=== PATIENT | female | born 1945 | race Caucasian/White ===

== ENCOUNTER → 2018-06-03 00:54 | Outpatient (CLI) | payer MEDICARE, OTHER, SELFPAY ==
--- NOTE | 2018-06-03 09:25 | DI.REPORT_ITS ---
SYMPTOM/DIAGNOSIS: R10.2 PELVIC PAIN FOR 3 WEEKS PELVIC ULTRASOUND: 06/03 Pelvic ultrasound was performed transabdominally and transvaginally. Please see the accompanying data sheet for measurements of the pelvic structures. There are apparent calcified uterine fibroids and acoustic shadowing from presumed fibroids obscures significant portions of the uterus, the fibroids are in the fundus and measure approximately 3 cm and 2.5 cm in diameter respectively. There is a 14 x 15 x 9 mm in diameter hypo echoic but solid mass-like finding in the lower uterine segment which appears to be associated with the endometrial canal and the possibility of an endometrial polyp is raised. Ovaries have reportedly been surgically removed and are not seen. No free fluid identified in the cul de sac. Limited scanning of the kidneys is unremarkable. CONCLUSION: Findings consistent with fibroids and question endometrial polyp or mass in a post-menopausal patient. Correlation with endometrial biopsy should be considered.
== END ==
PROVIDERS: PCP Family Medicine; Visit Provider Family Medicine
DX: R10.2 Pelvic and perineal pain (principal); D25.9 Leiomyoma of uterus, unspecified; Z78.0 Asymptomatic menopausal state
CPT/HCPCS: 76830; 76856

== ENCOUNTER 2018-06-22 08:21 | Outpatient (CLI) | payer MEDICARE, OTHER, SELFPAY ==
[2018-06-22 09:30] LABS: HCT 43.7 % (36.0-46.0); HGB 14.4 g/dL (12.0-15.5); Mean Corpuscular Hemoglobin 31.2 pg (27.0-33.0); Mean Corpuscular Volume 94.6 fL (80-95); Platelet Count 143 x1000/uL (130-400); RBC 4.62 m/cumm (4.00-5.20); RBC Distribution Width 13.3 % (11.7-14.6); White Blood Cell Count 6.61 k/cumm (4.4-10.8)
[2018-06-22 09:56] LABS: ALT 18 U/L (12-78); AST 18 U/L (15-37); Albumin 3.9 g/dL (3.4-5.0); Alkaline Phosphatase 66 U/L (46-116); Anion Gap 8.9 mmol/L (3-11); BUN 18 mg/dL (7-18); Bilirubin, Total 0.4 mg/dL (0.2-1.0); CO2 26.1 mmol/L (21.0-32.0); CREATININE 1.06 mg/dL (0.55-1.02); Calcium 9.3 mg/dL (8.5-10.1); Chloride 110 mmol/L (98-107); Glucose 88 mg/dL (70-100); Potassium 3.6 mmol/L (3.5-5.1); Sodium 145 mmol/L (136-145); Total Protein 7.3 g/dL (6.4-8.2)
== END 2018-06-22 08:41 ==
PROVIDERS: PCP Family Medicine; Visit Provider Obstetrics & Gynecology
DX: F03.90 Unspecified dementia, unspecified severity, without behavioral disturbance, psychotic disturbance, mood disturbance, and anxiety (principal); Z01.810 Encounter for preprocedural cardiovascular examination
CPT/HCPCS: 36415; 80053; 85027

== ENCOUNTER 2018-06-23 06:14 | PSDC | payer MEDICARE, OTHER, SELFPAY ==
[2018-06-23 06:30] VITALS: BP 109/65; PULSE 67; RESP 16; TEMP 36.6; O2SAT 98
[2018-06-23] MEDS: Lactated Ringers 1,000 ML 100 ML IV (06:52)
[2018-06-23] MEDS: Lidocaine 1% Pres-Free 5 ML VIAL 10 ML (07:50)
--- NOTE | 2018-06-23 07:57 | ENDOMET_PTH ---
PATIENT: Fawn Hernandez LOC: [facility] U#:[id number] AGE/SX: 72/F ROOM: RE06/23/[address]: Daniel Lei MD : [id number] BED: DIS: 06/23/2018 SPEC #: [id number] RECD: 06/23/18 12:41 STATUS: FORREST REQ #: [id number] DEEP: 06/23/18 07:[address]: Daniel Lei DEPT: Surgical Specimen RECD BY: Ayaka Vivar ENTERED: 06/23/18 12:42 SP TYPE: Endomet OTHR DR: Valerio Granger MD Tissues: 1 - ENDOMETRIUM BX/KATARINAETTE Procedures: GROSS AND MICRO LEVEL 4 Comments: [id number]
[2018-06-23 08:32] VITALS: BP 115/62; PULSE 64; RESP 16; TEMP 35.8; O2SAT 97
--- NOTE | 2018-06-23 13:11 | W.PM.OP ---
Date of service: 06/23/18 Time of Service: 09:00 Operative Note Date of procedure: 06/23/18 Pre-op diagnosis: Endometrial mass Procedure: Hysteroscopy D&C Surgeon: Daniel Lei Anesthesia: MAC and local Estimated blood loss (mL): 0 Pathology: none sent (Endometrial curettings ) Complications: None Patient was transported to: PACU Patient's condition: stable Findings: Normal hysteroscopic exam. No visible mass or polyp. Atrophic appearing endometrium Procedure Description: The patient was taken to the operating room and after adequate sedation the patient was placed in lithotomy postion. The patient was prepped and draped in the usual sterile manner. The bladder was straight cathed for approximately 100 ml of clear urine. Vaginal access was challenging due to significant postmenopausal atrophy. Visualization of the cervix was achieved with two Bethany retractors. A single toothed tenaculum was placed on the anterior lip of the cervix. The cervix was gently dilated with Coby dilators. The 5mm 30 degree hysteroscope with NS distention media was advanced without difficulty. Good visualization of the endometrial cavity was obtained. The endometrium appeared atrophic throughout. No mass could be visualized as was noted on ultrasound. A sharp curettage was performed and the specimen was submited to pathology. A second look with the hysteroscope was made and procedure concluded. All instrumentation was removed. The patient was transferred to PACU in stable condition.
== END 2018-06-23 09:04 | disposition home or self-care (01) ==
PROVIDERS: PCP Family Medicine; Visit Provider Obstetrics & Gynecology
PROC: 0UDB8ZZ Extraction of Endometrium, Via Natural or Artificial Opening Endoscopic (ICD-10-PCS; CPT 58558; principal; 2018-06-23 07:30)
DX: N84.0 Polyp of corpus uteri (principal)
CPT/HCPCS: 58558; 88305

== ENCOUNTER 2018-11-11 16:03 | Emergency (ER) | payer MEDICARE, OTHER, SELFPAY ==
[2018-11-11 16:15] VITALS: BP 133/49; PULSE 71; RESP 16; TEMP 36.5; O2SAT 100
--- NOTE | 2018-11-11 17:15 | ED.GENADUL_ITS ---
Discharge Plan Disposition Patient Disposition: HOME Condition: Stable Discharge Details Chief Complaint: Laceration Clinical Impression: Finger laceration Primary Care Provider: Valerio Granger ED Provider: Ana Richards Home Meds and New Rx's Prescriptions: New cephalexin [Keflex] 500 mg capsule 500 mg PO TID 7 Days Qty: 21 RF: 0 Continued pantoprazole 40 mg tablet,delayed release (DR/EC) 40 mg PO DAILY Qty: 90 RF: 3 potassium chloride 20 mEq tablet extended release 20 meq PO DAILY Qty: 90 RF: 3 sulfamethoxazole-trimethoprim 400-80 mg tablet 1 tab PO three times/week Qty: 36 RF: 3 buspirone 5 mg tablet 5 mg PO BID Qty: 180 RF: 3 cyanocobalamin (vitamin B-12) 1,000 mcg tablet 1,000 mcg PO DAILY RF: 0 Latuda 60 mg tablet 60 mg PO QAM RF: 0 lorazepam 1 mg tablet 0.5 - 1 mg PO BID Qty: 90 RF: 2 cholecalciferol (vitamin D3) 5,000 UNIT capsule 5,000 unit PO DAILY Qty: 90 RF: 4 calcium polycarbophil [Fiber-Tabs] 625 MG tablet 625 mg PO DAILY RF: 0 levothyroxine 25 MCG tablet 12.5 mcg PO DAILY Qty: 45 RF: 3 ibuprofen 200 MG capsule 200 mg PO am prn RF: 0 flaxseed oil 1,000 MG capsule 1,000 mg PO DAILY RF: 0 omega-3 fatty acids-fish oil 1 EACH capsule 1 ea PO DAILY RF: 0 boron 3 mg PO DAILY RF: 0 topiramate 100 MG tablet 100 mg PO BID Qty: 180 RF: 3 Lyrica 100 MG capsule 100 mg PO BID Qty: 180 RF: 3 sertraline 50 mg tablet 50 mg PO DAILY RF: 0 diphenhydramine-acetaminophen [Tylenol PM Extra Strength] 1 EACH tablet 2 ea PO HS RF: 0 Discharge Instructions Instructions: Finger Laceration (ED) Additional Instructions: Keep the finger clean, dry and covered. If you develop any worsening symptoms of increased pain, redness or swelling, you may start the antibiotics. Follow-up with your primary care doctor in 1 week for reevaluation. Return immediately to the emergency department any worsening or new concerning symptoms. Discharge Data Discharge Date/Time-TO BE ENTERED AT DEPARTURE: 11/11/18 18:30 Discharge Physician: Ana Richards Medical Decision Making 72-year-old female who presents with right thumb laceration sustained on metal lid of a can 3-1/2 weeks ago, then reopened on a metal pick of a loom recently who presents for worsening pain and concern about infection. Tetanus up-to-date, determine to be under 10 years. Right thumb appears to have a 1 cm open laceration on the palmar surface of her distal thumb. There is tenderness to palpation with very minimal edema but no erythema, drainage, induration, fluctuance or abscess. At this point in time, I think her pain is likely due to the open wound and no significant infection. As the wound does not appear to be closing, will close loosely with Steri-Strips and a bulky bandage. Discussed with patient that due to the area of the wound and re-opening, as soon as the edges approximate and heal, she will likely have improvement in symptoms. I do not see any acute indication for antibiotics at this time, but will send home with a prescription for Keflex if her symptoms do not improve or worsen. She is instructed to follow-up with her primary care doctor in 1 week for reevaluation. She is instructed to return here at any time if worse. Pt may have eloped prior to receiving discharge paperwork. It was extremely busy in the ED with critical patients and pt left w/o her scripts/dc instructions. HPI General Mode of arrival: ambulatory . Date/Time Provider Initiated Documentation: 11/11/18 16:18 . Limitations to Documentation: no limitations . Information obtained by: patient . HPI Narrative: Patient is a 72-year-old female who presents with right thumb laceration sustained on metal lid of a can 3-1/2 weeks ago, then reopened on a metal pick of a loom recently who presents for worsening pain and concern about infection. She states she is frequently reopening the wound and is not healing. Pt denies any fever. She denies any foreign body in wound and states she has just cut and reopened the wound. She is unsure of her tetanus status. Related Data Home Medications Medication Instructions Recorded Confirmed diphenhydramine-acetaminophen 2 ea PO HS 08/22/17 11/11/18 [Tylenol PM Extra Strength] cholecalciferol (vitamin D3) 5,000 unit PO DAILY #90 cap 09/17/17 11/11/18 calcium polycarbophil [Fiber-Tabs] 625 mg PO DAILY 11/19/17 11/11/18 levothyroxine 12.5 mcg PO DAILY #45 tab-cap 04/01/18 11/11/18 ibuprofen 200 mg PO am prn tab-cap 05/06/18 11/11/18 [place] 3 mg PO DAILY 06/02/18 11/11/18 Lyrica 100 mg PO BID #180 tab-cap 06/02/18 11/11/18 flaxseed oil 1,000 mg PO DAILY 06/02/18 11/11/18 omega-3 fatty acids-fish oil 1 ea PO DAILY 06/02/18 11/11/18 topiramate 100 mg PO BID #180 tab-cap 06/02/18 11/11/18 buspirone 5 mg tablet 5 mg PO BID #180 tab 08/04/18 11/11/18 pantoprazole 40 mg tablet,delayed 40 mg PO DAILY #90 tab-cap 08/04/18 11/11/18 release potassium chloride ER 20 mEq 20 meq PO DAILY #90 tab-cap 08/04/18 11/11/18 tablet,extended release sulfamethoxazole 400 1 tab PO three times/week #36 tab 08/04/18 11/11/18 mg-trimethoprim 80 mg tablet cyanocobalamin (vit B-12) 1,000 1,000 mcg PO DAILY 09/16/18 11/11/18 mcg tablet lorazepam 1 mg tablet 0.5 - 1 mg PO BID #90 tab 10/07/18 11/11/18 lurasidone 60 mg tablet 60 mg PO QAM tab 10/07/18 11/11/18 cephalexin [Keflex] 500 mg PO TID 7 Days #21 cap 11/11/18 sertraline 50 mg tablet 50 mg PO DAILY 11/11/18 Previous Rx's Medication Instructions Recorded cholecalciferol (vitamin D3) 5,000 unit PO DAILY #90 cap 09/17/17 levothyroxine 12.5 mcg PO DAILY #45 tab-cap 04/01/18 Lyrica 100 mg PO BID #180 tab-cap 06/02/18 topiramate 100 mg PO BID #180 tab-cap 06/02/18 buspirone 5 mg tablet 5 mg PO BID #180 tab 08/04/18 pantoprazole 40 mg tablet,delayed 40 mg PO DAILY #90 tab-cap 08/04/18 release potassium chloride ER 20 mEq 20 meq PO DAILY #90 tab-cap 08/04/18 tablet,extended release sulfamethoxazole 400 1 tab PO three times/week #36 tab 08/04/18 mg-trimethoprim 80 mg tablet lorazepam 1 mg tablet 0.5 - 1 mg PO BID #90 tab 10/07/18 cephalexin [Keflex] 500 mg PO TID 7 Days #21 cap 11/11/18 Allergies Allergy/AdvReac Type Severity Reaction Status Date / Time morphine AdvReac Mild VOMITS Verified 11/11/18 16:17 General Stated Complaint: Laceration MARSHA: 4 Review of Systems Review of Systems All systems reviewed & are unremarkable except as noted in HPI and below Constitutional Reports as per HPI, Denies chills and Denies fever(s) Eyes Denies blurry vision ENT Denies dizziness, Denies sore throat and Denies throat swelling Cardiovascular Denies chest pain and Denies dyspnea Respiratory Denies cough and Denies dyspnea Gastrointestinal Denies abdominal pain, Denies diarrhea and Denies vomiting Genitourinary Denies hematuria and Denies dysuria Musculoskeletal Denies back pain and Denies numbness Integumentary/Breasts Denies lesions and Denies rash Neurologic Denies dizziness, Denies focal weakness and Denies numbness Allergic/Immunologic Denies throat swelling [facility] Medical History Dementia (Chronic) Myocardial infarction (Chronic) ASCVD (arteriosclerotic cardiovascular disease) Bipolar 2 disorder Breast cancer Diabetes Dyspnea Fibromyalgia GERD (gastroesophageal reflux disease) Glaucoma Hyperlipidemia Hyponatremia Hypothyroid Osteoarthritis [place] Vitamin B12 deficiency Surgical History History of bilateral oophorectomy (Acute) History of lumpectomy (Acute) History of cataract surgery (Chronic) History of cataract surgery (Chronic) History of knee replacement (Chronic) History of knee replacement (Chronic) BUNIONECTOMY CARDIAC CATH Oophrectomy, Both Family History Mother Neoplasm Father Heart disease Brother No problems noted. Grandfather No problems noted. FAMILY HISTORY Depression Social History household members: other details: SELF current occupational status: retired pets and animals: Yes (cat) Smoking/Tobacco Use Status: Current every day tobacco type: cigarettes alcohol intake: never substance use type: does not use chanelle/restorationist: Unitarian Universalist special chanelle needs: No Exam Const General: cooperative, healthy appearing and no acute distress HENMT Head: normal to inspection Mouth: oral mucosae normal Eyes General: appearance normal, both eyes and all related structures Neck Neck: normal visual inspection Resp Effort & Inspection: normal respiratory effort and able to speak in complete sentences Cardio Rate: regular rate Skin General skin exam: no rashes or lesions noted Neuro General: alert, awake and oriented x3 Motor: muscle tone normal throughout Extrem Hand/finger images: 1. There is an approximate 1cm open laceration on palmar surface of R thumb with healing hardened edges noted, appears old. Tenderness to palpation with minimal edema around wound. No erythema, induration, fluctuance, drainage or bleeding. No foreign body noted. Psych Appearance: grossly normal Affect: normal affect Course Vital Signs Temperature 97.7 F 11/11/18 16:15 Pulse 71 11/11/18 16:15 Respiratory Rate 16 11/11/18 16:15 Blood Pressure 133/49 L 11/11/18 16:15 Pulse Oximetry 100 11/11/18 16:15 Temperature 97.7 F 11/11/18 16:15 Temperature Source Skin 11/11/18 16:15 Pulse 71 11/11/18 16:15 Respiratory Rate 16 11/11/18 16:15 Respiratory Effort Non-Labored 11/11/18 16:15 Blood Pressure 133/49 L 11/11/18 16:15 Blood Pressure Position Sitting 11/11/18 16:15 Pulse Oximetry 100 11/11/18 16:15 Oxygen Delivery Method Room Air 11/11/18 16:15 Oxygen Flow Rate 0 11/11/18 16:15 Pain Level 9 11/11/18 16:32
--- NOTE | 2018-11-12 09:47 | NUR.NOTE ---
Nursing Note: Fawn ballardoped yesterday during her visit. She left without the discharge instructions and prescription. The instructions are being mailed to the patient. The prescription was called in to [facility] @ [phone]. Spoke with patient @ 0052 and she is aware that the prescription is there. Yaneli Farmer.
== END 2018-11-11 18:30 | disposition home or self-care (01) ==
PROVIDERS: Emergency Provider Physician Assistant; PCP Family Medicine
DX: S65.011A Laceration of ulnar artery at wrist and hand level of right arm, initial encounter (principal); W26.8XXA Contact with other sharp object(s), not elsewhere classified, initial encounter
CPT/HCPCS: 99283

== ENCOUNTER 2019-02-17 10:56 | Outpatient (CLI) | payer MEDICARE, OTHER, SELFPAY ==
[2019-02-17 11:22] LABS: Absolute Basophil Count 0.01 k/cumm (0.0-0.2); Absolute Eosinophil Count 0.01 k/cumm (0.0-0.7); Absolute Lymphocyte Count 1.25 k/cumm (1.2-3.4); Absolute Monocyte Count 0.31 k/cumm (0.11-0.7); Absolute Neutrophil Count 3.76 k/cumm (1.2-6.7); Basophils % 0.2; Eosinophils % 0.2; HCT 39.7 % (36.0-46.0); HGB 13.2 g/dL (12.0-15.5); Lymphocytes % 23.4; Mean Corp. HGB Concentration 33.2 g/dL (32.0-36.0); Mean Corpuscular Hemoglobin 31.6 pg (27.0-33.0); Mean Platelet Volume 9.5 fL (8.0-11.0); Monocytes % 5.8; Neutrophils % 70.4; Platelet Count 147 x1000/uL (130-400); RBC 4.18 m/cumm (4.00-5.20); RBC Distribution Width 13.9 % (11.7-14.6); White Blood Cell Count 5.34 k/cumm (4.4-10.8)
[2019-02-17 12:21] LABS: ALT 32 U/L (12-78); AST 21 U/L (15-37); Alkaline Phosphatase 52 U/L (46-116); Anion Gap 11.2 mmol/L (3-11); BUN 24 mg/dL (7-18); Bilirubin, Total 0.3 mg/dL (0.2-1.0); CO2 24.8 mmol/L (21.0-32.0); CREATININE 1.04 mg/dL (0.55-1.02); Calcium 9.1 mg/dL (8.5-10.1); Chloride 105 mmol/L (98-107); Estimated GFR 52.09 (mL/min/1.73m2); Glucose 96 mg/dL (70-100); Potassium 4.4 mmol/L (3.5-5.1); Sodium 141 mmol/L (136-145); Total Protein 6.8 g/dL (6.4-8.2)
== END 2019-02-17 11:16 ==
PROVIDERS: PCP Family Medicine; Visit Provider Family Medicine
DX: R63.4 Abnormal weight loss (principal)
CPT/HCPCS: 36415; 80053; 85025

== ENCOUNTER 2019-02-23 00:44 | Outpatient (CLI) | payer MEDICARE, OTHER, SELFPAY ==
--- NOTE | 2019-02-23 13:45 | DI.CTLCSR_ITS ---
SYMPTOMS/DIAGNOSIS: 50 PACK YEAR HX OF SMOKING, SCREENING, CURRENT SMOKER, F17.210, Z12.[address] FOR LUNG CANCER SCREENING: A low dose screening protocol was performed. There is calcification of the thoracic aorta but no evidence of an aneurysm. Coronary artery calcifications are also seen. The heart size is normal. There are no pleural or pericardial effusions or evidence of adenopathy. There is mild central lobular emphysema greatest in the upper lobes. There are a few scattered intrapulmonary calcifications consistent with old healed granulomatous disease. No suspicious pulmonary nodules are identified. No infiltrates are seen. The visualized portions of the upper abdomen are grossly normal. Degenerative changes are seen in the spine. Scoliosis is also present. IMPRESSION: Lung RADS Category I. Continued annual low dose screening CT is recommended.
== END 2019-02-23 01:04 ==
PROVIDERS: PCP Family Medicine; Visit Provider Family Medicine
DX: Z12.2 Encounter for screening for malignant neoplasm of respiratory organs (principal); F17.210 Nicotine dependence, cigarettes, uncomplicated; J84.10 Pulmonary fibrosis, unspecified
CPT/HCPCS: G0297

== ENCOUNTER 2019-03-19 09:11 | Outpatient (CLI) | payer MEDICARE, OTHER, SELFPAY ==
[2019-03-19 11:36] LABS: TSH (W/Ref FT4) 1.72 uIU/mL (0.358-3.74)
== END 2019-03-19 09:31 ==
PROVIDERS: PCP Family Medicine; Visit Provider Family Medicine
DX: E03.9 Hypothyroidism, unspecified (principal)
CPT/HCPCS: 36415; 84443

== ENCOUNTER 2019-05-16 15:10 | Emergency (ER) | payer MEDICARE, OTHER, SELFPAY ==
[2019-05-16 15:13] VITALS: BP 149/68; PULSE 88; RESP 18; TEMP 37.3; O2SAT 99
--- NOTE | 2019-05-16 15:18 | NUR.NOTE ---
Nursing Note: pt denies suicidal and homicidal ideation.
--- NOTE | 2019-05-16 16:07 | W.ED.GENAD ---
Discharge Plan Disposition Patient Disposition: HOME Condition: Stable Discharge Details Chief Complaint: PsychEval Clinical Impression: Anxiety Primary Care Provider: Valerio Granger ED Provider: Ana Richards Home Meds and New Rx's Prescriptions: Continued pantoprazole 40 mg tablet,delayed release (DR/EC) 40 mg PO DAILY Qty: 90 RF: 3 potassium chloride 20 mEq tablet extended release 20 meq PO DAILY Qty: 90 RF: 3 sulfamethoxazole-trimethoprim 400-80 mg tablet 1 tab PO three times/week Qty: 36 RF: 3 pyridoxine (vitamin B6) 50 mg capsule 50 mg PO DAILY RF: 0 thiamine HCl (vitamin B1) 100 mg tablet 100 mg PO DAILY Qty: 30 RF: 5 docusate sodium 250 mg capsule 250 mg PO DAILY RF: 0 melatonin 10 mg capsule 10 mg PO HS PRNRF: 0 Myrbetriq 25 mg tablet extended release 24 hr 25 mg PO DAILY Qty: 30 RF: 2 lorazepam 1 mg tablet 1 mg PO QID RF: 0 topiramate 50 mg tablet 75 mg PO BID Qty: 90 RF: 2 cyanocobalamin (vitamin B-12) 1,000 mcg tablet 1,000 mcg PO DAILY RF: 0 Latuda 60 mg tablet 60 mg PO QAM RF: 0 buspirone 5 mg tablet 5 mg PO BID RF: 0 magnesium 250 mg tablet 250 mg PO DAILY RF: 0 levothyroxine 25 mcg tablet 12.5 mcg PO DAILY Qty: 45 RF: 3 cholecalciferol (vitamin D3) 5,000 UNIT capsule 5,000 unit PO DAILY Qty: 90 RF: 4 calcium polycarbophil [Fiber-Tabs] 625 MG tablet 625 mg PO DAILY RF: 0 ibuprofen 200 MG capsule 200 mg PO am prn RF: 0 flaxseed oil 1,000 MG capsule 1,000 mg PO DAILY RF: 0 boron 3 mg PO DAILY RF: 0 sertraline 50 mg tablet 50 mg PO DAILY RF: 0 topiramate 100 mg tablet 100 mg PO BID Qty: 180 RF: 3 Discharge Instructions Instructions: Anxiety (ED) Additional Instructions: Follow-up with your [facility]. Follow-up with your primary care doctor for reevaluation. Return to the emergency department with any worsening or new concerning symptoms. Discharge Data Discharge Physician: Ana Richards Medical Decision Making 73-year-old female with history of dementia, bipolar disorder, anxiety, mixed personality disorder who presents for mental breakdown. Patient states she called the ambulance early today due to increased anxiety. Just prior to my evaluation, patient approached the nurses station requesting to go home. Discussed with patient that she feels much better and she wants to go home to her cat. Caregiver is present at bedside and states that patient appears at her mental status baseline however she did complain of feeling suicidal earlier today. Patient states she is no longer suicidal. She states she has an appointment with her counselor at [facility] tomorr for adjustment of her medications and would rather go home at this time and follow-up with that appointment. Discussed with patient that as she admitted to feeling suicidal earlier, she will need a behavioral health consult. Patient was initially resistant to this, and began to cry and appeared anxious but was able to be redirected. Will give a dose of Ativan p.o. as she is prescribed this 4 times daily and call mental health. Also discussed with patient regarding her 60 pound weight loss and whether she has an acute medical cause for her symptoms. She denies any fever, chest pain, shortness of breath, abdominal pain or urinary symptoms. She states she was evaluated by her primary care doctor 2 days ago and was found negative for urinary tract infection. 1900 --patient evaluated by mental health and cleared for discharge home. Patient will follow up with her appointment [facility]. Advised to return here with any concerns. HPI General Mode of arrival: ambulatory. Date/Time Provider Initiated Documentation: 05/16/19 15:20. Limitations to Documentation: no limitations. Information obtained by: patient. HPI Narrative: Patient is a 73-year-old female with a history of bipolar disorder, anxiety, mixed personality disorder, dementia who presents to the ED for anxiety. Caregiver who presents with patient stated that patient called the ambulance for a mental breakdown. Patient states she was concerned about not being able to reach her caregiver so she called the ambulance. Patient is requesting to leave at this time as she feels much better. She states she has an appointment with [facility]. Patient had admitted to a weight loss over the past year but states she is not concerned about this. She states she had an appoint with her primary care doctor in the office 2 days ago and was evaluated. She stated he that her urine was checked and negative for infection. Patient denies suicidal ideation at this time. Related Data Home Medications Medication Instructions Recorded Confirmed cholecalciferol (vitamin D3) 5,000 unit PO DAILY #90 cap 09/17/17 03/19/19 calcium polycarbophil [Fiber-Tabs] 625 mg PO DAILY 11/19/17 03/19/19 ibuprofen 200 mg PO am prn tab-cap 05/06/18 03/19/19 [place] 3 mg PO DAILY 06/02/18 03/19/19 flaxseed oil 1,000 mg PO DAILY 06/02/18 03/19/19 pantoprazole 40 mg tablet,delayed 40 mg PO DAILY #90 tab-cap 08/04/18 03/19/19 release potassium chloride 20 mEq 20 meq PO DAILY #90 tab-cap 08/04/18 03/19/19 tablet,extended release sulfamethoxazole 400 1 tab PO three times/week #36 tab 08/04/18 03/19/19 mg-trimethoprim 80 mg tablet cyanocobalamin (vitamin B-12) 1,000 mcg PO DAILY 09/16/18 03/19/19 1,000 mcg tablet sertraline 50 mg tablet 50 mg PO DAILY 11/11/18 03/19/19 pyridoxine (vitamin B6) 50 mg 50 mg PO DAILY 12/16/18 03/19/19 capsule thiamine HCl (vitamin B1) 100 mg 100 mg PO DAILY #30 tab 12/16/18 03/19/19 tablet lurasidone 60 mg tablet 60 mg PO QAM tab 02/17/19 03/19/19 buspirone 5 mg tablet 5 mg PO BID tab 03/19/19 03/19/19 levothyroxine 25 mcg tablet 12.5 mcg PO DAILY #45 tab-cap 03/19/19 03/19/19 magnesium 250 mg tablet 250 mg PO DAILY 03/19/19 03/19/19 topiramate 100 mg tablet 100 mg PO BID #180 tab-cap 05/03/19 docusate sodium 250 mg capsule 250 mg PO DAILY 05/14/19 05/14/19 lorazepam 1 mg tablet 1 mg PO QID tab 05/14/19 05/14/19 melatonin 10 mg capsule 10 mg PO HS PRN 05/14/19 05/14/19 mirabegron 25 mg tablet,extended 25 mg PO DAILY #30 tab 05/14/19 05/14/19 release 24 hr topiramate 50 mg tablet 75 mg PO BID #90 tab 05/14/19 05/14/19 Previous Rx's Medication Instructions Recorded cholecalciferol (vitamin D3) 5,000 unit PO DAILY #90 cap 09/17/17 pantoprazole 40 mg tablet,delayed 40 mg PO DAILY #90 tab-cap 08/04/18 release potassium chloride 20 mEq 20 meq PO DAILY #90 tab-cap 08/04/18 tablet,extended release sulfamethoxazole 400 1 tab PO three times/week #36 tab 08/04/18 mg-trimethoprim 80 mg tablet thiamine HCl (vitamin B1) 100 mg 100 mg PO DAILY #30 tab 12/16/18 tablet levothyroxine 25 mcg tablet 12.5 mcg PO DAILY #45 tab-cap 03/19/19 topiramate 100 mg tablet 100 mg PO BID #180 tab-cap 05/03/19 mirabegron 25 mg tablet,extended 25 mg PO DAILY #30 tab 05/14/19 release 24 hr topiramate 50 mg tablet 75 mg PO BID #90 tab 05/14/19 Allergies Allergy/AdvReac Type Severity Reaction Status Date / Time morphine AdvReac Mild VOMITS Verified 05/14/19 14:59 General Stated Complaint: PsychEval MARSHA: 3 Review of Systems Review of Systems All systems reviewed & are unremarkable except as noted in HPI and below Constitutional Reports as per HPI, Denies chills and Denies fever(s) Eyes Denies blurry vision ENT Denies dizziness, Denies sore throat and Denies throat swelling Cardiovascular Denies chest pain and Denies dyspnea Respiratory Denies cough and Denies dyspnea Gastrointestinal Denies abdominal pain, Denies diarrhea and Denies vomiting Genitourinary Denies hematuria and Denies dysuria Musculoskeletal Denies back pain and Denies numbness Integumentary/Breasts Denies lesions and Denies rash Neurologic Denies dizziness, Denies focal weakness and Denies numbness Allergic/Immunologic Denies throat swelling [facility] Social History Smoking/Tobacco Use Status: Current every day Tobacco Type: cigarettes Alcohol Intake: never Drug use: Never Substance use type: does not use Household members: other Details: SELF Pets and animals: Yes (cat) What type of physical activity do you participate in: none Mini/Yazdanism: Unitarian Universalist Special mini needs: No Do you feel safe in your relationship?: No Exam Const General: cooperative, healthy appearing and no acute distress HENMT Head: normal to inspection Mouth: oral mucosae normal Eyes General: appearance normal, both eyes and all related structures Neck Neck: normal visual inspection Resp Effort & Inspection: normal respiratory effort and able to speak in complete sentences Cardio Rate: regular rate Skin General skin exam: no rashes or lesions noted Neuro General: alert, awake and oriented x3 Motor: muscle tone normal throughout Extrem General: normal to inspection and full ROM Psych Appearance: grossly normal Affect: normal affect Course Vital Signs Temperature 99.1 F 05/16/19 15:13 Pulse 88 05/16/19 15:13 Respiratory Rate 18 05/16/19 15:13 Blood Pressure 149/68 H 05/16/19 15:13 Pulse Oximetry 99 05/16/19 15:13 Temperature 99.1 F 05/16/19 15:13 Temperature Source Skin 05/16/19 15:13 Pulse 88 05/16/19 15:13 Respiratory Rate 18 05/16/19 15:13 Respiratory Effort Non-Labored 05/16/19 15:13 Blood Pressure 149/68 H 05/16/19 15:13 Blood Pressure Position Supine 05/16/19 15:13 Pulse Oximetry 99 05/16/19 15:13 Oxygen Delivery Method Room Air 05/16/19 15:13 Oxygen Flow Rate 0 05/16/19 15:13
[2019-05-16] MEDS: LORazepam 1 MG TAB PO (16:15)
[2019-05-16 18:59] VITALS: BP 158/72; PULSE 77; RESP 16; O2SAT 100
== END 2019-05-16 18:57 | disposition home or self-care (01) ==
PROVIDERS: Emergency Provider Physician Assistant; PCP Family Medicine
DX: F41.9 Anxiety disorder, unspecified (principal); F31.9 Bipolar disorder, unspecified; F03.90 Unspecified dementia, unspecified severity, without behavioral disturbance, psychotic disturbance, mood disturbance, and anxiety; R63.4 Abnormal weight loss; R45.851 Suicidal ideations
CPT/HCPCS: 99283

== ENCOUNTER → 2019-06-02 12:46 | Outpatient (BNVA) | payer MEDICARE, OTHER, SELFPAY | PROVIDERS: PCP Family Medicine; Referring Provider Family Medicine; Visit Provider Nurse Practitioner Gerontology | DX: R35.0 Frequency of micturition (principal); N39.41 Urge incontinence; N32.81 Overactive bladder; I10 Essential (primary) hypertension | CPT/HCPCS: 51798; 81003; 99204; 99215 ==

== ENCOUNTER 2019-06-15 01:11 | Outpatient (CLI) | payer MEDICARE, OTHER, SELFPAY ==
[2019-06-17 10:27] LABS: Vitamin D 25 Total 147.7 ng/ml (30-100)
== END 2019-06-15 01:31 ==
PROVIDERS: PCP Family Medicine; Visit Provider Family Medicine
DX: R79.89 Other specified abnormal findings of blood chemistry (principal); E67.3 Hypervitaminosis D
CPT/HCPCS: 36415; 82306

== ENCOUNTER 2019-07-28 02:05 | Outpatient (CLI) | payer MEDICARE, OTHER, SELFPAY ==
[2019-07-29 13:25] LABS: Vitamin D 25 Total 145.6 ng/ml (30-100)
== END 2019-07-28 02:25 ==
PROVIDERS: PCP Family Medicine; Visit Provider Family Medicine
DX: E67.3 Hypervitaminosis D (principal)
CPT/HCPCS: 36415; 82306

== ENCOUNTER → 2019-09-27 10:24 | Outpatient (BNVA) | payer MEDICARE, OTHER, SELFPAY | PROVIDERS: PCP Family Medicine; Referring Provider Family Medicine; Visit Provider Nurse Practitioner Gerontology | DX: N32.81 Overactive bladder (principal); N39.41 Urge incontinence | CPT/HCPCS: 99213 ==

== ENCOUNTER 2019-10-26 02:14 | Outpatient (CLI) | payer MEDICARE, OTHER, SELFPAY ==
[2019-10-30 03:33] LABS: 1,25-Dihydroxyvitamin D 37 pg/mL (18-78)
== END 2019-10-26 02:34 ==
PROVIDERS: PCP Family Medicine; Visit Provider Family Medicine
DX: T45.2X1A Poisoning by vitamins, accidental (unintentional), initial encounter (principal); E67.3 Hypervitaminosis D
CPT/HCPCS: 36415; 82652

== ENCOUNTER 2019-11-14 12:04 | Emergency (ER) | payer MEDICARE, OTHER, SELFPAY ==
[2019-11-14] VITALS (29 sets, daily range): BP systolic 101–182; BP diastolic 51–81; PULSE 66–83; RESP 11–24; TEMP 36; O2SAT 98–100
--- NOTE | 2019-11-14 12:25 | ED.GENADUL_ITS ---
Discharge Plan Disposition Patient Disposition: STILL A PATIENT Condition: Stable Discharge Details Chief Complaint: OD/Poison Clinical Impression: Overdose Primary Care Provider: Valerio Granger ED Provider: Peri Soriano Home Meds and New Rx's Prescriptions: No Action melatonin 10 mg capsule 10 mg PO HS PRNRF: 0 clonidine HCl 0.1 mg tablet 0.1 mg PO BID RF: 0 magnesium 250 mg tablet 125 mg PO DAILY RF: 0 quetiapine [Seroquel] 100 mg tablet 100 mg PO HS RF: 0 buspirone 5 mg tablet 15 mg PO BID RF: 0 levothyroxine 25 mcg tablet 12.5 mcg PO DAILY Qty: 45 RF: 3 lactulose 10 gram/15 mL solution 20 gm PO BID PRN (Reason: constipation) Qty: 500 RF: 0 pantoprazole 40 mg tablet,delayed release (DR/EC) 40 mg PO DAILY Qty: 90 RF: 3 potassium chloride 20 mEq tablet extended release 20 meq PO DAILY Qty: 90 RF: 3 sulfamethoxazole-trimethoprim 400-80 mg tablet 1 tab PO three times/week Qty: 36 RF: 3 ibuprofen 200 MG capsule 200 mg PO am prn RF: 0 sertraline 50 mg tablet 50 mg PO DAILY RF: 0 topiramate 50 mg tablet 50 mg PO BID Qty: 60 RF: 5 topiramate 25 mg tablet 25 mg PO BID Qty: 60 RF: 5 calcium polycarbophil [Fiber-Tabs] 625 mg tablet 625 mg PO DAILY Qty: 90 RF: 3 cyanocobalamin (vitamin B-12) 1,000 mcg capsule 1,000 mcg PO DAILY Qty: 90 RF: 3 docusate sodium 100 mg capsule 100 mg PO DAILY Qty: 90 RF: 3 flaxseed oil 1,000 mg capsule 1,000 mg PO DAILY Qty: 90 RF: 3 Myrbetriq 50 mg tablet extended release 24 hr 50 mg PO DAILY Qty: 30 RF: 3 lorazepam 1 mg tablet 1 mg PO QID Qty: 56 RF: 0 quetiapine 50 mg Tablet 50 mg PO BID RF: 0 Medical Decision Making <MERVAT Batres - Last Filed: 11/14/19 18:48> Patient is a 73 year old female presenting today with c/c of drug ingestion. Patient has pre-packed bubble packaged daily medications. Patient has home care givers from [phone] daily for assistance as she has hx of dementia. They noted her to have increased confusion. Jemima forgot that shemikd turned on the stove and left his on. When discussing the medication error with the patient, the patient states that her PCP recently changed her medications and she believes that she is supposed to be increasing her medications. She did not take an overdose of her medications purposefully, this was not a suicide attempt or attempt to harm herself. At this time, we do not have an accurate list of what was in the bubble packs, going off of what is listed on the home medications that would have been updated her last primary care visit, I did contact poison control. They advised that none of these taken at 4 days do think would be life-threatening but a combo of these would be more problematic. In particular, she would expect the patient to become extremely drowsy. She is awake and alert at this time, is unclear as when she may have taken the medications. They did advise a 6-hour monitoring time. Did advise Tylenol and aspirin levels be obtained. We did discuss potential QTC prolongation but this is normal and the EKG was reviewed by Dr. Richards. EKG was reviewed by Dr. Richards. Patient is in normal sinus rhythm with a rate of 68. No acute ischemic changes are noted. Patient does appear more fatigued. We were able to get a list and was able to determine medictions suspected of overdose. Suspect that the patient took 4 doses of: 15mg buspirone, 0.1mg Clonidine, Lorazepam 1mg, quetiapine 50mg, bactrim, topiramate. These were included in the discussion with poison control. Labs reviewed. Creatinine 1.2. This is baseline. Patient is also baseline anemic. No acute changes noted. Patient more alert. She was upset about receiving IV hydration and this was stopped. She is eating and drinking. Home care provider told women's health care nurse practitioner that patient had expressed throughts of suicide last Friday. She is denying this at this time. Will consult with mental health. Mental health evaluated the patient. She feels that she is safe from discharge and is not an acute threat to herself. However, group discuss with home care providers is concerning for generalized safety at home. Patient does not want to go to an assisted living facilty, does not have family or other support group outside of her hired home care providers. Plan to contact management with home care providers. Patient needs to have limitations on her stove, needs to have someone else in control of her medications and need adjustment to staff. It has been expressed by patient and home care givers that there is a staff member that can cause distress for the patient. At the end of my shift, call is pending. Patient to stay here for 2 more hours for continued monitoring until we can clear her based on recommendations from poison control. <Peri Soriano - Last Filed: 11/14/19 17:19> 1629: Spoke with Ree from the home care agency regarding this 3 recommendations discussed with mental health. One recommendation was to change the daytime provider from yesy Portillo to Radha. #2 is to have the gas company put a lock on the stove. And #3 is to have someone administer her meds and have the medications locked up otherwise. Jessica to call me back. 1639: Spoke with Ree from the home care agency again who reports that they can do all the recommended changes but not until tomorrow morning. At this time there does not seem to be a medical reason for admission. Care management called to speak with the caregivers regarding tonight's care of the patient. 1701: Spoke with Brook from care management Radha the the caregiver at the bedside reports that she will stay with the patient tonight take the knobs off the stove. Make sure that the patient gets to bed safely. And lock up her medications for tonight. I will instruct her not to give her her night medications. And then the caregiver Radha will be at her house at 8 AM tomorrow morning. Patient is sleeping, breathing eupneic. Spoke with Poision shahid. Patient awakens easily upon stimulation. Vital signs are as follows heart rate 73 respirations 2397% on room air 113/57 his blood pressure temperature is 36.9. At this time poison control is closed out patient's chart. Will discharge into caregivers care due to no medical reason to keep patient overnight. The caregiver will lock up her medications tonight and be there at 8 AM in the morning. HPI <MERVAT Batres - Last Filed: 11/14/19 18:48> General Mode of arrival: ambulatory . Date/Time Provider Initiated Documentation: 02/02/20 12:25 . Limitations to Documentation: altered mental status (patient has dementia at baseline) . Information obtained by: patient, family (home care provider) and RN notes reviewed . HPI Narrative: Patient is a 73 year old female presenting today for evaluation after overdose of unknown medications at unknown time. Patient has bubble packed daily medications that are divided up by times of daily. After ho wa care provider noted the patient having increased fatigue and increased confusion, she noted that the patient has 4 empty bubble packets that should not have been used as of yet. The bubble packs are not here, unclear as to what the patient may have taken. Fawn reports feeling well. She denies N/V, CP, SOB. No recent illness, cough/cold/fevers/chills. commercial census taker believes that her typically slurred speech is slightly worse than typical. Related Data Home Medications Medication Instructions Recorded Confirmed ibuprofen 200 mg PO am prn tab-cap 05/06/18 11/02/19 sertraline 50 mg tablet 50 mg PO DAILY 11/11/18 11/14/19 levothyroxine 25 mcg tablet 12.5 mcg PO DAILY #45 tab-cap 03/19/19 11/14/19 melatonin 10 mg capsule 10 mg PO HS PRN 05/14/19 11/02/19 clonidine HCl 0.1 mg tablet 0.1 mg PO BID 06/02/19 11/14/19 topiramate 25 mg tablet 25 mg PO BID #60 tab 06/07/19 11/14/19 topiramate 50 mg tablet 50 mg PO BID #60 tab 06/07/19 11/14/19 calcium polycarbophil 625 mg tablet 625 mg PO DAILY #90 tab 06/10/19 11/02/19 cyanocobalamin (vitamin B-12) 1,000 mcg PO DAILY #90 cap 06/10/19 11/02/19 1,000 mcg capsule docusate sodium 100 mg capsule 100 mg PO DAILY #90 cap 06/10/19 11/02/19 flaxseed oil 1,000 mg capsule 1,000 mg PO DAILY #90 cap 06/10/19 11/02/19 lactulose 10 gram/15 mL oral 20 gm PO BID PRN #500 ml 07/02/19 11/02/19 solution pantoprazole 40 mg tablet,delayed 40 mg PO DAILY #90 tab-cap 07/02/19 11/14/19 release potassium chloride 20 mEq 20 meq PO DAILY #90 tab-cap 07/02/19 11/14/19 tablet,extended release sulfamethoxazole 400 1 tab PO three times/week #36 tab 07/02/19 11/14/19 mg-trimethoprim 80 mg tablet buspirone 5 mg tablet 15 mg PO BID tab 08/04/19 11/14/19 magnesium 250 mg tablet 125 mg PO DAILY tab 08/04/19 11/02/19 mirabegron 50 mg tablet,extended 50 mg PO DAILY #30 tab 09/22/19 11/14/19 release 24 hr lorazepam 1 mg tablet 1 mg PO QID #56 tab 10/05/19 11/14/19 quetiapine 100 mg tablet 100 mg PO HS tab 11/02/19 11/14/19 quetiapine 50 mg PO BID 11/14/19 11/14/19 Previous Rx's Medication Instructions Recorded levothyroxine 25 mcg tablet 12.5 mcg PO DAILY #45 tab-cap 03/19/19 topiramate 25 mg tablet 25 mg PO BID #60 tab 06/07/19 topiramate 50 mg tablet 50 mg PO BID #60 tab 06/07/19 calcium polycarbophil 625 mg tablet 625 mg PO DAILY #90 tab 06/10/19 cyanocobalamin (vitamin B-12) 1,000 mcg PO DAILY #90 cap 06/10/19 1,000 mcg capsule docusate sodium 100 mg capsule 100 mg PO DAILY #90 cap 06/10/19 flaxseed oil 1,000 mg capsule 1,000 mg PO DAILY #90 cap 06/10/19 lactulose 10 gram/15 mL oral 20 gm PO BID PRN #500 ml 07/02/19 solution pantoprazole 40 mg tablet,delayed 40 mg PO DAILY #90 tab-cap 07/02/19 release potassium chloride 20 mEq 20 meq PO DAILY #90 tab-cap 07/02/19 tablet,extended release sulfamethoxazole 400 1 tab PO three times/week #36 tab 07/02/19 mg-trimethoprim 80 mg tablet mirabegron 50 mg tablet,extended 50 mg PO DAILY #30 tab 09/22/19 release 24 hr lorazepam 1 mg tablet 1 mg PO QID #56 tab 10/05/19 Allergies Allergy/AdvReac Type Severity Reaction Status Date / Time morphine AdvReac Mild VOMITS Verified 11/02/19 08:37 General Stated Complaint: OD/Poison MARSHA: 2 Review of Systems <MERVAT Batres - Last Filed: 11/14/19 18:48> Constitutional Constitutional: Reports as per HPI, Denies chills, Reports fatigue, Denies fever(s), Denies frequent falls, Denies headache(s), Denies snoring and Denies weakness Eyes Eyes: Reports as per HPI, Denies blurry vision, Denies change in vision and Reports photophobia ENT Ears, Nose, Mouth, and Throat: Denies vertigo, Denies headache(s) and Denies neck pain Cardiovascular Cardiovascular: Reports as per HPI, Denies chest pain, Denies lightheadedness, Denies radiating jaw, neck or arm pain, Denies dyspnea and Denies dyspnea on exertion Respiratory Respiratory: Reports as per HPI, Denies chest congestion, Denies cough, Denies dyspnea, Denies dyspnea on exertion, Denies snoring, Denies stridor and Denies wheezing Gastrointestinal Gastrointestinal: Reports as per HPI, Denies abdominal pain, Denies change in bowel habits, Denies nausea and Denies vomiting Musculoskeletal Musculoskeletal: Reports as per HPI, Denies back pain, Denies myalgias, Denies muscle cramps, Denies neck pain and Denies numbness Integumentary/Breasts Skin/Breast: Reports as per HPI and Denies rash Neurologic Neurologic: Reports as per HPI, Denies abnormal movements, Reports abnormal speech (chronic slurred speech, more exagerated today), Denies behavioral changes, Denies confusion, Denies vertigo, Denies frequent falls, Denies headache(s), Denies focal weakness, Denies numbness, Denies sensory deficit and Denies weakness Psychiatric Psychiatric: Denies behavioral changes and Denies confusion Endocrine Endocrine: Reports fatigue Allergic/Immunologic Allergic/Immunologic: Denies wheezing PFSH <MERVAT Batres - Last Filed: 11/14/19 18:48> Medical History ASCVD (arteriosclerotic cardiovascular disease) Bipolar 2 disorder Breast cancer 1998-Right infiltrating ductal Dementia (Chronic) Diabetes resolved with weight loss Dyspnea Fibromyalgia GERD (gastroesophageal reflux disease) Glaucoma Hyperlipidemia Hyponatremia from psychiatric meds. on fluid restriction Hypothyroid Myocardial infarction (Chronic) Osteoarthritis Sciatica Vitamin B12 deficiency Surgical History BUNIONECTOMY LEFT FOOT-02/24/15 CARDIAC CATH LEFT, EF 70% History of bilateral oophorectomy (Acute) History of cataract surgery (Chronic) History of cataract surgery (Chronic) History of knee replacement (Chronic) History of knee replacement (Chronic) History of lumpectomy (Acute) Oophrectomy, Both L/S bilat prophylactic oopherectomy Social History Smoking/Tobacco Use Status: Current every day Tobacco Type: cigarettes Alcohol Intake: never Drug use: Never Substance use type: does not use Household members: other Details: SELF Pets and animals: Yes (cat) What type of physical activity do you participate in: none Mini/Presybeterian: Un[employer]ist Special mini needs: No Do you feel safe in your relationship?: No Exam <MERVAT Batres - Last Filed: 11/14/19 18:48> Const General: cooperative, healthy appearing, no acute distress, well developed, well groomed and other (appears fatigued, slurred speech) Nutritional Appearance: average body habitus and well nourished Orientation: alert, awake and oriented x3 HENMT Head: normal to inspection, no palpable skull fracture, normocephalic and atraumatic Ears: hearing grossly normal bilaterally, external ears normal and TM's normal bilaterally General nose exam: external nose normal Mouth: oral mucosae normal and moist mucous membranes Throat: posterior oropharynx normal Eyes General: appearance normal, both eyes and all related structures Alignment and Position: alignment normal Periorbital: periorbital findings normal Eyelids: eyelids normal Sclera: sclerae normal Cornea: corneas normal Pupils: PERRL EOM: EOM intact bilaterally and No nystagmus Neck Neck: normal visual inspection, full ROM, no lymphadenopathy and no meningeal signs Resp Effort & Inspection: normal respiratory effort, able to speak in complete sentences and no respiratory distress Auscultation: clear to auscultation bilaterally, no rales, no rhonchi and no wheezes Cardio Rate: regular rate Rhythm: regular rhythm Heart Sounds: S1 normal and S2 normal GI Inspection: normal to inspection and non-distended Palpation: soft, no hepatosplenomegaly, not firm, no guarding, not rigid and nontender Percussion: normal to percussion Auscultation: normal bowel sounds Back/Spine/Pelvis Cervical Spine: normal cervical lordosis and cervical ROM normal Skin General skin exam: no rashes or lesions noted Neuro General: alert, awake, oriented x3, tone normal, moves all extremities, CN's II- XI intact bilaterally and confused Cranial Nerves: PERRL, accommodation normal, EOM intact bilaterally, no nystagmus, facial strength normal, tongue midline, gag reflex normal, hearing normal, able to rotate head bilaterally, able to elevate shoulders bilaterally and no nystagmus Cognition: normal cognition Speech: abnormal speech slurred Gait: normal gait Motor: muscle tone normal throughout, strength 5/5 throughout, no pronator drift, no movement abnormalities noted and no fasciculations Sensory Exam: no sensory deficits noted Coordination: [id number] test normal and [id number] test normal Extrem General: normal to inspection, normal capillary refill, no pedal edema and no calf tenderness Psych Appearance: grossly normal and well kempt Mental Status: mental status grossly normal Course <MERVAT Batres - Last Filed: 11/14/19 18:48> Vital Signs Vital signs: Vital Signs Temperature 36 C L 11/14/19 12:11 Pulse 75 11/14/19 12:11 Respiratory Rate 18 11/14/19 12:11 Blood Pressure 130/80 11/14/19 12:11 Pulse Oximetry 98 11/14/19 12:11 Temperature 36 C L 11/14/19 12:11 Temperature Source Skin 11/14/19 12:11 Pulse 75 11/14/19 12:11 Respiratory Rate 18 11/14/19 12:11 Blood Pressure 130/80 11/14/19 12:11 Blood Pressure Position Sitting 11/14/19 12:11 Pulse Oximetry 98 11/14/19 12:11 Oxygen Delivery Method Room Air 11/14/19 12:11 Oxygen Flow Rate 0 11/14/19 12:11
[2019-11-14] MEDS: Normal Saline 1,000 ML 150 ML IV (12:37)
[2019-11-14 12:49] LABS: Abs Immature Grans 0.01 k/cumm (0.0-0.09); Absolute Basophil Count 0.01 k/cumm (0.0-0.2); Absolute Eosinophil Count 0.04 k/cumm (0.0-0.7); Absolute Lymphocyte Count 0.89 k/cumm (1.2-3.4); Absolute Monocyte Count 0.24 k/cumm (0.11-0.7); Absolute Neutrophil Count 1.99 k/cumm (1.2-6.7); Basophils % 0.3; Eosinophils % 1.3; HCT 35.2 % (36.0-46.0); HGB 11.6 g/dL (12.0-15.5); Immature Grans % 0.3 %; Mean Corpuscular Hemoglobin 31.1 pg (27.0-33.0); Mean Corpuscular Volume 94.4 fL (80-95); Mean Platelet Volume 8.6 fL (8.0-11.0); Monocytes % 7.5; Neutrophils % 62.6; Platelet Count 139 x1000/uL (130-400); RBC 3.73 m/cumm (4.00-5.20); RBC Distribution Width 13.1 % (11.7-14.6); White Blood Cell Count 3.18 k/cumm (4.4-10.8)
[2019-11-14 13:04] LABS: ALT 18 U/L (14-59); AST 14 U/L (15-37); Albumin 3.8 g/dL (3.4-5.0); Alkaline Phosphatase 63 U/L (46-116); Anion Gap 8.6 mmol/L (3-11); BUN 28 mg/dL (7-18); Bilirubin, Total 0.5 mg/dL (0.2-1.0); CO2 27.4 mmol/L (21.0-32.0); Calcium 8.3 mg/dL (8.5-10.1); Chloride 108 mmol/L (98-107); ETHANOL BLOOD < 3.0 mg/dL (<3); Estimated GFR 44.16 (mL/min/1.73m2); Glucose 99 mg/dL (74-106); Magnesium 2.1 mg/dL (1.8-2.4); Sodium 144 mmol/L (136-145); Total Protein 6.6 g/dL (6.4-8.2)
--- NOTE | 2019-11-14 13:05 | DI.CT_ITS ---
EXAM: CT HEAD - STROKE PROTOCOL CLINICAL HISTORY: slurred speech, primary concern for OD TECHNIQUE: The exam was performed according to the usual protocol. COMPARISON: HEAD WITHOUT CONTRAST from 06/06/2017 FINDINGS: The ventricles and sulci are consistent with the patient's age. There is no evidence of an acute terr itorial infarct. No intracranial hemorrhage is present. There is no acute midline shift or mass eff ect. The ventricles are intact. The basilar cisterns are patent. The calvarium is intact. The vis ualized paranasal sinuses are clear. IMPRESSION: No acute intracranial process.
[2019-11-14 13:16] LABS: Troponin I < 0.05 ng/Ml (<0.06)
--- NOTE | 2019-11-14 13:19 | DI.VRAD_ITS ---
PROCEDURE INFORMATION: Exam: CT Head Without Contrast Exam date and time: 11/14/2019 1:07 PM Age: 73 years old Clinical indication: Other: Slurred speach, ? od; Patient HX: Patient unable to answer personal HX. TECHNIQUE: Imaging protocol: Computed tomography of the head without contrast. Radiation optimization: All CT scans at this facility use at least one of these dose optimization techniques: automated exposure control; mA and/or kV adjustment per patient size (includes targeted exams where dose is matched to clinical indication); or iterative reconstruction. Other technique: STROKE PROTOCOL was implemented. COMPARISON: CT HEAD WITHOUT CONTRAST 06/06/2017 3:32 PM FINDINGS: Brain: No hemorrhage. Unremarkable white matter. No mass effect. Ventricles: Normal. No ventriculomegaly. Bones/joints: Unremarkable. No acute fracture. Sinuses: No acute sinusitis. Mastoid air cells: Unremarkable. Soft tissues: Unremarkable. IMPRESSION: No acute intracranial abnormality. ASSESSMENT: ASPECTS (Dora Stroke Program Early CT Score) is 10. Dictated and Authenticated by: Eber Donato MD. Ordering:OWEN Aguilar MD
[2019-11-14 13:32] LABS: Salicylate < 2.8 mg/dL (2.8-20.0)
[2019-11-14 13:43] LABS: Acetaminophen < 2 ug/mL (10-30)
--- NOTE | 2019-11-14 15:08 | NUR.NOTE ---
Nursing Note: Pt heard crying at nurses station, pt states that her IV hurts. IV fluids were stopped, IV flushed. Good blood return noted, no infiltration noted, flushed without difficulty or pain. Provider notified who gave verbal order to DC IV fluids and leave IV as IID. Lunch ordered per pt request and Provider approval.
--- NOTE | 2019-11-14 15:31 | PDOC.MHCN ---
Date of service: 11/14/19 Time of Service: 15:31 Mental Health Crisis Note Presenting Issue How did you arrive at the ED and why did you come: Derek was brought to the ER via her [facility] care providers after they suspected she had overdosed on her medications. Also of great concern today, Derek had turned on all 4 of the stove top burners as well as the broiler, and placed a paper plate with the plastic buchanan in her toaster oven which melted the buchanan and the burned plate was in the garbage. Derek fell going down the stairs to unlock the door for her care provider this am. Precipitating Factors Derek reported that she does not remember taking extra doses of medications. She stated that she has had thoughts of SI and has had thoughts of SI via overdose but this was not the case today. She adamantly denied HI. Derek is diagnosed with dementia. Disposition BEHAVIOR: Initially, Derek is agitated and emotionally dysregulated. She is crying and rambling in her speech which is often inaudible. It was important to have her caregivers here to relay information as they know it and have observed. Once she was able to wake her speech improved greatly. She ate as she was starving. EYE CONTACT: Eye contact was inconsistent depending on where we were in the assessment. Poor in the beginning and improving through out. MOOD: Derek's mood is dysregulated initially and then improved. She was tearful, agitated and then smiling and more engaged. AFFECT: Derek's affect fit the mood she was in through out the assessment as well. APPETITE: Her appitite is normal. SLEEP(trouble falling/staying asleep: Care providers reported that she has not slept well in the past couple of weeks and that since getting her new cats she has not been able ot sleep but she wants them to sleep with her. She also has been noted to have been napping more frequently during the day. Plan Derek does not meet criteria for a psychiatric placement at this time. Currently the ER provider is unsure of what she wants to do for today but has some time as Derek needs to be here for 6 hours. In the mean time a discussion was had with caregivers that the gas needs to be able to be shut off on her stove. Tonight they will remove the knobs. The toaster oven needs to be tossed as Derek melted plastic in it this am. Derek's medications need to be locked up and given to her by her staff. She needs to have a shift commander person 8p to 8a and her Primary [facility] care [facility] manager should be reconsidered as Derek does not get along with her and has not ever. I will share this information with her PMHNP tomorrow. Provisional Diagnosis Adjustment d/o unspecified Signature Clinician's Name/Title: Tamiko Salomon MS, [facility] Emergency Services Clinician
[2019-11-14 15:49] LABS: Troponin I < 0.05 ng/Ml (<0.06)
--- NOTE | 2019-11-14 18:49 | CMPROGNOTE_ITS ---
- If Service Date Differs Date of service: 11/14/19 Time of Service: 18:49 Care Management Progress Note CM meets with Fawn and two of her [facility] caregivers at the request of the ED provider. Fawn is sound asleep when KIM first enters her room, so a conversation is had with her caregivers. Fawn receives services through [facility] and while she is home alone at night, a caregiver is with her every day from 8:00 am to 8:00 pm. The caregivers report that Fawn has had a lot of stresses lately. Approximately 8 weeks ago, her cat, who had been with her for many years, had to be put down due to heart problems. Fawn has since gotten two more cats, but she was grief stricken over the loss of her longtime pet for several weeks. Fawn has also reportedly had some issues with one of her caregivers. This particular caregiver has not been at work for a while but is due to return to Fawn's home tomorrow morning. The caregivers also advise that Fawn's medication comes in blister packs and she has done really well with taking her medication as prescribed. This morning, however, she took what is believed to be 3 days worth of the medication. This morning, she also turned on all 4 burners and the broiler of her gas stove, in addition to placing a plate with plastic on it in the toaster over. When caregivers are asked if it is possible that Fawn is deliberately attempting to harm herself, they reply that Fawn did make a suicidal statement this past Friday. P: Fawn will be evaluated by the [facility] crisis screener. If she does not meet criteria for hospitalization, she will return home. Her caregivers agree to secure her medications for the night. They will additionally remove the knobs from the gas stove and will remove the toaster oven from the house. [facility] will put a halfway plan in place for Fawn tomorrow.
--- NOTE | 2019-11-14 18:51 | ED.GENADUL_ITS ---
Discharge Plan Disposition Patient Disposition: HOME Condition: Stable Discharge Details Chief Complaint: OD/Poison Clinical Impression: Overdose, Dementia Primary Care Provider: Valerio Granger ED Provider: Peri Soriano Home Meds and New Rx's Prescriptions: Continued melatonin 10 mg capsule 10 mg PO HS PRNRF: 0 clonidine HCl 0.1 mg tablet 0.1 mg PO BID RF: 0 magnesium 250 mg tablet 125 mg PO DAILY RF: 0 quetiapine [Seroquel] 100 mg tablet 100 mg PO HS RF: 0 buspirone 5 mg tablet 15 mg PO BID RF: 0 levothyroxine 25 mcg tablet 12.5 mcg PO DAILY Qty: 45 RF: 3 lactulose 10 gram/15 mL solution 20 gm PO BID PRN (Reason: constipation) Qty: 500 RF: 0 pantoprazole 40 mg tablet,delayed release (DR/EC) 40 mg PO DAILY Qty: 90 RF: 3 potassium chloride 20 mEq tablet extended release 20 meq PO DAILY Qty: 90 RF: 3 sulfamethoxazole-trimethoprim 400-80 mg tablet 1 tab PO three times/week Qty: 36 RF: 3 ibuprofen 200 MG capsule 200 mg PO am prn RF: 0 sertraline 50 mg tablet 50 mg PO DAILY RF: 0 topiramate 50 mg tablet 50 mg PO BID Qty: 60 RF: 5 topiramate 25 mg tablet 25 mg PO BID Qty: 60 RF: 5 calcium polycarbophil [Fiber-Tabs] 625 mg tablet 625 mg PO DAILY Qty: 90 RF: 3 cyanocobalamin (vitamin B-12) 1,000 mcg capsule 1,000 mcg PO DAILY Qty: 90 RF: 3 docusate sodium 100 mg capsule 100 mg PO DAILY Qty: 90 RF: 3 flaxseed oil 1,000 mg capsule 1,000 mg PO DAILY Qty: 90 RF: 3 Myrbetriq 50 mg tablet extended release 24 hr 50 mg PO DAILY Qty: 30 RF: 3 lorazepam 1 mg tablet 1 mg PO QID Qty: 56 RF: 0 quetiapine 50 mg Tablet 50 mg PO BID RF: 0 Discharge Instructions Instructions: Dementia (ED), Adult Overdose (ED) Additional Instructions: Please have someone administer your medications to you they do need to be locked up. The NU[employer]ER is to have a lock put on the stove. Follow up with primary care provider in 3-5 days. Return to ED sooner if any worsening or concerns. Please return to the ER for any increase sedation, chest pain, shortness of breath or any concerns. Please stay with someone if possible in order to be safe. Referrals: Valerio Granger [Primary Care Provider] - Discharge Data Discharge Date/Time-TO BE ENTERED AT DEPARTURE: 11/14/19 19:20 Medical Decision Making Patient signed out to me from MERVAT Angelo please see previous note regarding documentation. Patient up to the bathroom was unable to give urine sample at this time. She requests wanting to go home. Patient reports increased anxiety and states that she is too stressed to give a urine at this time. Vital signs are stable. She was cleared by poison control at this time I feel like it is within reason to discharge her with caregiver. There is plans to have somebody stay the night with her and lock up her medications for the night. 1920: Repeat EKG shows no ectopy rate 75 HI 152 QT QTc [address] Graff reviewed initial test. At this time medically patient is safe to go home. HPI General Mode of arrival: ambulatory . Date/Time Provider Initiated Documentation: 11/14/19 12:25 . Limitations to Documentation: altered mental status (patient has dementia at baseline) . Information obtained by: patient, family (home care provider) and RN notes reviewed . Related Data Home Medications Medication Instructions Recorded Confirmed ibuprofen 200 mg PO am prn tab-cap 05/06/18 11/02/19 sertraline 50 mg tablet 50 mg PO DAILY 11/11/18 11/14/19 levothyroxine 25 mcg tablet 12.5 mcg PO DAILY #45 tab-cap 03/19/19 11/14/19 melatonin 10 mg capsule 10 mg PO HS PRN 05/14/19 11/02/19 clonidine HCl 0.1 mg tablet 0.1 mg PO BID 06/02/19 11/14/19 topiramate 25 mg tablet 25 mg PO BID #60 tab 06/07/19 11/14/19 topiramate 50 mg tablet 50 mg PO BID #60 tab 06/07/19 11/14/19 calcium polycarbophil 625 mg tablet 625 mg PO DAILY #90 tab 06/10/19 11/02/19 cyanocobalamin (vitamin B-12) 1,000 mcg PO DAILY #90 cap 06/10/19 11/02/19 1,000 mcg capsule docusate sodium 100 mg capsule 100 mg PO DAILY #90 cap 06/10/19 11/02/19 flaxseed oil 1,000 mg capsule 1,000 mg PO DAILY #90 cap 06/10/19 11/02/19 lactulose 10 gram/15 mL oral 20 gm PO BID PRN #500 ml 07/02/19 11/02/19 solution pantoprazole 40 mg tablet,delayed 40 mg PO DAILY #90 tab-cap 07/02/19 11/14/19 release potassium chloride 20 mEq 20 meq PO DAILY #90 tab-cap 07/02/19 11/14/19 tablet,extended release sulfamethoxazole 400 1 tab PO three times/week #36 tab 07/02/19 11/14/19 mg-trimethoprim 80 mg tablet buspirone 5 mg tablet 15 mg PO BID tab 08/04/19 11/14/19 magnesium 250 mg tablet 125 mg PO DAILY tab 08/04/19 11/02/19 mirabegron 50 mg tablet,extended 50 mg PO DAILY #30 tab 09/22/19 11/14/19 release 24 hr lorazepam 1 mg tablet 1 mg PO QID #56 tab 10/05/19 11/14/19 quetiapine 100 mg tablet 100 mg PO HS tab 11/02/19 11/14/19 quetiapine 50 mg PO BID 11/14/19 11/14/19 Previous Rx's Medication Instructions Recorded levothyroxine 25 mcg tablet 12.5 mcg PO DAILY #45 tab-cap 03/19/19 topiramate 25 mg tablet 25 mg PO BID #60 tab 06/07/19 topiramate 50 mg tablet 50 mg PO BID #60 tab 06/07/19 calcium polycarbophil 625 mg tablet 625 mg PO DAILY #90 tab 06/10/19 cyanocobalamin (vitamin B-12) 1,000 mcg PO DAILY #90 cap 06/10/19 1,000 mcg capsule docusate sodium 100 mg capsule 100 mg PO DAILY #90 cap 06/10/19 flaxseed oil 1,000 mg capsule 1,000 mg PO DAILY #90 cap 06/10/19 lactulose 10 gram/15 mL oral 20 gm PO BID PRN #500 ml 07/02/19 solution pantoprazole 40 mg tablet,delayed 40 mg PO DAILY #90 tab-cap 07/02/19 release potassium chloride 20 mEq 20 meq PO DAILY #90 tab-cap 07/02/19 tablet,extended release sulfamethoxazole 400 1 tab PO three times/week #36 tab 07/02/19 mg-trimethoprim 80 mg tablet mirabegron 50 mg tablet,extended 50 mg PO DAILY #30 tab 09/22/19 release 24 hr lorazepam 1 mg tablet 1 mg PO QID #56 tab 10/05/19 Allergies Allergy/AdvReac Type Severity Reaction Status Date / Time morphine AdvReac Mild VOMITS Verified 11/02/19 08:37 General Stated Complaint: OD/Poison MARSHA: 2 PFSH Medical History ASCVD (arteriosclerotic cardiovascular disease) Bipolar 2 disorder Breast cancer 1998-Right infiltrating ductal Dementia (Chronic) Diabetes resolved with weight loss Dyspnea Fibromyalgia GERD (gastroesophageal reflux disease) Glaucoma Hyperlipidemia Hyponatremia from psychiatric meds. on fluid restriction Hypothyroid Myocardial infarction (Chronic) Osteoarthritis Sciatica Vitamin B12 deficiency Surgical History BUNIONECTOMY LEFT FOOT-02/24/15 CARDIAC CATH LEFT, EF 70% History of bilateral oophorectomy (Acute) History of cataract surgery (Chronic) History of cataract surgery (Chronic) History of knee replacement (Chronic) History of knee replacement (Chronic) History of lumpectomy (Acute) Oophrectomy, Both L/S bilat prophylactic oopherectomy Social History Smoking/Tobacco Use Status: Current every day Tobacco Type: cigarettes Alcohol Intake: never Drug use: Never Substance use type: does not use Household members: other Details: SELF Pets and animals: Yes (cat) What type of physical activity do you participate in: none 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 Special mini needs: No Do you feel safe in your relationship?: No Course Vital Signs Vital signs: Vital Signs Temperature 36 C L 11/14/19 12:11 Pulse 75 11/14/19 12:11 Respiratory Rate 18 11/14/19 12:11 Blood Pressure 130/80 11/14/19 12:11 Pulse Oximetry 98 11/14/19 12:11 Temperature 36 C L 11/14/19 12:11 Temperature Source Skin 02/02/20 12:11 Pulse 72 11/14/19 17:17 Pulse 74 11/14/19 17:17 Respiratory Rate 24 11/14/19 17:17 Respiratory Effort Non-Labored 11/14/19 13:00 Respiratory Depth Normal 11/14/19 13:00 Respiratory Pattern Normal 11/14/19 13:00 Blood Pressure 113/57 L 11/14/19 17:17 Blood Pressure Mean 70 11/14/19 17:17 Blood Pressure Position Sitting 11/14/19 12:11 Pulse Oximetry 99 11/14/19 13:13 Oxygen Delivery Method Room Air 11/14/19 12:11 Oxygen Flow Rate 0 11/14/19 12:11 Lab/Test Results Lab/Test Results: Laboratory Tests Range/Units 11/14/19 11/14/19 11/14/19 12:37 12:37 12:37 WBC (4.4-10.8) k/cumm 3.18 L RBC (4.00-5.20) m/cumm 3.73 L Hgb (12.0-15.5) g/dL 11.6 L Hct (36.0-46.0) % 35.2 L MCV (80-95) fL 94.4 MCH (27.0-33.0) pg 31.1 MCHC (32.0-36.0) g/dL 33.0 RDW (11.7-14.6) % 13.1 Plt Count (130-400) x1000/uL 139 MPV (8.0-11.0) fL 8.6 Immature Gran % % 0.3 Neutrophils % 62.6 Lymphocytes % 28.0 Monocytes % 7.5 Eosinophils % 1.3 Basophils % 0.3 Absolute Neutrophils (1.2-6.7) k/cumm 1.99 Absolute Lymphocytes (1.2-3.4) k/cumm 0.89 L Absolute Monocytes (0.11-0.7) k/cumm 0.24 Absolute Eosinophils (0.0-0.7) k/cumm 0.04 Absolute Basophils (0.0-0.2) k/cumm 0.01 Sodium (136-145) mmol/L 144 Potassium (3.5-5.1) mmol/L 4.0 Chloride (98-107) mmol/L 108 H Carbon Dioxide (21.0-32.0) mmol/L 27.4 Anion Gap (3-11) mmol/L 8.6 BUN (7-18) mg/dL 28 H Creatinine (0.55-1.02) mg/dL 1.20 H Estimated GFR/1.73 m2 (mL/min/1.73m2) 44.16 Glucose (74-106) mg/dL 99 Calcium (8.5-10.1) mg/dL 8.3 L Magnesium (1.8-2.4) mg/dL 2.1 Total Bilirubin (0.2-1.0) mg/dL 0.5 AST (15-37) U/L 14 L ALT (14-59) U/L 18 Alkaline Phosphatase (46-116) U/L 63 Troponin I (<0.06) ng/Ml < 0.05 Total Protein (6.4-8.2) g/dL 6.6 Albumin (3.4-5.0) g/dL 3.8 Salicylates (2.8-20.0) mg/dL < 2.8 Acetaminophen (10-30) ug/mL < 2 Ethyl Alcohol (<3) mg/dL < 3.0 Range/Units 11/14/19 15:30 WBC (4.4-10.8) k/cumm RBC (4.00-5.20) m/cumm Hgb (12.0-15.5) g/dL Hct (36.0-46.0) % MCV (80-95) fL MCH (27.0-33.0) pg MCHC (32.0-36.0) g/dL RDW (11.7-14.6) % Plt Count (130-400) x1000/uL MPV (8.0-11.0) fL Immature Gran % % Neutrophils % Lymphocytes % Monocytes % Eosinophils % Basophils % Absolute Neutrophils (1.2-6.7) k/cumm Absolute Lymphocytes (1.2-3.4) k/cumm Absolute Monocytes (0.11-0.7) k/cumm Absolute Eosinophils (0.0-0.7) k/cumm Absolute Basophils (0.0-0.2) k/cumm Sodium (136-145) mmol/L Potassium (3.5-5.1) mmol/L Chloride (98-107) mmol/L Carbon Dioxide (21.0-32.0) mmol/L Anion Gap (3-11) mmol/L BUN (7-18) mg/dL Creatinine (0.55-1.02) mg/dL Estimated GFR/1.73 m2 (mL/min/1.73m2) Glucose (74-106) mg/dL Calcium (8.5-10.1) mg/dL Magnesium (1.8-2.4) mg/dL Total Bilirubin (0.2-1.0) mg/dL AST (15-37) U/L ALT (14-59) U/L Alkaline Phosphatase (46-116) U/L Troponin I (<0.06) ng/Ml < 0.05 Total Protein (6.4-8.2) g/dL Albumin (3.4-5.0) g/dL Salicylates (2.8-20.0) mg/dL Acetaminophen (10-30) ug/mL Ethyl Alcohol (<3) mg/dL
== END 2019-11-14 19:20 | disposition home or self-care (01) ==
PROVIDERS: Physician Assistant; Emergency Provider Registered Nurse Emergency; PCP Family Medicine
DX: F03.90 Unspecified dementia, unspecified severity, without behavioral disturbance, psychotic disturbance, mood disturbance, and anxiety (principal); T50.911A Poisoning by multiple unspecified drugs, medicaments and biological substances, accidental (unintentional), initial encounter; R41.0 Disorientation, unspecified; R47.81 Slurred speech; R53.83 Other fatigue; I10 Essential (primary) hypertension; E11.9 Type 2 diabetes mellitus without complications
CPT/HCPCS: 36415; 36416; 80053; 80307; 82962; 93005; 96360; 96361; 99285; 70450; 80320; 80329; 81003; 83735; 84484; 85025; 93010

== ENCOUNTER 2020-02-16 14:57 | Emergency (ER) | payer MEDICARE, OTHER, SELFPAY ==
[2020-02-16 15:00] VITALS: BP 198/79; PULSE 88; RESP 28; TEMP 36.8; O2SAT 97
--- NOTE | 2020-02-16 15:15 | DI.CT_ITS ---
EXAM: CT ABDOMEN PELVIS W CLINICAL HISTORY: LUQ /L mid abd pain, r/o SBO, diverticulitis TECHNIQUE: Imaging Protocol: Axial computed tomography images with coronal and sagittal reformatted images were created and reviewed CONTRAST MATERIAL: Intravenous: Omnipaque 350 Contrast volume:70 mL Oral: Yes COMPARISON: CT RENAL COLIC WO CONTRAST from 02/03/2017 FINDINGS: ABDOMEN: Lung Bases: Dependent atelectatic changes are present Liver: Normal density. No measurable mass. Portal, Superior Mesenteric, and Splenic Veins: Unremarkable. Gallbladder and Biliary Tract: Cholelithiasis. No biliary ductal dilatation. Pancreas: Normal density, no abnormal calcifications or inflammatory process. Spleen: Normal. Adrenals: No masses seen. Kidneys: Normal size, contour and axis. No radiodense stones or obstructive uropathy. No masses seen. Abdominal Aorta: Abdominal portion non-dilated. Atherosclerosis. Bowel: No obstruction or bowel wall thickening. No evidence of acute appendicitis. There is a large amount of stool throughout the colon including a large amount in the rectum which is distended up to 7.8 cm. Peritoneal Cavity: No ascites, collection or mesenteric inflammatory response. Lymph Nodes: Within normal limits. Bones: Marked degenerative changes are present throughout the lumbar spine. There is a marked right convex scoliosis of the thoracolumbar spine. Degenerative changes are seen in the hips bilaterally w ith subchondral sclerosis and cyst formation present, right greater than left. Soft Tissues: Unremarkable. PELVIS: Bladder: Symmetric distention, no gross wall thickening. Reproductive Organs: Calcifications are present in the uterus consistent with uterine fibroids. Lymph Nodes: Within normal limits. Bones: Please see above. IMPRESSION: 1. Large fecal burden throughout the colon with a prominently distended rectum raising the question o f fecal impaction. No inflammatory process or obstruction is seen in the bowel. 2. Cholelithiasis. No evidence of biliary ductal dilatation. 3. Bibasilar atelectasis. RADIATION DOSE DELIVERED: Total DLP DATA REPOSITORY: All CT scans at this facility are submitted to the National Radiology Data Registry (NRDR) Dose Index Registry (DIR) with the [employer] ([employer]). RADIATION OPTIMIZATION: All CT scans at this facility use at least one of these dose optimization te chniques: automated exposure control; mA and/or kV adjustment per patient size (includes targeted exa ms where dose is matched to clinical indication); or iterative reconstruction.
[2020-02-16 15:24] LABS: Absolute Basophil Count 0.01 k/cumm (0.0-0.2); Absolute Eosinophil Count 0.03 k/cumm (0.0-0.7); Absolute Monocyte Count 0.27 k/cumm (0.11-0.7); Absolute Neutrophil Count 3.17 k/cumm (1.2-6.7); Basophils % 0.2; Eosinophils % 0.7; HCT 38.5 % (36.0-46.0); HGB 13.3 g/dL (12.0-15.5); Mean Corp. HGB Concentration 34.5 g/dL (32.0-36.0); Mean Corpuscular Hemoglobin 31.4 pg (27.0-33.0); Mean Corpuscular Volume 90.8 fL (80-95); Mean Platelet Volume 8.7 fL (8.0-11.0); Monocytes % 5.9; Neutrophils % 69.2; Platelet Count 178 x1000/uL (130-400); RBC 4.24 m/cumm (4.00-5.20); RBC Distribution Width 13.7 % (11.7-14.6); White Blood Cell Count 4.58 k/cumm (4.4-10.8)
--- NOTE | 2020-02-16 15:25 | ED.GENADUL_ITS ---
Discharge Plan Disposition Patient Disposition: HOME Condition: Stable Discharge Details Chief Complaint: Abd Prob Clinical Impression: Constipation, Abdominal pain Primary Care Provider: Valerio Granger ED Provider: Ana Richards Home Meds and New Rx's Prescriptions: Continued melatonin 10 mg capsule 10 mg PO HS PRNRF: 0 clonidine HCl 0.1 mg tablet 0.1 mg PO BID RF: 0 magnesium 250 mg tablet 125 mg PO DAILY RF: 0 quetiapine [Seroquel] 100 mg tablet 200 mg PO HS RF: 0 buspirone 5 mg tablet 15 mg PO BID RF: 0 levothyroxine 25 mcg tablet 12.5 mcg PO DAILY Qty: 45 RF: 3 lactulose 10 gram/15 mL solution 20 gm PO BID PRN (Reason: constipation) Qty: 500 RF: 0 pantoprazole 40 mg tablet,delayed release (DR/EC) 40 mg PO DAILY Qty: 90 RF: 3 potassium chloride 20 mEq tablet extended release 20 meq PO DAILY Qty: 90 RF: 3 sulfamethoxazole-trimethoprim 400-80 mg tablet 1 tab PO three times/week Qty: 36 RF: 3 ibuprofen 200 MG capsule 200 mg PO am prn RF: 0 sertraline 50 mg tablet 50 mg PO DAILY RF: 0 calcium polycarbophil [Fiber-Tabs] 625 mg tablet 625 mg PO DAILY Qty: 90 RF: 3 cyanocobalamin (vitamin B-12) 1,000 mcg capsule 1,000 mcg PO DAILY Qty: 90 RF: 3 flaxseed oil 1,000 mg capsule 1,000 mg PO DAILY Qty: 90 RF: 3 lorazepam 1 mg tablet 1 mg PO QID Qty: 56 RF: 0 topiramate 25 mg tablet 25 mg PO BID Qty: 60 RF: 11 topiramate 50 mg tablet 50 mg PO BID Qty: 60 RF: 11 docusate sodium 100 mg capsule 100 mg PO BID Qty: 180 RF: 3 quetiapine 50 mg Tablet 50 mg PO BID RF: 0 Discharge Instructions Instructions: Constipation (ED), Abdominal Pain (ED) Additional Instructions: Continue your stool softeners and MiraLAX. Be sure to drink plenty of water and eat a well-balanced diet including fruits and vegetables. You can also consider suppositories, magnesium citrate, or enemas [id number] for continued constipation. Follow-up with your primary care doctor in 1 week. Return to the emergency department with any worsening or new concerning symptoms. Discharge Data Discharge Physician: Ana Richards Medical Decision Making 1510 -- 74 yo F with a history of severe anxiety, bipolar disorder, multiple personality disorder, fibromyalgia, GERD, chronic constipation presents for constipation and left upper and mid abdominal pain for the past 6 days. Also complaining of headache which she gets with the symptoms usually in the past. Denies any fever or vomiting. Patient appears severely anxious. Abdomen is soft but tender with deep palpation in left upper and mid abdomen. Differential diagnosis includes indigestion, gas, GERD, peptic ulcer, gastritis, small bowel obstruction, diverticulitis, etc. Will place an IV, screening labs, urinalysis and CT abdomen and pelvis. We will give a dose of Pepcid, fluids and Tylenol IV and reassess. 1700 --labs and imaging reviewed. Normal white blood cell count. Troponin negative. TSH and lipase within normal limits. Urinalysis negative. CT notes huge fecal burden and rectum is prominently distended suggesting possibility of fecal impaction. No other acute abdominal findings. Patient reassessed -she appears much more comfortable and relaxed, states pain significantly improved. Attempted digital disimpaction at bedside with minimal results. An enema was performed by nurse at bedside and patient had significant large bowel movements and had significant relief and feels good to go home. She was advised on the importance of water and fiber intake. It was discussed that her multiple medications might be a factor in her constipation. She was advised to continue laxatives, stool softeners and if needed suppositories, magnesium citrate or enema. Advised to follow up with the primary care doctor for re-evaluation. Usual and customary return precautions given prior to discharge. Medical Records Medical records reviewed: Yes I reviewed the patient's medical records. Imaging Data Radiologic Study: Radiologist's impression: CT Abdomen And Pelvis With Contrast Exam date and time: 02/16/2020 3:21 PM Age: 74 years old Clinical indication: Abdominal pain; Other: Luq + left mid abd pain; Patient HX: Constipation x several months. R/O sbo vs. Diverticulitis TECHNIQUE: Imaging protocol: Computed tomography of the abdomen and pelvis with intravenous contrast. Radiation optimization: All CT scans at this facility use at least one of these dose optimization techniques: automated exposure control; mA and/or kV adjustment per patient size (includes targeted exams where dose is matched to clinical indication); or iterative reconstruction. Contrast material: OMNIPAQUE 350; Contrast volume: 70 ml; Contrast route: IV; Other contrast: Oral, Breeza + Omnipaque 350, 800 ml of Breeza, 50 ml of omnipaque 350; COMPARISON: CT ABD PELVIS WO CONTRAST 01/14/2016 1:44 PM FINDINGS: Heart: Heart is not enlarged. No significant pericardial fluid. Lungs: Moderate ground-glass opacity posterior lung bases bilaterally slightly worse on the right side. Liver: Normal. No mass. Gallbladder and bile ducts: 4 mm stone within the gallbladder. Gallbladder wall is minimally diffusely thickened. There is no pericholecystic fluid visible however. Pancreas: Normal. No ductal dilation. Spleen: Normal. No splenomegaly. Adrenals: Normal. No mass. Kidneys and ureters: Normal. No hydronephrosis. Stomach and bowel: There is marked the distention of the stomach with the contrast air level as well as a large amount of residual food material contrast is passed through of few nondilated loops of small bowel. The There is a huge amount of fecal burden throughout the colon. The rectum is distended to 7.8 cm. No definite inflammation visible around the colon although some areas are difficult to evaluate because the lack of intra-abdominal fat. Appendix: The appendix is not visualized but there are no secondary signs of appendicitis. Intraperitoneal space: Unremarkable. No free air. No significant fluid collection. Vasculature: Severe diffuse atherosclerosis. Prominent calcification of the left anterior descending coronary artery. Lymph nodes: Unremarkable. No enlarged lymph nodes. Bladder: Unremarkable as visualized. Reproductive: Uterus is deviated toward the left and appears to contain several of calcified uterine fibroids the largest measuring 1 cm. Bones/joints: Prominent subchondral cystic changes in the right acetabulum and to lesser extent left acetabulum Severe degenerative changes of the facet joints in the lower lumbar spine. Severe dextroconvex rotary scoliosis centered in the upper lumbar spine. There is severe multilevel discogenic disease throughout the entire lumbar spine. Soft tissues: Unremarkable. IMPRESSION: 1. Huge a fecal burden throughout the colon. The rectum is prominently distended suggesting the possibility of fecal impaction. There is no definite inflammation around the colon to suggest acute diverticulitis but the lack of intra-abdominal fat would make minimal inflammation very difficult to identify. 2. No evidence of small-bowel obstruction 3. Cholecystolithiasis. 4. Moderate bibasilar atelectasis. Lab Data Lab results reviewed: Yes I reviewed the patient's lab results. Labs: Laboratory Tests Range/Units 02/16/20 02/16/20 02/16/20 15:15 15:15 15:15 WBC (4.4-10.8) k/cumm 4.58 RBC (4.00-5.20) m/cumm 4.24 Hgb (12.0-15.5) g/dL 13.3 Hct (36.0-46.0) % 38.5 MCV (80-95) fL 90.8 MCH (27.0-33.0) pg 31.4 MCHC (32.0-36.0) g/dL 34.5 RDW (11.7-14.6) % 13.7 Plt Count (130-400) x1000/uL 178 MPV (8.0-11.0) fL 8.7 Immature Gran % % 0.0 Neutrophils % 69.2 Lymphocytes % 24.0 Monocytes % 5.9 Eosinophils % 0.7 Basophils % 0.2 Absolute Neutrophils (1.2-6.7) k/cumm 3.17 Absolute Lymphocytes (1.2-3.4) k/cumm 1.10 L Absolute Monocytes (0.11-0.7) k/cumm 0.27 Absolute Eosinophils (0.0-0.7) k/cumm 0.03 Absolute Basophils (0.0-0.2) k/cumm 0.01 Sodium (136-145) mmol/L 135 L Potassium (3.5-5.1) mmol/L 3.6 Chloride (98-107) mmol/L 103 Carbon Dioxide (21.0-32.0) mmol/L 23.9 Anion Gap (3-11) mmol/L 8.1 BUN (7-18) mg/dL 15 Creatinine (0.55-1.02) mg/dL 1.24 H Estimated GFR/1.73 m2 (mL/min/1.73m2) 42.40 Glucose (74-106) mg/dL 86 Calcium (8.5-10.1) mg/dL 9.2 Magnesium (1.8-2.4) mg/dL 2.1 Total Bilirubin (0.2-1.0) mg/dL 0.4 AST (15-37) U/L 15 ALT (14-59) U/L 20 Alkaline Phosphatase (46-116) U/L 52 Troponin I (<0.06) ng/Ml < 0.05 Total Protein (6.4-8.2) g/dL 7.4 Albumin (3.4-5.0) g/dL 4.0 Lipase (73-393) U/L 255 TSH (0.36-3.74) uIU/mL 1.26 Urine Color (Yellow) Urine Clarity (Clear) Urine pH (5-8) Ur Specific [place] (1.005-1.025) Urine Protein (Negative) mg/dL Urine Ketones (Negative) mg/dL Urine Blood (Negative) Urine Nitrite (Negative) Urine Bilirubin (Negative) Urine Urobilinogen (Up TO 0.2) EU/dL Ur Leukocyte Esterase (Negative) Urine Glucose (Negative) mg/dL Range/Units 02/16/20 16:26 WBC (4.4-10.8) k/cumm RBC (4.00-5.20) m/cumm Hgb (12.0-15.5) g/dL Hct (36.0-46.0) % MCV (80-95) fL MCH (27.0-33.0) pg MCHC (32.0-36.0) g/dL RDW (11.7-14.6) % Plt Count (130-400) x1000/uL MPV (8.0-11.0) fL Immature Gran % % Neutrophils % Lymphocytes % Monocytes % Eosinophils % Basophils % Absolute Neutrophils (1.2-6.7) k/cumm Absolute Lymphocytes (1.2-3.4) k/cumm Absolute Monocytes (0.11-0.7) k/cumm Absolute Eosinophils (0.0-0.7) k/cumm Absolute Basophils (0.0-0.2) k/cumm Sodium (136-145) mmol/L Potassium (3.5-5.1) mmol/L Chloride (98-107) mmol/L Carbon Dioxide (21.0-32.0) mmol/L Anion Gap (3-11) mmol/L BUN (7-18) mg/dL Creatinine (0.55-1.02) mg/dL Estimated GFR/1.73 m2 (mL/min/1.73m2) Glucose (74-106) mg/dL Calcium (8.5-10.1) mg/dL Magnesium (1.8-2.4) mg/dL Total Bilirubin (0.2-1.0) mg/dL AST (15-37) U/L ALT (14-59) U/L Alkaline Phosphatase (46-116) U/L Troponin I (<0.06) ng/Ml Total Protein (6.4-8.2) g/dL Albumin (3.4-5.0) g/dL Lipase (73-393) U/L TSH (0.36-3.74) uIU/mL Urine Color (Yellow) Yellow Urine Clarity (Clear) Clear Urine pH (5-8) 7.0 Ur Specific [place] (1.005-1.025) 1.015 Urine Protein (Negative) mg/dL Negative Urine Ketones (Negative) mg/dL Negative Urine Blood (Negative) Negative Urine Nitrite (Negative) Negative Urine Bilirubin (Negative) Negative Urine Urobilinogen (Up TO 0.2) EU/dL 0.2 Ur Leukocyte Esterase (Negative) Negative Urine Glucose (Negative) mg/dL Negative ECG Data Attestation: I personally reviewed and interpreted this ECG (s) as follows: Interpretation: Rate of 78, sinus, no acute ST elevation or depression. [place] 178. QTc 430. QRS 96. HPI General Mode of arrival: ambulatory . Date/Time Provider Initiated Documentation: 02/16/20 14:57 . Limitations to Documentation: no limitations . Information obtained by: patient . HPI Narrative: Patient is a 74-year-old female with a history of bipolar disorder, multiple personality disorder, anxiety, GERD, hypothyroidism, dementia, cardiovascular disease presents for constipation and left-sided abdominal pain for the past 6 days. She states the pain is constant, sharp, aching, stabbing and currently 7/10. She states she frequently has similar abdominal pain associated with constipation. She states she has a history of chronic constipation. She has been taking MiraLAX and prunes without relief. She drinks plenty of water and states she has a good appetite. Denies any fever, vomiting, chest pain, shortness of breath, urinary symptoms, recent travel or recent sick contacts. Related Data Home Medications Medication Instructions Recorded Confirmed ibuprofen 200 mg PO am prn tab-cap 05/06/18 12/02/19 sertraline 50 mg tablet 50 mg PO DAILY 11/11/18 12/02/19 levothyroxine 25 mcg tablet 12.5 mcg PO DAILY #45 tab-cap 03/19/19 12/02/19 melatonin 10 mg capsule 10 mg PO HS PRN 05/14/19 12/02/19 clonidine HCl 0.1 mg tablet 0.1 mg PO BID 06/02/19 12/02/19 calcium polycarbophil 625 mg tablet 625 mg PO DAILY #90 tab 06/10/19 12/02/19 cyanocobalamin (vitamin B-12) 1,000 mcg PO DAILY #90 cap 06/10/19 12/02/19 1,000 mcg capsule flaxseed oil 1,000 mg capsule 1,000 mg PO DAILY #90 cap 06/10/19 12/02/19 lactulose 10 gram/15 mL oral 20 gm PO BID PRN #500 ml 07/02/19 12/02/19 solution pantoprazole 40 mg tablet,delayed 40 mg PO DAILY #90 tab-cap 07/02/19 12/02/19 release potassium chloride 20 mEq 20 meq PO DAILY #90 tab-cap 07/02/19 12/02/19 tablet,extended release sulfamethoxazole 400 1 tab PO three times/week #36 tab 07/02/19 12/02/19 mg-trimethoprim 80 mg tablet buspirone 5 mg tablet 15 mg PO BID tab 08/04/19 12/02/19 magnesium 250 mg tablet 125 mg PO DAILY tab 08/04/19 12/02/19 lorazepam 1 mg tablet 1 mg PO QID #56 tab 10/05/19 12/02/19 quetiapine 50 mg PO BID 11/14/19 12/02/19 quetiapine 100 mg tablet 200 mg PO HS tab 11/17/19 12/02/19 topiramate 25 mg tablet 25 mg PO BID #60 tab 11/25/19 12/02/19 topiramate 50 mg tablet 50 mg PO BID #60 tab 11/25/19 12/02/19 docusate sodium 100 mg capsule 100 mg PO BID #180 cap 01/25/20 Previous Rx's Medication Instructions Recorded levothyroxine 25 mcg tablet 12.5 mcg PO DAILY #45 tab-cap 03/19/19 calcium polycarbophil 625 mg tablet 625 mg PO DAILY #90 tab 06/10/19 cyanocobalamin (vitamin B-12) 1,000 mcg PO DAILY #90 cap 06/10/19 1,000 mcg capsule flaxseed oil 1,000 mg capsule 1,000 mg PO DAILY #90 cap 06/10/19 lactulose 10 gram/15 mL oral 20 gm PO BID PRN #500 ml 07/02/19 solution pantoprazole 40 mg tablet,delayed 40 mg PO DAILY #90 tab-cap 07/02/19 release potassium chloride 20 mEq 20 meq PO DAILY #90 tab-cap 07/02/19 tablet,extended release sulfamethoxazole 400 1 tab PO three times/week #36 tab 07/02/19 mg-trimethoprim 80 mg tablet lorazepam 1 mg tablet 1 mg PO QID #56 tab 10/05/19 topiramate 25 mg tablet 25 mg PO BID #60 tab 11/25/19 topiramate 50 mg tablet 50 mg PO BID #60 tab 11/25/19 docusate sodium 100 mg capsule 100 mg PO BID #180 cap 01/25/20 Allergies Allergy/AdvReac Type Severity Reaction Status Date / Time morphine AdvReac Mild VOMITS Verified 12/02/19 09:02 General Stated Complaint: Abd Prob MARSHA: 2 Review of Systems All systems reviewed & are unremarkable except as noted in HPI and below Constitutional Constitutional: Reports as per HPI, Denies chills and Denies fever(s) Eyes Eyes: Denies blurry vision ENT Ears, Nose, Mouth, and Throat: Denies dizziness, Denies sore throat and Denies throat swelling Cardiovascular Cardiovascular: Denies chest pain and Denies dyspnea Respiratory Respiratory: Denies cough and Denies dyspnea Gastrointestinal Gastrointestinal: Reports abdominal pain, Denies diarrhea and Denies vomiting Genitourinary Genitourinary: Denies hematuria and Denies dysuria Musculoskeletal Musculoskeletal: Denies back pain and Denies numbness Integumentary/Breasts Skin/Breast: Denies lesions and Denies rash Neurologic Neurologic: Denies dizziness, Denies localized weakness and Denies numbness Allergic/Immunologic Allergic/Immunologic: Denies throat swelling PFSH Social History Smoking/Tobacco Use Status: Current every day Tobacco Type: cigarettes Alcohol Intake: never Drug use: Never Substance use type: does not use Household members: other Details: SELF Pets and animals: Yes (cat) What type of physical activity do you participate in: none 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 Special mini needs: No Do you feel safe at home: Yes Do you feel safe in your relationship?: Yes Exam Const General: cooperative and anxious (extremely) Orientation: alert, awake and oriented x3 HENMT Head: normal to inspection Face and sinus: normal facial exam Eyes General: appearance normal, both eyes and all related structures EOM: EOM intact bilaterally Neck Neck: normal visual inspection and No submandibular swelling Lymphatic: no lymphadenopathy noted Chest Chest: normal inspection of the chest and no tenderness Resp Effort & Inspection: normal respiratory effort and able to speak in complete sentences Auscultation: clear to auscultation bilaterally Cardio Rate: regular rate Rhythm: regular rhythm GI Inspection: normal to inspection Palpation: soft, not firm, not rigid and tender (L mid pain) in the epigastrum and in the LUQ Auscultation: hypoactive bowel sounds Back/Spine/Pelvis Thoracic/Lumbar Spine: thoracic and lumbar spine normal to inspection Pelvis: no pain with anterior-posterior compression Skin General skin exam: no rashes or lesions noted Neuro General: patient alert, patient awake and patient oriented x3 Cognition: normal cognition Speech: speech normal Motor: muscle tone normal throughout Sensory Exam: no sensory deficits noted Extrem General: normal to inspection, full ROM, capillary refill normal, no calf tenderness bilaterally and no edema Psych Appearance: grossly normal Mental Status: mental status grossly normal Speech and Movement: speech and movement normal Affect: normal affect Course Vital Signs Vital signs: Vital Signs Temperature 98.2 F 02/16/20 15:00 Pulse 88 02/16/20 15:00 Respiratory Rate 28 H 02/16/20 15:00 Blood Pressure 198/79 H 02/16/20 15:00 Pulse Oximetry 97 02/16/20 15:00 Temperature 98.2 F 02/16/20 15:00 Temperature Source Tympanic 02/16/20 15:00 Pulse 88 02/16/20 15:00 Respiratory Rate 28 H 02/16/20 15:00 Respiratory Effort 02/16/20 15:06 Blood Pressure 198/79 H 02/16/20 15:00 Blood Pressure Position Sitting 02/16/20 15:00 Pulse Oximetry 97 02/16/20 15:00 Oxygen Delivery Method Room Air 02/16/20 15:00 Oxygen Flow Rate 0 02/16/20 15:00 Pain Level 8 02/16/20 15:00
[2020-02-16] MEDS: Normal Saline 1,000 ML 1000 ML IV (15:34)
[2020-02-16] MEDS: ACETAMINOPHEN 1,000 MG/100 ML BTL 400 MG IVPB (15:34)
--- NOTE | 2020-02-16 15:34 | NUR.NOTE ---
pt currently drinking oral contrast. caregiver at bedside. pt tolerating well.
[2020-02-16 15:43] LABS: ALT 20 U/L (14-59); AST 15 U/L (15-37); Alkaline Phosphatase 52 U/L (46-116); Anion Gap 8.1 mmol/L (3-11); BUN 15 mg/dL (7-18); Bilirubin, Total 0.4 mg/dL (0.2-1.0); CO2 23.9 mmol/L (21.0-32.0); CREATININE 1.24 mg/dL (0.55-1.02); Calcium 9.2 mg/dL (8.5-10.1); Chloride 103 mmol/L (98-107); Glucose 86 mg/dL (74-106); Lipase 255 U/L (73-393); Magnesium 2.1 mg/dL (1.8-2.4); Potassium 3.6 mmol/L (3.5-5.1); Sodium 135 mmol/L (136-145); Total Protein 7.4 g/dL (6.4-8.2); Troponin I < 0.05 ng/Ml (<0.06)
[2020-02-16] MEDS: Famotidine 20 MG/2 ML VIAL IV (16:12)
[2020-02-16 16:28] LABS: TSH (W/Ref FT4) 1.26 uIU/mL (0.36-3.74)
[2020-02-16] MEDS: Omnipaque 350 MG/ML 100 ML BTL IJ (16:53)
[2020-02-16] MEDS: Normal Saline - Diluent 50 ML VIAL IV (16:54)
[2020-02-16] MEDS: Breeza Beverage 473 ML BTL PO ×2 (16:55→16:59)
[2020-02-16] MEDS: Omnipaque 350 MG/ML 50 ML BTL IJ (16:58)
[2020-02-16 17:01] LABS: Bilirubin Negative (Negative); Blood Negative (Negative); Clarity Clear (Clear); Glucose Negative (Negative); Ketones Negative (Negative); Leukocyte Esterase Negative (Negative); Nitrite Negative (Negative); Specific Gravity 1.015 (1.005-1.025); Urobilinogen 0.2 EU/dL (Up TO 0.2)
--- NOTE | 2020-02-16 17:10 | DI.VRAD_ITS ---
PROCEDURE INFORMATION: Exam: CT Abdomen And Pelvis With Contrast Exam date and time: 02/16/2020 3:21 PM Age: 74 years old Clinical indication: Abdominal pain; Other: Luq + left mid abd pain; Patient HX: Constipation x several months. R/O sbo vs. Diverticulitis TECHNIQUE: Imaging protocol: Computed tomography of the abdomen and pelvis with intravenous contrast. Radiation optimization: All CT scans at this facility use at least one of these dose optimization techniques: automated exposure control; mA and/or kV adjustment per patient size (includes targeted exams where dose is matched to clinical indication); or iterative reconstruction. Contrast material: OMNIPAQUE 350; Contrast volume: 70 ml; Contrast route: IV; Other contrast: Oral, Breeza + Omnipaque 350, 800 ml of Breeza, 50 ml of omnipaque 350; COMPARISON: CT ABD PELVIS WO CONTRAST 01/14/2016 1:44 PM FINDINGS: Heart: Heart is not enlarged. No significant pericardial fluid. Lungs: Moderate ground-glass opacity posterior lung bases bilaterally slightly worse on the right side. Liver: Normal. No mass. Gallbladder and bile ducts: 4 mm stone within the gallbladder. Gallbladder wall is minimally diffusely thickened. There is no pericholecystic fluid visible however. Pancreas: Normal. No ductal dilation. Spleen: Normal. No splenomegaly. Adrenals: Normal. No mass. Kidneys and ureters: Normal. No hydronephrosis. Stomach and bowel: There is marked the distention of the stomach with the contrast air level as well as a large amount of residual food material contrast is passed through of few nondilated loops of small bowel. The There is a huge amount of fecal burden throughout the colon. The rectum is distended to 7.8 cm. No definite inflammation visible around the colon although some areas are difficult to evaluate because the lack of intra-abdominal fat. Appendix: The appendix is not visualized but there are no secondary signs of appendicitis. Intraperitoneal space: Unremarkable. No free air. No significant fluid collection. Vasculature: Severe diffuse atherosclerosis. Prominent calcification of the left anterior descending coronary artery. Lymph nodes: Unremarkable. No enlarged lymph nodes. Bladder: Unremarkable as visualized. Reproductive: Uterus is deviated toward the left and appears to contain several of calcified uterine fibroids the largest measuring 1 cm. Bones/joints: Prominent subchondral cystic changes in the right acetabulum and to lesser extent left acetabulum Severe degenerative changes of the facet joints in the lower lumbar spine. Severe dextroconvex rotary scoliosis centered in the upper lumbar spine. There is severe multilevel discogenic disease throughout the entire lumbar spine. Soft tissues: Unremarkable. IMPRESSION: 1. Huge a fecal burden throughout the colon. The rectum is prominently distended suggesting the possibility of fecal impaction. There is no definite inflammation around the colon to suggest acute diverticulitis but the lack of intra-abdominal fat would make minimal inflammation very difficult to identify. 2. No evidence of small-bowel obstruction 3. Cholecystolithiasis. 4. Moderate bibasilar atelectasis. Dictated and Authenticated by: Daniel Suggs MD. Ordering:RYNE Perez MD
[2020-02-16 18:22] VITALS: BP 156/69; PULSE 60; RESP 16; TEMP 36.7; O2SAT 96
== END 2020-02-16 18:40 | disposition home or self-care (01) ==
PROVIDERS: Emergency Provider Physician Assistant; PCP Family Medicine
DX: K59.09 Other constipation (principal); R10.33 Periumbilical pain; R10.12 Left upper quadrant pain; R51 Headache; F41.9 Anxiety disorder, unspecified
CPT/HCPCS: 36415; 80053; 83690; 93005; 96361; 96374; 99285; 74177; 81003; 83735; 84443; 84484; 85025; 93010; 99284; J0131; J3490; Q9967

== ENCOUNTER → 2020-03-27 10:23 | Outpatient (BNVA) | payer MEDICARE, OTHER, SELFPAY | PROVIDERS: PCP Family Medicine; Referring Provider Family Medicine; Visit Provider Nurse Practitioner Gerontology | DX: N32.81 Overactive bladder (principal); N39.41 Urge incontinence | CPT/HCPCS: 99213 ==

== ENCOUNTER 2020-03-29 03:40 | Outpatient (CLI) | payer MEDICARE, OTHER, SELFPAY ==
[2020-03-29 12:37] LABS: HCT 40.9 % (36.0-46.0); HGB 13.8 g/dL (12.0-15.5); Mean Corp. HGB Concentration 33.7 g/dL (32.0-36.0); Mean Corpuscular Hemoglobin 31.4 pg (27.0-33.0); Mean Platelet Volume 9.3 fL (8.0-11.0); Platelet Count 142 x1000/uL (130-400); RBC Distribution Width 13.3 % (11.7-14.6); White Blood Cell Count 4.04 k/cumm (4.4-10.8)
[2020-03-29 13:25] LABS: Estimated GFR 44.04 (mL/min/1.73m2); TSH (W/Ref FT4) 1.59 uIU/mL (0.36-3.74)
== END 2020-03-29 04:00 ==
PROVIDERS: PCP Family Medicine; Visit Provider Family Medicine
DX: R35.0 Frequency of micturition (principal); F31.9 Bipolar disorder, unspecified; E03.9 Hypothyroidism, unspecified
CPT/HCPCS: 36415; 85027; 82565; 84443

== ENCOUNTER → 2020-04-13 14:01 | Outpatient (BNVA) | payer MEDICARE, OTHER, SELFPAY | PROVIDERS: PCP Family Medicine; Referring Provider Family Medicine; Visit Provider Nurse Practitioner Adult Health | DX: G43.001 Migraine without aura, not intractable, with status migrainosus (principal) | CPT/HCPCS: 99214 ==

== ENCOUNTER → 2020-04-26 13:23 | Outpatient (BNVA) | payer MEDICARE, OTHER, SELFPAY | PROVIDERS: PCP Family Medicine; Referring Provider Family Medicine; Visit Provider Nurse Practitioner Adult Health | DX: R51 Headache (principal) | CPT/HCPCS: 64405 ==

== ENCOUNTER 2020-05-08 10:14 | Emergency (ER) | payer MEDICARE, OTHER, SELFPAY ==
[2020-05-08 10:20] VITALS: BP 143/75; PULSE 76; RESP 18; TEMP 36.6; O2SAT 96
[2020-05-08 10:34] LABS: Bilirubin Negative (Negative); Blood Negative (Negative); Clarity Clear (Clear); Glucose Negative (Negative); Ketones Negative (Negative); Leukocyte Esterase Negative (Negative); Nitrite Negative (Negative); Specific Gravity 1.015 (1.005-1.025); Urobilinogen 0.2 EU/dL (Up TO 0.2)
--- NOTE | 2020-05-08 11:24 | ED.GENADUL_ITS ---
Discharge Plan Disposition Patient Disposition: HOME Condition: Good Discharge Details Chief Complaint: Urinary Clinical Impression: Dysuria-frequency syndrome Primary Care Provider: Valerio Granger ED Provider: Lisa Martinez Home Meds and New Rx's Prescriptions: New phenazopyridine [Pyridium] 100 mg tablet 100 mg PO TID PRN (Reason: pain) Qty: 6 RF: 0 Continued melatonin 10 mg capsule 10 mg PO HS PRNRF: 0 clonidine HCl 0.1 mg tablet 0.1 mg PO BID RF: 0 quetiapine [Seroquel] 100 mg tablet 200 mg PO HS RF: 0 pantoprazole 40 mg tablet,delayed release (DR/EC) 40 mg PO DAILY Qty: 90 RF: 3 potassium chloride 20 mEq tablet extended release 20 meq PO DAILY Qty: 90 RF: 3 sulfamethoxazole-trimethoprim 400-80 mg tablet 1 tab PO three times/week Qty: 36 RF: 3 buspirone 5 mg tablet 15 mg PO BID RF: 0 lactulose 10 gram/15 mL solution 20 gm PO BID PRN (Reason: constipation) Qty: 500 RF: 0 ibuprofen 200 MG capsule 200 mg PO am prn RF: 0 sertraline 50 mg tablet 50 mg PO DAILY RF: 0 calcium polycarbophil [Fiber-Tabs] 625 mg tablet 625 mg PO DAILY Qty: 90 RF: 3 cyanocobalamin (vitamin B-12) 1,000 mcg capsule 1,000 mcg PO DAILY Qty: 90 RF: 3 flaxseed oil 1,000 mg capsule 1,000 mg PO DAILY Qty: 90 RF: 3 lorazepam 1 mg tablet 1 mg PO QID Qty: 56 RF: 0 topiramate 25 mg tablet 25 mg PO BID Qty: 60 RF: 11 topiramate 50 mg tablet 50 mg PO BID Qty: 60 RF: 11 docusate sodium 100 mg capsule 100 mg PO BID Qty: 180 RF: 3 levothyroxine 25 mcg tablet 12.5 mcg PO DAILY Qty: 45 RF: 3 magnesium 250 mg tablet 250 mg PO DAILY Qty: 90 RF: 3 Myrbetriq 50 mg tablet extended release 24 hr 50 mg PO DAILY Qty: 90 RF: 3 quetiapine 50 mg Tablet 50 mg PO BID RF: 0 Discharge Instructions Instructions: Dysuria (ED) Additional Instructions: Drink plenty of fluids to stay well-hydrated 6 to 8 glasses of water daily Use Pyridium as needed for burning while urinating. It will turn your urine bright orange Follow-up with Dr. Dolan outpatient Referrals: Marek Dolan MD [ [facility]YSICIAN] - Medical Decision Making Patient presents with urinary frequency and dysuria which is typical of her with urinary tract infection which she has history of. She has had no fevers able to tolerate p.o. denies bowel issues. Urinalysis shows no evidence of UTI. A bladder scan shows no evidence of urinary retention with less than 30 cc noted after voiding. At this point will prescribe Pyridium and refer to urology for further recommendations and evaluation Medical Records Medical records reviewed: Yes I reviewed the patient's medical records. Lab Data Lab results reviewed: Yes I reviewed the patient's lab results. Lab results narrative: Laboratory Results - last 24 hr 05/08/20 10:20 Urine Color Yellow Urine Clarity Clear Urine pH 7.0 Ur Specific Selby 1.015 Urine Protein Negative Urine Ketones Negative Urine Blood Negative Urine Nitrite Negative Urine Bilirubin Negative Urine Urobilinogen 0.2 Ur Leukocyte Esterase Negative Urine Glucose Negative HPI General Date/Time Provider Initiated Documentation: 05/08/20 10:24 . Limitations to Documentation: no limitations . Information obtained by: patient . HPI Narrative: This is a 74-year-old patient well-known to the emergency department who comes in with urinary frequency and dysuria. She has a longstanding history of urge incontinence overreactive bladder urine frequency. She denies any flank pain nausea vomiting constipation hematuria or fevers. Related Data Home Medications Medication Instructions Recorded Confirmed ibuprofen 200 mg PO am prn tab-cap 05/06/18 05/08/20 sertraline 50 mg tablet 50 mg PO DAILY 11/11/18 05/08/20 melatonin 10 mg capsule 10 mg PO HS PRN 05/14/19 05/08/20 clonidine HCl 0.1 mg tablet 0.1 mg PO BID 06/02/19 05/08/20 calcium polycarbophil 625 mg tablet 625 mg PO DAILY #90 tab 06/10/19 05/08/20 cyanocobalamin (vitamin B-12) 1,000 mcg PO DAILY #90 cap 06/10/19 05/08/20 1,000 mcg capsule flaxseed oil 1,000 mg capsule 1,000 mg PO DAILY #90 cap 06/10/19 05/08/20 lactulose 10 gram/15 mL oral 20 gm PO BID PRN #500 ml 07/02/19 05/08/20 solution buspirone 5 mg tablet 15 mg PO BID tab 08/04/19 05/08/20 lorazepam 1 mg tablet 1 mg PO QID #56 tab 10/05/19 05/08/20 quetiapine 50 mg PO BID 11/14/19 05/08/20 quetiapine 100 mg tablet 200 mg PO HS tab 11/17/19 05/08/20 topiramate 25 mg tablet 25 mg PO BID #60 tab 11/25/19 05/08/20 topiramate 50 mg tablet 50 mg PO BID #60 tab 11/25/19 05/08/20 docusate sodium 100 mg capsule 100 mg PO BID #180 cap 01/25/20 05/08/20 levothyroxine 25 mcg tablet 12.5 mcg PO DAILY #45 tab-cap 03/17/20 05/08/20 magnesium 250 mg tablet 250 mg PO DAILY #90 tab 04/11/20 05/08/20 pantoprazole 40 mg tablet,delayed 40 mg PO DAILY #90 tab-cap 04/11/20 05/08/20 release potassium chloride 20 mEq 20 meq PO DAILY #90 tab-cap 04/11/20 05/08/20 tablet,extended release sulfamethoxazole 400 1 tab PO three times/week #36 tab 04/11/20 05/08/20 mg-trimethoprim 80 mg tablet mirabegron 50 mg tablet,extended 50 mg PO DAILY #90 tab 04/27/20 05/08/20 release 24 hr phenazopyridine [Pyridium] 100 mg PO TID PRN #6 tab 05/08/20 Previous Rx's Medication Instructions Recorded calcium polycarbophil 625 mg tablet 625 mg PO DAILY #90 tab 06/10/19 cyanocobalamin (vitamin B-12) 1,000 mcg PO DAILY #90 cap 06/10/19 1,000 mcg capsule flaxseed oil 1,000 mg capsule 1,000 mg PO DAILY #90 cap 06/10/19 lactulose 10 gram/15 mL oral 20 gm PO BID PRN #500 ml 07/02/19 solution lorazepam 1 mg tablet 1 mg PO QID #56 tab 10/05/19 topiramate 25 mg tablet 25 mg PO BID #60 tab 11/25/19 topiramate 50 mg tablet 50 mg PO BID #60 tab 11/25/19 docusate sodium 100 mg capsule 100 mg PO BID #180 cap 01/25/20 levothyroxine 25 mcg tablet 12.5 mcg PO DAILY #45 tab-cap 03/17/20 magnesium 250 mg tablet 250 mg PO DAILY #90 tab 04/11/20 pantoprazole 40 mg tablet,delayed 40 mg PO DAILY #90 tab-cap 04/11/20 release potassium chloride 20 mEq 20 meq PO DAILY #90 tab-cap 04/11/20 tablet,extended release sulfamethoxazole 400 1 tab PO three times/week #36 tab 04/11/20 mg-trimethoprim 80 mg tablet mirabegron 50 mg tablet,extended 50 mg PO DAILY #90 tab 04/27/20 release 24 hr phenazopyridine [Pyridium] 100 mg PO TID PRN #6 tab 05/08/20 Allergies Allergy/AdvReac Type Severity Reaction Status Date / Time morphine AdvReac Mild VOMITS Verified 05/08/20 10:26 General Stated Complaint: Urinary MARSHA: 4 Review of Systems Constitutional Constitutional: Denies fever(s) Genitourinary Genitourinary: Denies hematuria, Reports dysuria, Reports urinary incontinence, Reports urinary urgency, Denies vaginal discharge and Denies vaginal pruritus Integumentary/Breasts Skin/Breast: Denies lesions, Denies new lesions and Denies rash Hematologic/Lymphatic Hematologic/Lymphatic: Denies easy bleeding PFSH Social History Smoking/Tobacco Use Status: Current every day Tobacco Type: cigarettes Alcohol Intake: never Drug use: Never Substance use type: does not use Household members: other Details: SELF Pets and animals: Yes (cat) What type of physical activity do you participate in: none 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 Special mini needs: No Do you feel safe at home: Yes Do you feel safe in your relationship?: Yes Exam Const General: cooperative, healthy appearing and comfortable Orientation: alert, awake and oriented x3 GI Inspection: normal to inspection Palpation: soft Auscultation: normal bowel sounds General: bladder normal to palpation, No CVA tenderness and other (Urine clear) Bimanual Exam- Vagina & Uterus: bladder normal to palpation Course Vital Signs Vital signs: Vital Signs Temperature 36.6 C 05/08/20 10:20 Pulse 76 05/08/20 10:20 Respiratory Rate 18 05/08/20 10:20 Blood Pressure 143/75 H 05/08/20 10:20 Pulse Oximetry 96 05/08/20 10:20 Temperature 36.6 C 05/08/20 10:20 Temperature Source Skin 05/08/20 10:20 Pulse 76 05/08/20 10:20 Respiratory Rate 18 05/08/20 10:20 Respiratory Effort Non-Labored 05/08/20 10:46 Blood Pressure 143/75 H 05/08/20 10:20 Blood Pressure Position Sitting 05/08/20 10:20 Pulse Oximetry 96 05/08/20 10:20 Oxygen Delivery Method Room Air 05/08/20 10:20 Oxygen Flow Rate 0 05/08/20 10:20 Pain Level 4 05/08/20 10:46 Lab/Test Results Lab/Test Results: Laboratory Tests Range/Units 05/08/20 10:20 Urine Color (Yellow) Yellow Urine Clarity (Clear) Clear Urine pH (5-8) 7.0 Ur Specific [place] (1.005-1.025) 1.015 Urine Protein (Negative) mg/dL Negative Urine Ketones (Negative) mg/dL Negative Urine Blood (Negative) Negative Urine Nitrite (Negative) Negative Urine Bilirubin (Negative) Negative Urine Urobilinogen (Up TO 0.2) EU/dL 0.2 Ur Leukocyte Esterase (Negative) Negative Urine Glucose (Negative) mg/dL Negative
== END 2020-05-08 11:41 | disposition home or self-care (01) ==
PROVIDERS: Emergency Provider Nurse Practitioner Acute Care; PCP Family Medicine
DX: N34.3 Urethral syndrome, unspecified (principal); Z87.440 Personal history of urinary (tract) infections; I10 Essential (primary) hypertension
CPT/HCPCS: 99283; 81003

== ENCOUNTER → 2020-05-10 12:59 | Outpatient (BNVA) | payer MEDICARE, OTHER, SELFPAY | PROVIDERS: PCP Family Medicine; Referring Provider Family Medicine; Visit Provider Nurse Practitioner Adult Health | DX: R51 Headache (principal); E11.9 Type 2 diabetes mellitus without complications | CPT/HCPCS: 64405 ==

== ENCOUNTER → 2020-05-15 09:57 | Outpatient (BNVA) | payer MEDICARE, OTHER, SELFPAY | PROVIDERS: PCP Family Medicine; Referring Provider Family Medicine; Visit Provider Nurse Practitioner Gerontology | DX: N39.0 Urinary tract infection, site not specified; N32.81 Overactive bladder; E11.9 Type 2 diabetes mellitus without complications | CPT/HCPCS: 81003; 99213 ==

== ENCOUNTER 2020-05-15 14:15 | Outpatient (REF) | payer MEDICARE, OTHER, SELFPAY | END 2020-05-15 14:35 | LOC: LBN 14:15 | PROVIDERS: PCP Family Medicine; Visit Provider Nurse Practitioner Gerontology | DX: N39.0 Urinary tract infection, site not specified (principal) | CPT/HCPCS: 87086 ==

== ENCOUNTER → 2020-05-19 13:32 | Outpatient (BNVA) | payer MEDICARE, OTHER, SELFPAY | PROVIDERS: PCP Family Medicine; Referring Provider Family Medicine; Visit Provider Urology | DX: N32.81 Overactive bladder (principal); N34.3 Urethral syndrome, unspecified | CPT/HCPCS: 81003; 99213 ==

== ENCOUNTER → 2020-05-24 11:13 | Outpatient (BNVA) | payer MEDICARE, OTHER, SELFPAY | PROVIDERS: PCP Family Medicine; Referring Provider Family Medicine; Visit Provider Nurse Practitioner Adult Health | DX: R51 Headache (principal) | CPT/HCPCS: 64405 ==

== ENCOUNTER → 2020-06-08 13:25 | Outpatient (BNVA) | payer MEDICARE, OTHER, SELFPAY | PROVIDERS: PCP Family Medicine; Referring Provider Family Medicine; Visit Provider Nurse Practitioner Adult Health | DX: R51 Headache (principal); E11.9 Type 2 diabetes mellitus without complications | CPT/HCPCS: 64405 ==

== ENCOUNTER → 2020-06-22 10:39 | Outpatient (BNVA) | payer MEDICARE, OTHER, SELFPAY | PROVIDERS: PCP Family Medicine; Referring Provider Family Medicine; Visit Provider Nurse Practitioner Adult Health | DX: R51 Headache (principal) | CPT/HCPCS: 64405 ==

== ENCOUNTER 2020-07-06 08:13 | Outpatient (CLI) | payer MEDICARE, OTHER, SELFPAY ==
--- NOTE | 2020-07-06 11:37 | DI.RAD_ITS ---
EXAM: 2D digital imaging was performed. CLINICAL HISTORY: CONSTIPATION,k59.00. COMPARISON: No exams were available for comparison TECHNIQUE: Supine and uprightSupine and Lateral views of the abdomen was performed. FINDINGS: LUNG BASES: Clear. BOWEL GAS PATTERN: Nondistended. There is a small amount of retained stool. FREE AIR: None. CALCIFICATIONS: No radiopaque calcifications. OSSEOUS STRUCTURES: Normal for age. OTHER FINDINGS: None. There is a prominent right convex thoracolumbar scoliosis. Moderate degenerati ve changes are seen in the spine. Moderate degenerative changes are seen in the right hip. IMPRESSION: No evidence of an acute abdomen. Small amount of retained stool. DATA REPOSITORY: RADIATION DOSE DELIVERED:
== END 2020-07-06 08:33 ==
PROVIDERS: PCP Family Medicine; Visit Provider Family Medicine
DX: K59.00 Constipation, unspecified (principal)
CPT/HCPCS: 74019

== ENCOUNTER 2020-09-27 19:41 | Outpatient (REF) | payer MEDICARE, OTHER, SELFPAY | END 2020-09-27 20:01 | LOC: LBN 19:41 | PROVIDERS: PCP Family Medicine; Visit Provider Nurse Practitioner Family | DX: N76.0 Acute vaginitis (principal); N39.0 Urinary tract infection, site not specified | CPT/HCPCS: 87086; 87480; 87510; 87660 ==

== ENCOUNTER 2020-10-02 21:10 | Outpatient (REF) | payer MEDICARE, OTHER, SELFPAY | END 2020-10-02 21:30 | LOC: LBN 21:10 | PROVIDERS: PCP Family Medicine; Visit Provider Physician Assistant | DX: N39.0 Urinary tract infection, site not specified (principal) | CPT/HCPCS: 87086 ==

== ENCOUNTER → 2020-10-26 10:56 | Outpatient (BNVA) | payer MEDICARE, OTHER, SELFPAY | PROVIDERS: PCP Family Medicine; Referring Provider Family Medicine; Visit Provider Nurse Practitioner Gerontology | DX: R30.0 Dysuria (principal); N39.41 Urge incontinence | CPT/HCPCS: 81003; 99213 ==

== ENCOUNTER 2020-10-30 00:46 | Outpatient (CLI) | payer MEDICARE, OTHER, SELFPAY ==
--- NOTE | 2020-10-30 10:04 | DI.CTLCSR_ITS ---
EXAM: CT CHEST LUNG CANCER SCREEN CLINICAL HISTORY: Screening for lung cancer,CURRENT SMOKER, F17.210 TECHNIQUE: Imaging Protocol: Axial computed tomography images with coronal and sagittal reformatted images were created and reviewed COMPARISON: CT CT CHEST LUNG CANCER SCREEN from 02/23/2019 FINDINGS: Tracheobronchial tree: Patent where visualized. Pulmonary parenchyma: No consolidation or dominant measurable mass. Centrilobular emphysematous garcia es are present. Calcified granuloma are seen in the lungs. Lung Nodules: There is a less than 3 mm stable pulmonary nodule in the left upper lobe. No new pulmo nary nodules are present. Mediastinum and Vero: No dominant adenopathy or fluid collection. Pleura: No effusion or pneumothorax. Heart: The heart is not dilated. Marked coronary artery calcification or stents are present. No maynor cardial effusion. Aorta: Thoracic aorta non-dilated.Atherosclerosis. Upper abdomen: Unremarkable. Soft Tissues: Unremarkable. Bones: Degenerative changes. Right convex thoracolumbar scoliosis. IMPRESSION: Stable pulmonary nodules. Lung RADS Cat 2 - Benign Appearance / Behavior: Nodules with a very low likelihood of becoming a clin ically active cancer due to size or lack of growth Lung-RADS 1.0 CATEGORIES: Category 0 - Prior chest CT exam(s) being located for comparison. Category 1 - Annual screening in 12 months. No nodules or definitely benign nodules. Category 2 - Annual screening in 12 months. Benign appearance. Nodules with low likelihood of becomin g active cancer. Category 3 - 6-month follow-up. Probably benign. Short-term follow-up suggested. Nodules with low lik elihood of becoming active cancer. Category 4A - 3-month follow-up and CT/PET if >8 mm in size. Suspicious finding. Findings which requi re additional testing. Category 4B - Findings which require additional testing and tissue sampling. Suspicious finding. C Added to Any of the Above - History of prior lung cancer screening. S Added to Any of the Above - Significant unexpected other finding. RADIATION DOSE DELIVERED: 73.79mGy.cm Total DLP 73.79mGy.cm Total DLP DATA REPOSITORY: All CT scans at this facility are submitted to the National Radiology Data Registry (NRDR) Dose Index Registry (DIR) with the [employer] (A[employer]). RADIATION OPTIMIZATION: All CT scans at this facility use at least one of these dose optimization te chniques: automated exposure control; mA and/or kV adjustment per patient size (includes targeted exa ms where dose is matched to clinical indication); or iterative reconstruction.
== END 2020-10-30 01:06 ==
PROVIDERS: PCP Family Medicine; Visit Provider Family Medicine
DX: F17.210 Nicotine dependence, cigarettes, uncomplicated (principal); R91.8 Other nonspecific abnormal finding of lung field
CPT/HCPCS: 71271

== ENCOUNTER → 2020-11-06 11:53 | Outpatient (BNVA) | payer MEDICARE, OTHER, SELFPAY | PROVIDERS: PCP Family Medicine; Referring Provider Family Medicine; Visit Provider Urology | DX: R35.0 Frequency of micturition (principal); R10.2 Pelvic and perineal pain; Z87.440 Personal history of urinary (tract) infections | CPT/HCPCS: 51700; 99213 ==

== ENCOUNTER 2020-11-30 18:52 | Outpatient (CLI) | payer MEDICARE, OTHER, SELFPAY ==
--- NOTE | 2020-11-30 15:47 | DI.RAD_ITS ---
EXAM: XR ABDOMEN FLAT UPRIGHT CLINICAL HISTORY: rule out constipation K59.09 CHRONIC CONSTIPATION. TECHNIQUE: 2D digital imaging was performed. COMPARISON: CR XR ABDOMEN FLAT UPRIGHT from 07/06/2020 FINDINGS: Supine and upright views the abdomen compared to June 2020 Again noted is and scoliosis.. The heart size is normal. Lung bases are clear. Cardiac loop detect or is noted. There are multiple air-filled bowel loops in the abdomen and pelvis.. No obvious free air. No true bowel obstruction. Calcification left side of the pelvis noted, possibly gynecologic s uch as calcified fibroid. Moderate Reardon degenerative changes are noted in the right hip. IMPRESSION: Highly is pattern. No obvious free air. Other findings as above. Scoliosis.ileus DATA REPOSITORY: RADIATION DOSE DELIVERED:
== END 2020-11-30 19:12 ==
PROVIDERS: PCP Family Medicine; Visit Provider Physician Assistant
DX: K59.09 Other constipation (principal)
CPT/HCPCS: 74019

== ENCOUNTER 2020-12-01 12:25 | Outpatient (REF) | payer MEDICARE, OTHER, SELFPAY ==
[2020-12-01 14:27] LABS: Clarity Clear (Clear); Leukocyte Esterase Color Interference (Negative)
[2020-12-01 14:28] LABS: Bilirubin Color Interference (Negative); Blood Color Interference (Negative); Glucose Color Interference mg/dL (Negative); Ketones Color Interference mg/dL (Negative); Nitrite Color Interference (Negative); Urobilinogen Color Interference EU/dL (Up TO 0.2)
[2020-12-01 14:29] LABS: Bacteria Negative HPF (Negative); Crystals Negative HPF (Negative); Epithelial Cells Rare HPF (Negative); Other Cells Few Transitional (Negative); WBC 0-2 HPF (0-5)
[2020-12-01 14:30] LABS: C & S Indicated? C&S Done As Ordered; Casts Negative LPF (Negative); Mucus Negative (Negative)
== END 2020-12-01 12:26 | disposition home or self-care (01) ==
LOC: LBN 12:25
PROVIDERS: Nurse Practitioner Family; PCP Family Medicine; Visit Provider Physician Assistant
DX: N39.0 Urinary tract infection, site not specified (principal)
CPT/HCPCS: 81003; 81015; 87086

== ENCOUNTER → 2020-12-05 13:35 | Outpatient (BNVA) | payer MEDICARE, OTHER, SELFPAY | PROVIDERS: PCP Family Medicine; Referring Provider Family Medicine; Visit Provider Urology | DX: N94.9 Unspecified condition associated with female genital organs and menstrual cycle (principal); R35.0 Frequency of micturition; R39.15 Urgency of urination | CPT/HCPCS: 51700; 51720; 99213 ==

== ENCOUNTER 2020-12-06 18:26 | Outpatient (REF) | payer MEDICARE, OTHER, SELFPAY ==
[2020-12-06 14:41] LABS: Bilirubin Color Interference (Negative); Blood Color Interference (Negative); Clarity Sl Cloudy (Clear); Glucose Color Interference mg/dL (Negative); Ketones Color Interference mg/dL (Negative); Leukocyte Esterase Color Interference (Negative); Nitrite Color Interference (Negative); Specific Gravity 1.014 (1.005-1.025); Urobilinogen Color Interference EU/dL (Up TO 0.2)
[2020-12-06 14:59] LABS: Epithelial Cells Few HPF (Negative); RBC Negative HPF (0-2); WBC 0-2 HPF (0-5)
[2020-12-06 15:00] LABS: Bacteria Rare HPF (Negative); C & S Indicated? No; Casts Negative LPF (Negative); Crystals Negative HPF (Negative); Mucus Trace (Negative); Other Cells Few Renal (Negative)
== END 2020-12-06 18:27 | disposition home or self-care (01) ==
LOC: NCHCN 18:26
PROVIDERS: PCP Family Medicine; Visit Provider Family Medicine
DX: R35.0 Frequency of micturition (principal)
CPT/HCPCS: 81003; 81015

== ENCOUNTER 2020-12-08 15:21 | Emergency (ER) | payer MEDICARE, OTHER, SELFPAY ==
--- NOTE | 2020-12-08 15:23 | W.ED.GENAD ---
Discharge Plan Disposition Patient Disposition: HOME Condition: Stable Discharge Details Clinical Impression: Anxiety disorder Primary Care Provider: Valerio Granger ED Provider: Lauren Decker [place] Meds and New Rx's Prescriptions: Continued melatonin 10 mg capsule 10 mg PO HS PRNRF: 0 clonidine HCl 0.1 mg tablet 0.1 mg PO BID RF: 0 quetiapine [Seroquel] 100 mg tablet 200 mg PO HS RF: 0 pantoprazole 40 mg tablet,delayed release (DR/EC) 40 mg PO DAILY Qty: 90 RF: 3 potassium chloride 20 mEq tablet extended release 20 meq PO DAILY Qty: 90 RF: 3 sulfamethoxazole-trimethoprim 400-80 mg tablet 1 tab PO three times/week Qty: 36 RF: 3 hydroxyzine HCl 10 mg tablet 10 mg PO QHS RF: 0 hydroxyzine HCl 25 mg tablet 25 mg PO ONCE RF: 0 amitriptyline 25 mg tablet 25 mg PO BID Qty: 90 RF: 2 nitrofurantoin monohyd/m-cryst [Macrobid] 100 mg capsule 100 mg PO Q12H Qty: 10 RF: 0 buspirone 5 mg tablet 15 mg PO BID RF: 0 cephalexin 500 mg tablet 500 mg PO QID Qty: 20 RF: 0 ibuprofen 200 MG capsule 200 mg PO am prn RF: 0 calcium polycarbophil [Fiber-Tabs] 625 mg tablet 625 mg PO DAILY Qty: 90 RF: 3 cyanocobalamin (vitamin B-12) 1,000 mcg capsule 1,000 mcg PO DAILY Qty: 90 RF: 3 docusate sodium 100 mg capsule 100 mg PO BID Qty: 180 RF: 3 levothyroxine 25 mcg tablet 12.5 mcg PO DAILY Qty: 45 RF: 3 magnesium 250 mg tablet 250 mg PO DAILY Qty: 90 RF: 3 Myrbetriq 50 mg tablet extended release 24 hr 50 mg PO DAILY Qty: 90 RF: 3 phenazopyridine [Pyridium] 100 mg tablet 100 mg PO TID PRN (Reason: pain) Qty: 90 RF: 0 topiramate 25 mg tablet 25 mg PO BID Qty: 60 RF: 11 topiramate 50 mg tablet 50 mg PO BID Qty: 60 RF: 11 clotrimazole-betamethasone 1-0.05 % cream 1 applic topical BID Qty: 45 RF: 0 sertraline 50 mg tablet 50 mg PO DAILY Qty: 90 RF: 3 lorazepam 1 mg tablet 1 - 2 mg PO QID Qty: 84 RF: 5 quetiapine 50 mg Tablet 50 mg PO BID RF: 0 Discharge Instructions Instructions: Anxiety (ED) Additional Instructions: Please take your medications as prescribed. Mental health will be in touch tomorrow to check in with you. If you have any concerns about the night please feel free to call them at [phone]. Please follow-up with your primary care in the next 1 to 2 weeks for reevaluation. Develop any new or worsening symptoms please seek care urgently once again. Referrals: Valerio Granger. [Primary Care Provider] - Discharge Data Discharge Date/Time-TO BE ENTERED AT DEPARTURE: 12/08/20 18:15 Medical Decision Making <MERVAT Patel - Last Filed: 12/09/20 08:06> 74-year-old female presents with a friend, senior net application developer, for what she describes as flipping out. Patient apparently has a lack of resources at home, 2 caretakers are currently not able to help with their usual duties. Patient did not take her medications this morning or this afternoon. She reports anxious, tearful, vague SI without specific plan. She has no acute medical concerns or complaints. Will obtain laboratory values for medical clearance, if able to medically clear then will request a mental health evaluation. Care plan, mental health evaluation, and CPSO all initiated. Medical Records Medical records reviewed: Yes I reviewed the patient's medical records. <MERVAT Batres - Last Filed: 12/08/20 18:21> Care transition myself and Joel Bateman PA-C. Please see his note regarding history, presentation and exam. In brief, patient is a 74-year-old female who presented today appearing anxious and not having taken her medications this morning or noon. Patient had a very regimented medication schedule for her multiple psychiatric elements. Secondary to fairly abrupt changes in her home care providers, patient did not have these medications given to her this morning or noon. Patient denies any suicidal ideations to myself and is requesting discharge. Labs reviewed. CBC within normal limits. Creatinine is elevated at 1.2, this is baseline for the patient. TSH within normal limits. UA does not indicate infection. Patient was evaluated by mental health. While the patient certainly appears anxious and is requesting to go home, she is answering questions appropriately and denies thoughts of self-harm or harming others. Patient would like to go home and continue on her typical regimen. If so that she is safe to be discharged home. Her home care provider if you are able to drive her home. Plan is for mental health to touch base with patient tomorrow. She was given the emergency numbers today with physician anytime if she has any recurrence of symptoms. Return precautions were discussed at length. All other questions or concerns were addressed and she is agreement with plan. Patient does have a history of dementia. I did speak with patient's home care provider and she is concerned that they are having difficulty stopping all the shifts required to be able to keep the patient safe at home and ensure that her medications are being given in a timely manner. I have asked care management to become involved. I do feel that treatment first would be appropriate. Up until now, the patient has been hesitant to going into a long-term care facility but ultimately, while not needed emergently, this may be required if she is not able to receive the care needed to keep her safe at home. HPI <MERVAT Patel - Last Filed: 12/09/20 08:06> General Mode of arrival: ambulatory. Date/Time Provider Initiated Documentation: 12/08/20 15:21. Limitations to Documentation: other (baseline dementia). Information obtained by: patient. HPI Narrative: This is a 74-year-old female with past medical history that includes bipolar 2 disorder, insomnia, dementia, diabetes, GERD, fibromyalgia, hyperlipidemia, hypothyroidism, NE, osteoarthritis, presenting to the ER via private vehicle with her senior net application developer and friend Radha. I was able to talk with them and to obtain additional information. She states that when the patient is having a episode like this, she typically refers to her as Nathan as opposed to Radha. When Radha went to her house this afternoon she thought that she had not taken her morning or afternoon medications. Radha states that she does live at home alone but has 3 caretakers, 1 senior net application developer is quarantining because of Covid, the other senior net application developer is dealing with a family emergency so Ms. Hernandez certainly does not have the typical resources that she has. No acute medical concerns or complaints at this time. Patient states that she needs to talk with someone in person, has a difficult time with telehealth. She states that she received a phone call this morning, was unsure who it was, and the phone call made her flipped out. Patient reports SI, has had previous overdose attempts, has no specific plan today. Patient denies any hallucinations. She denies recent illness or trauma. Related Data Home Medications Medication Instructions Recorded Confirmed ibuprofen 200 mg PO am prn tab-cap 05/06/18 12/08/20 melatonin 10 mg capsule 10 mg PO HS PRN 05/14/19 12/08/20 clonidine HCl 0.1 mg tablet 0.1 mg PO BID 06/02/19 12/08/20 calcium polycarbophil 625 mg tablet 625 mg PO DAILY #90 tab 06/10/19 12/08/20 cyanocobalamin (vitamin B-12) 1,000 mcg PO DAILY #90 cap 06/10/19 12/08/20 1,000 mcg capsule buspirone 5 mg tablet 15 mg PO BID tab 08/04/19 12/08/20 quetiapine 50 mg PO BID 11/14/19 12/08/20 quetiapine 100 mg tablet 200 mg PO HS tab 11/17/19 10/26/20 docusate sodium 100 mg capsule 100 mg PO BID #180 cap 01/25/20 12/08/20 levothyroxine 25 mcg tablet 12.5 mcg PO DAILY #45 tab-cap 03/17/20 12/08/20 magnesium 250 mg tablet 250 mg PO DAILY #90 tab 04/11/20 12/08/20 pantoprazole 40 mg tablet,delayed 40 mg PO DAILY #90 tab-cap 04/11/20 12/08/20 release potassium chloride 20 mEq 20 meq PO DAILY #90 tab-cap 04/11/20 10/26/20 tablet,extended release sulfamethoxazole 400 1 tab PO three times/week #36 tab 04/11/20 10/26/20 mg-trimethoprim 80 mg tablet mirabegron 50 mg tablet,extended 50 mg PO DAILY #90 tab 04/27/20 10/26/20 release 24 hr phenazopyridine 100 mg tablet 100 mg PO TID PRN #90 tab 06/05/20 10/26/20 amitriptyline 25 mg tablet 25 mg PO BID #90 tab 09/22/20 12/08/20 hydroxyzine HCl 10 mg tablet 10 mg PO QHS 09/22/20 12/08/20 hydroxyzine HCl 25 mg tablet 25 mg PO ONCE tab 09/22/20 12/08/20 nitrofurantoin 100 mg PO Q12H #10 cap 09/27/20 10/26/20 monohydrate/macrocrystals 100 mg capsule topiramate 25 mg tablet 25 mg PO BID #60 tab 11/13/20 12/08/20 topiramate 50 mg tablet 50 mg PO BID #60 tab 11/13/20 12/08/20 clotrimazole-betamethasone 1 1 applic TOPICAL BID #45 g 11/22/20 %-0.05 % topical cream sertraline 50 mg tablet 50 mg PO DAILY #90 tab 11/27/20 12/08/20 cephalexin 500 mg tablet 500 mg PO QID #20 tab 12/06/20 12/06/20 lorazepam 1 mg tablet 1 - 2 mg PO QID #84 tab 12/08/20 12/08/20 Previous Rx's Medication Instructions Recorded calcium polycarbophil 625 mg tablet 625 mg PO DAILY #90 tab 06/10/19 cyanocobalamin (vitamin B-12) 1,000 mcg PO DAILY #90 cap 06/10/19 1,000 mcg capsule docusate sodium 100 mg capsule 100 mg PO BID #180 cap 01/25/20 levothyroxine 25 mcg tablet 12.5 mcg PO DAILY #45 tab-cap 03/17/20 magnesium 250 mg tablet 250 mg PO DAILY #90 tab 04/11/20 pantoprazole 40 mg tablet,delayed 40 mg PO DAILY #90 tab-cap 04/11/20 release potassium chloride 20 mEq 20 meq PO DAILY #90 tab-cap 04/11/20 tablet,extended release sulfamethoxazole 400 1 tab PO three times/week #36 tab 04/11/20 mg-trimethoprim 80 mg tablet mirabegron 50 mg tablet,extended 50 mg PO DAILY #90 tab 04/27/20 release 24 hr phenazopyridine 100 mg tablet 100 mg PO TID PRN #90 tab 06/05/20 amitriptyline 25 mg tablet 25 mg PO BID #90 tab 09/22/20 nitrofurantoin 100 mg PO Q12H #10 cap 09/27/20 monohydrate/macrocrystals 100 mg capsule topiramate 25 mg tablet 25 mg PO BID #60 tab 11/13/20 topiramate 50 mg tablet 50 mg PO BID #60 tab 11/13/20 clotrimazole-betamethasone 1 1 applic TOPICAL BID #45 g 11/22/20 %-0.05 % topical cream sertraline 50 mg tablet 50 mg PO DAILY #90 tab 11/27/20 cephalexin 500 mg tablet 500 mg PO QID #20 tab 12/06/20 lorazepam 1 mg tablet 1 - 2 mg PO QID #84 tab 12/08/20 Allergies Allergy/AdvReac Type Severity Reaction Status Date / Time morphine AdvReac Mild VOMITS Verified 12/08/20 16:36 General MARSHA: 4 Review of Systems <MERVAT Patel - Last Filed: 12/09/20 08:06> Constitutional Constitutional: Denies fatigue, Denies fever(s) and Denies headache(s) ENT Ears, Nose, Mouth, and Throat: Denies headache(s) and Denies neck pain Cardiovascular Cardiovascular: Denies chest pain and Denies dyspnea Respiratory Respiratory: Denies cough and Denies dyspnea Gastrointestinal Gastrointestinal: Denies abdominal pain, Denies nausea and Denies vomiting Genitourinary Genitourinary: Denies dysuria Musculoskeletal Musculoskeletal: Denies back pain and Denies neck pain Integumentary/Breasts Skin/Breast: Denies rash Neurologic Neurologic: Denies headache(s) Psychiatric Psychiatric: Reports anxiety, Denies homicidal ideation and Reports suicidal ideation Endocrine Endocrine: Denies fatigue PFSH <MERVAT Patel - Last Filed: 12/09/20 08:06> Medical History ASCVD (arteriosclerotic cardiovascular disease) Bipolar 2 disorder Breast cancer 1998-Right infiltrating ductal Chronic constipation Chronic insomnia Dementia Diabetes resolved with weight loss Dyspnea Fibromyalgia GERD (gastroesophageal reflux disease) Glaucoma Headache Hyperlipidemia Hyponatremia from psychiatric meds. on fluid restriction Hypothyroid Myocardial infarction Osteoarthritis Sciatica Vitamin B12 deficiency Surgical History BUNIONECTOMY LEFT FOOT-02/24/15 CARDIAC CATH LEFT, EF 70% History of bilateral oophorectomy History of cataract surgery History of cataract surgery History of knee replacement History of knee replacement History of lumpectomy Oophrectomy, Both L/S bilat prophylactic oopherectomy Family History Mother Neoplasm BREAST Father Heart disease Brother No problems noted. Grandfather No problems noted. FAMILY HISTORY Depression Social History Smoking/Tobacco Use Status: Current every day Tobacco Type: cigarettes Smoking risk assessment performed?: Yes Alcohol Intake: former Drug use: Never Substance use type: does not use Household members: other Details: SELF Pets and animals: Yes (cat) Current gender identity: female What type of physical activity do you participate in: none Mini/Holiness: [employer] Special mini needs: No Do you feel safe at home: Yes Do you feel safe in your relationship?: Yes Additional Social history: Lives alone with her 2 cats Exam <MERVAT Patel - Last Filed: 12/09/20 08:06> Const General: cooperative, healthy appearing, comfortable and anxious (Tearful) Orientation: alert, awake, oriented to person, oriented to place and confused (Date) [facility] Head: normal to inspection, normocephalic and atraumatic Eyes General: appearance normal, both eyes and all related structures Conjunctivae: conjunctivae normal Sclera: sclerae normal Neck Neck: normal visual inspection, full ROM, no meningeal signs, trachea midline, supple and nontender Resp Effort & Inspection: normal respiratory effort and able to speak in complete sentences Auscultation: clear to auscultation bilaterally Cardio Rate: regular rate Rhythm: regular rhythm GI Palpation: soft and nontender Back/Spine/Pelvis Back: No back tenderness Skin General skin exam: no rashes or lesions noted Neuro General: patient alert, patient awake, oriented Patient Orientation: Person and Place, moves all extremities and no focal motor deficits Cognition: normal cognition Speech: speech normal Gait: normal gait Motor: muscle tone normal throughout Sensory Exam: no sensory deficits noted Extrem General: normal to inspection and full ROM Psych Appearance: grossly normal Mental Status: mental status grossly normal Speech and Movement: speech and movement normal Mood: anxious mood Affect: sad and anxious affect Attitude: cooperative Thought Process: normal Thought Content: suicidality Insight: limited Judgment: limited Sign Out <MERVTA Patel - Last Filed: 12/09/20 08:06> Sign Out Data: Sign Out Comment: Presented anxious, tearful, vague SI with no specific plan. No acute medical concerns or complaints. Awaiting laboratory values for medical screening and clearance, if cleared, subsequent mental health evaluation to be initiated. Last updated by Lucas Bateman PA at 12/08/20 16:12
[2020-12-08 15:34] VITALS: BP 146/76; PULSE 82; RESP 18; TEMP 36.9; O2SAT 96
[2020-12-08 15:59] LABS: Abs Immature Grans 0.01 10^3/uL (0.0-0.06); Absolute Basophil Count 0.03 10^3/uL (0.0-0.2); Absolute Eosinophil Count 0.03 10^3/uL (0.0-0.7); Absolute Lymphocyte Count 0.98 10^3/uL (1.2-3.4); Absolute Monocyte Count 0.38 10^3/uL (0.1-0.8); Absolute Neutrophil Count 3.73 10^3/uL (1.2-6.7); Basophils % 0.6; Eosinophils % 0.6; HCT 37.1 % (36.0-46.0); HGB 12.1 g/dL (11.2-15.7); Immature Grans % 0.2; MCH 31.8 pg (27.0-33.0); MCHC 32.6 % (32.0-36.0); MCV 97.4 fL (80-95); Monocytes % 7.4; Neutrophils % 72.2; Nucleated RBC 0 %; Platelet Count 169 10^3/uL (130-400); RBC 3.81 10^6/uL (3.93-5.22); RDW 12.8 % (11.7-14.6); RDW-SD 45.4 fL; WBC 5.16 10^3/uL (4.4-10.8)
--- NOTE | 2020-12-08 16:01 | PDOC.CMSAFED ---
- If Service Date Differs Date of service: 12/08/20 Time of Service: 16:01 Care Management Safety Plan Status: Voluntary DISPOSITION: Fawn is assessed via zoom by Sabrina [facility] Crisis Screener. Fawn is able to contract for safety and is denying suicidal or homicidal ideation, so she is being discharged home. She will follow up with [facility] by telephone over the weekend. Chief Complaint: Fawn is a 74 year old female who lives alone in [place]. A friend brings her to the ED today due to suicidal ideation precipitated by an upsetting telephone call related to her taxes. CM will respond to ED to assess patient after patient has been medically cleared and assessed by screener. If screener deems patient meets criteria for psychiatric stabilization CM will facilitate interdepartmental huddle with [facility] screener for safety planning considerations and meet with patient to review [facility] policy and safety plan, establish individual wishes for treatment and maintain patient rights. In the interim; please note safety plan below to guide patient care while awaiting further assessment in the ED. SAFETY PLAN: 1. Will remain on suicide precautions and in paper clothes. 2. Will remain in room under direct supervision of one-on-one staff at all times provided by [employer] potable water treatment operator. 3. May have paper cups, plates, finger foods as well as a cardboard spoon with which to eat meals. 4. Follow [facility] Management of the Admitted Behavioral Health Patient policy. 5. Comfort bath system only. 6. No personal belongings 7. No visitors per [facility] Covid policy. 8. Phone: May make and receive phone calls at nursing discretion. 9. Due to VOLUNTARY status, if patient wishes to leave [facility], staff will contact [facility] Crisis Screener ([phone]) and On-Call W[employer]her ([phone]) as soon as possible. In the event of elopement, notify [facility] Police ([phone]). If deemed appropriate for inpatient psychiatric care, safety plan will be established with patient, and care team, to adhere to patient goals, identify restrictions based on behavioral status, address nutrition, and determine allowed personal belongings, tools for hygiene and personal care. As well plan will determine level of activity including ambulation, level of supervision, visitors, and determine privileges based on level of acuity, behaviors and level of engagement by patient.
[2020-12-08 16:22] LABS: ALT 21 U/L (14-59); AST 22 U/L (15-37); Albumin 3.9 g/dL (3.4-5.0); Alkaline Phosphatase 63 U/L (46-116); Anion Gap 8.2 mmol/L (3-11); BUN 23 mg/dL (7-18); Bilirubin, Total 0.5 mg/dL (0.2-1.0); CO2 27.8 mmol/L (21.0-32.0); CREATININE 1.2 mg/dL (0.55-1.02); Chloride 104 mmol/L (98-107); Estimated GFR 44.04 (mL/min/1.73m2); Glucose 92 mg/dL (74-106); Lipase 228 U/L (73-393); Potassium 3.6 mmol/L (3.5-5.1); Sodium 140 mmol/L (136-145); TSH (W/Ref FT4) 1.27 uIU/mL (0.36-3.74); Total Protein 8.4 g/dL (6.4-8.2)
[2020-12-08 16:23] LABS: *AMPHETAMINES SCREEN URINE Negative (Negative); *BARBITURATES SCREEN URINE Negative (Negative); *BENZODIAZEPINES SCREEN URINE Negative (Negative); Cannabinoids THC Negative (Negative); Clarity Clear (Clear); Cocaine Screen,Urine Negative (Negative); METHADONE URINE SCREEN Negative (Negative); OPIATES URINE SCREEN Negative (Negative)
[2020-12-08 16:24] LABS: Bilirubin Color Interference (Negative); Blood Color Interference (Negative); Glucose Color Interference mg/dL (Negative); Ketones Color Interference mg/dL (Negative); Leukocyte Esterase Color Interference (Negative); Nitrite Color Interference (Negative); Urobilinogen Color Interference EU/dL (Up TO 0.2)
[2020-12-08 16:26] LABS: Bacteria Negative HPF (Negative); C & S Indicated? No; Casts Negative LPF (Negative); Crystals Few Amorphous HPF (Negative); Epithelial Cells Negative HPF (Negative); Mucus Negative (Negative); Other Cells Negative (Negative); RBC Negative HPF (0-2); WBC Negative HPF (0-5)
[2020-12-08 16:27] LABS: Tricyclic Antidepressants POSITIVE (Negative)
[2020-12-08 16:39] LABS: ETHANOL BLOOD < 3.0 mg/dL (<3)
--- NOTE | 2020-12-08 17:41 | PDOC.MHCN_ITS ---
Date of service: 12/08/20 Time of Service: 17:42 Mental Health Crisis Note Presenting Issue How did you arrive at the ED and why did you come: Client arrived at the ED by her friend/caregiver. Client reports that she was very upset talking about her taxes. Precipitating Factors Client reports no SI or HI. Disposition BEHAVIOR: Client is agitated throughout the assessment. She is yelling and crying that all she wants to do is go home. EYE CONTACT: Client makes fair eye contact. At times, she has difficulty handling the IPad which causes it to face the ceiling. MOOD: Clients mood is irritable. AFFECT: Clients affect is normal. APPETITE: Client reports a normal appetite. SLEEP(trouble falling/staying asleep: Client reports that she has been waking up early in the morning and is tired throughout the day. Plan Client would like to go home to be with her cats. Client is given the [facility] emergency number to call if she needs support. [facility] web site manager will follow up with her tomorrow. Signature Clinician's Name/Title: Sabrina White [facility] Emergency Clinician
--- NOTE | 2020-12-08 18:02 | NUR.NOTE ---
Referral to Care Management to help facilitate a team meeting on behalf of patient for equipment operator intermodal yard planning.Nursing Note:
== END 2020-12-08 18:15 | disposition home or self-care (01) ==
PROVIDERS: Physician Assistant; Emergency Provider Physician Assistant; PCP Family Medicine
DX: F41.9 Anxiety disorder, unspecified (principal)
CPT/HCPCS: 36415; 80053; 80307; 83690; 99284; 80320; 81003; 81015; 84443; 85025; 99283

== ENCOUNTER → 2020-12-12 13:34 | Outpatient (BNVA) | payer MEDICARE, OTHER, SELFPAY | PROVIDERS: PCP Family Medicine; Referring Provider Family Medicine; Visit Provider Urology | DX: R10.2 Pelvic and perineal pain (principal); R35.0 Frequency of micturition | CPT/HCPCS: 51700; 99213; J1644 ==

== ENCOUNTER → 2020-12-22 13:08 | Outpatient (BNVA) | payer MEDICARE, OTHER, SELFPAY | PROVIDERS: PCP Family Medicine; Referring Provider Family Medicine; Visit Provider Urology | DX: R10.2 Pelvic and perineal pain (principal); R35.0 Frequency of micturition; N32.81 Overactive bladder; N39.0 Urinary tract infection, site not specified | CPT/HCPCS: 51700; 81003; J1644 ==

== ENCOUNTER 2020-12-23 18:15 | Emergency (ER) | payer MEDICARE, OTHER, SELFPAY ==
[2020-12-23 18:15] VITALS: BP 188/89; PULSE 65; RESP 22; TEMP 36.3; O2SAT 96
--- NOTE | 2020-12-23 18:29 | ED.GENADUL_ITS ---
Discharge Plan Disposition Patient Disposition: HOME Condition: Stable Discharge Details Clinical Impression: Hallucination, visual Primary Care Provider: Valerio Granger ED Provider: Peri Soriano Salinas Meds and New Rx's Prescriptions: Continued melatonin 10 mg capsule 10 mg PO HS PRNRF: 0 hydroxyzine HCl 10 mg tablet 10 - 20 mg PO DIRECTED RF: 0 hydroxyzine HCl 25 mg tablet 25 mg PO QAM RF: 0 buspirone 5 mg tablet 15 mg PO BID RF: 0 levothyroxine 25 mcg tablet 12.5 mcg PO DAILY Qty: 45 RF: 3 magnesium 250 mg tablet 250 mg PO DAILY Qty: 90 RF: 3 amitriptyline 25 mg tablet 25 mg PO HS RF: 0 No Action clonidine HCl 0.1 mg tablet 0.1 mg PO BID RF: 0 quetiapine [Seroquel] 100 mg tablet 200 mg PO HS RF: 0 pantoprazole 40 mg tablet,delayed release (DR/EC) 40 mg PO DAILY Qty: 90 RF: 3 potassium chloride 20 mEq tablet extended release 20 meq PO DAILY Qty: 90 RF: 3 ibuprofen 200 MG capsule 200 mg PO am prn RF: 0 calcium polycarbophil [Fiber-Tabs] 625 mg tablet 625 mg PO DAILY Qty: 90 RF: 3 cyanocobalamin (vitamin B-12) 1,000 mcg capsule 1,000 mcg PO DAILY Qty: 90 RF: 3 docusate sodium 100 mg capsule 100 mg PO BID Qty: 180 RF: 3 topiramate 25 mg tablet 25 mg PO BID Qty: 60 RF: 11 topiramate 50 mg tablet 50 mg PO BID Qty: 60 RF: 11 clotrimazole-betamethasone 1-0.05 % cream 1 applic topical BID Qty: 45 RF: 0 sertraline 50 mg tablet 50 mg PO DAILY Qty: 90 RF: 3 quetiapine 50 mg Tablet 50 mg PO HS RF: 0 lorazepam 1 mg tablet 1 mg PO QID RF: 0 buspirone 15 mg tablet 15 mg PO BID RF: 0 Myrbetriq 50 mg tablet extended release 24 hr 50 mg PO DIRECTED RF: 0 sulfamethoxazole-trimethoprim 400-80 mg tablet 1 tab DIRECTED RF: 0 Discharge Instructions Instructions: Psychiatric Hallucinations (ED) Additional Instructions: Please call [phone] which is the [place] human services emergency number if you have any concerns, thoughts of harming yourself or others. Donita with [facility] will come in check on you tomorrow. Please follow-up as directed by your care team. Follow up with primary care provider in 3-5 days. Return to ED sooner if any worsening or concerns. Increase oral fluids. Referrals: Valerio Granger [Primary Care Provider] - Medical Decision Making 74-year-old female presents via EMS for psychiatric evaluation. [facility] called EMS and mental health screener patient is being followed by [facility]. She was referred to the ED for evaluation. Patient is reporting hallucinations and stating that she has been visited by her ex- and she saw her and his girlfriend. She states his girlfriend comes up and knits, but he just stays outside reportedly her has been for the past 4 years. She does get very anxious has flight of ideas. She is complaining of frequency in urination and groin pain and dysuria. She reports that she has fallen a few times this year slipped on the ice. But none recently. She denies any suicidal or homicidal ideations currently. She has a past medical history of bipolar type I, hyponatremia, anxiety, dementia, parkinsonian features, mixed personality disorder, hypertension, memory loss, migraines. She currently lives alone and has home health come to her house a daily for approximately 6 hours. She does state that she did take her normal daily medications prior to arrival. Patient did have a urology appointment yesterday. Patient is well-known to the department and care management and was seen here approximately 2 weeks ago for similar type symptoms. At that time she was suicidal. She is denying suicidality at this time. 1899:Donita with [facility] services is here in department she is at bedside for patient evaluation. She was on scene with EMS and [facility] police and report that patient was confused, she is unsure if she has taken any of her normal daily medications. Care management pain is paged and awaiting callback. 1923: Spoke with care management Luly regarding situation, discussed patient case and details. At this time patient is not medically cleared. According to Donita patient does not want to stay, she is concerned about her cats which have been taken care of. According to [facility], patient is not a candidate for admission due to denying any suicidal or homicidal ideation they have determined she is not a harm to herself or others at this point. 2009: Donita with [facility] human services is here to verify her medication list, upon patient reevaluation she is ANO x3. She is eating a sandwich has drank some water, she states that she does want to go home. At this time she has been cleared by an EKG a chest due to patient is not actively suicidal or homicidal. Medical work-up including CBC, CMP, urinalysis, alcohol level, Tylenol and salicylate level was ordered. CBC shows white blood cell count of 3.57, no leukocytosis or left shift, sodium is 138, potassium 3.8 BUN is 19 creatinine is 1.5 GFR 34 which is somewhere around patient's baseline, urine shows no evidence of urinary tract infection, salicylate is 9.5, acetaminophen less than 2 urine drug screen is still pending at this time. Ethyl alcohol level is less than 3.0. 2058: Spoke with patient's primary contact Al who states that she has not had hallucinations as far as he knows. He states that he checks on her once a month and she has been more confused over the last 2 months. Donita with [facility] is to check on patient tomorrow. [employer] has been dismissed at this time, patient states that she does not want to go home because of her However she does feel scared to go home. She continues to deny any suicidal or homicidal ideations. 2109: Call made to Erica who is listed as patient's caregiver, no answer left voicemail. At this time there is no medical reason seen to keep patient in the hospital no evidence of UTI. Will call [facility] for patient transport home. 2121: Spoke again with Al and he agrees to come pick patient up and take her home. 2139: Patient's friend Leon who is listed on her primary contact is here to pick patient up, patient is ambulatory, requesting to go smoke prior to discharge. They were given instructions verbalized understanding. I did discuss with Leon couple of times the plan of care and the plan for close follow-up tomorrow by [facility] human services and her care team. Discussed strict return instructions, verbalizes understanding. This text was generated using Dragon dictation system, please disregard any oddities of phrase or misspellings. HPI General Mode of arrival: EMS . Date/Time Provider Initiated Documentation: 12/23/20 18:17 . Limitations to Documentation: altered mental status . Information obtained by: patient and RN notes reviewed . HPI Narrative: 74-year-old female presents via EMS for psychiatric evaluation. [facility] Police called EMS and mental health screener patient is being followed by [facility]. She was referred to the ED for evaluation. Patient is reporting hallucinations and stating that she has been visited by her ex- and she saw her and his girlfriend. She states his girlfriend comes up and knits, but he just stays outside reportedly her has been for the past 4 years. She does get very anxious has flight of ideas. She is complaining of frequency in urination and groin pain and dysuria. She reports that she has fallen a few times this year slipped on the ice. But none recently. She denies any suicidal or homicidal ideations currently. She has a past medical history of bipolar type I, hyponatremia, anxiety, dementia, parkinsonian features, mixed personality disorder, hypertension, memory loss, migraines. She currently lives alone and has home health come to her house a daily for approximately 6 hours. She does state that she did take her normal daily medications prior to arrival. Related Data Home Medications Medication Instructions Recorded Confirmed ibuprofen 200 mg PO am prn tab-cap 05/06/18 12/23/20 melatonin 10 mg capsule 10 mg PO HS PRN 05/14/19 12/23/20 clonidine HCl 0.1 mg tablet 0.1 mg PO BID 06/02/19 12/23/20 calcium polycarbophil 625 mg tablet 625 mg PO DAILY #90 tab 06/10/19 12/08/20 cyanocobalamin (vitamin B-12) 1,000 mcg PO DAILY #90 cap 06/10/19 12/08/20 1,000 mcg capsule buspirone 5 mg tablet 15 mg PO BID tab 08/04/19 12/23/20 quetiapine 50 mg PO HS 11/14/19 12/23/20 quetiapine 100 mg tablet 200 mg PO HS tab 11/17/19 12/23/20 docusate sodium 100 mg capsule 100 mg PO BID #180 cap 01/25/20 12/08/20 levothyroxine 25 mcg tablet 12.5 mcg PO DAILY #45 tab-cap 03/17/20 12/23/20 magnesium 250 mg tablet 250 mg PO DAILY #90 tab 04/11/20 12/08/20 pantoprazole 40 mg tablet,delayed 40 mg PO DAILY #90 tab-cap 04/11/20 12/23/20 release potassium chloride 20 mEq 20 meq PO DAILY #90 tab-cap 04/11/20 12/23/20 tablet,extended release hydroxyzine HCl 10 mg tablet 10 - 20 mg PO DIRECTED 09/22/20 12/23/20 hydroxyzine HCl 25 mg tablet 25 mg PO QAM tab 09/22/20 12/23/20 topiramate 25 mg tablet 25 mg PO BID #60 tab 11/13/20 12/23/20 topiramate 50 mg tablet 50 mg PO BID #60 tab 11/13/20 12/23/20 clotrimazole-betamethasone 1 1 applic TOPICAL BID #45 g 11/22/20 %-0.05 % topical cream sertraline 50 mg tablet 50 mg PO DAILY #90 tab 11/27/20 12/23/20 amitriptyline 25 mg PO HS 12/23/20 12/23/20 buspirone 15 mg PO BID 12/23/20 12/23/20 lorazepam 1 mg PO QID 12/23/20 12/23/20 mirabegron [Myrbetriq] 50 mg PO DIRECTED 12/23/20 12/23/20 sulfamethoxazole-trimethoprim 1 tab DIRECTED 12/23/20 12/23/20 Previous Rx's Medication Instructions Recorded calcium polycarbophil 625 mg tablet 625 mg PO DAILY #90 tab 06/10/19 cyanocobalamin (vitamin B-12) 1,000 mcg PO DAILY #90 cap 06/10/19 1,000 mcg capsule docusate sodium 100 mg capsule 100 mg PO BID #180 cap 01/25/20 levothyroxine 25 mcg tablet 12.5 mcg PO DAILY #45 tab-cap 03/17/20 magnesium 250 mg tablet 250 mg PO DAILY #90 tab 04/11/20 pantoprazole 40 mg tablet,delayed 40 mg PO DAILY #90 tab-cap 04/11/20 release potassium chloride 20 mEq 20 meq PO DAILY #90 tab-cap 04/11/20 tablet,extended release topiramate 25 mg tablet 25 mg PO BID #60 tab 11/13/20 topiramate 50 mg tablet 50 mg PO BID #60 tab 11/13/20 clotrimazole-betamethasone 1 1 applic TOPICAL BID #45 g 11/22/20 %-0.05 % topical cream sertraline 50 mg tablet 50 mg PO DAILY #90 tab 11/27/20 Allergies Allergy/AdvReac Type Severity Reaction Status Date / Time morphine AdvReac Mild VOMITS Verified 12/23/20 18:23 General Stated Complaint: PsychEval MARSHA: 2 Review of Systems All systems reviewed & are unremarkable except as noted in HPI and below Genitourinary Genitourinary: Reports urinary urgency (Urinary frequency and dysuria) Neurologic Neurologic: Reports behavioral changes Psychiatric Psychiatric: Reports behavioral changes, Reports auditory hallucinations, Reports visual hallucinations, Denies homicidal ideation, Denies suicidal ideation and Reports other (Reports not sleeping well ) [facility] Medical History ASCVD (arteriosclerotic cardiovascular disease) Bipolar 2 disorder Breast cancer 1998-Right infiltrating ductal Chronic constipation Chronic insomnia Dementia Diabetes resolved with weight loss Dyspnea Fibromyalgia GERD (gastroesophageal reflux disease) Glaucoma Headache Hyperlipidemia Hyponatremia from psychiatric meds. on fluid restriction Hypothyroid Myocardial infarction Osteoarthritis Sciatica Vitamin B12 deficiency Surgical History BUNIONECTOMY LEFT FOOT-02/24/15 CARDIAC CATH LEFT, EF 70% History of bilateral oophorectomy History of cataract surgery History of cataract surgery History of knee replacement History of knee replacement History of lumpectomy Oophrectomy, Both L/S bilat prophylactic oopherectomy Family History Mother Neoplasm BREAST Father Heart disease Brother No problems noted. Grandfather No problems noted. FAMILY HISTORY Depression Social History Smoking/Tobacco Use Status: Current every day Tobacco Type: cigarettes Smoking risk assessment performed?: Yes Alcohol Intake: former Drug use: Never Substance use type: does not use Household members: other Details: SELF Pets and animals: Yes (cat) Current gender identity: female What type of physical activity do you participate in: none Mini/Sikh: Unitarian Universalist Special mini needs: No Do you feel safe at home: Yes Do you feel safe in your relationship?: Yes Additional Social history: Lives alone with her 2 cats Exam Narrative Exam Narrative: Constitutional: . Appears stated age. Normal body habitus. Agitated, flight of ideas, appears very anxious. Head: Normocephalic, no trauma. Eyes: Pupils PERRLA, Red reflex noted, EOM's intact. Eyelids symmetrical without lesions, discharge, or swelling. ENT: Bilateral TM's WNL, External ear normal to inspection, no mastoid TTP, swelling, or erythema, Nasal turbinates WNL, no nasal discharge. Poor dentition, Posterior pharynx WNL, no exudate. Chest: RRR, Normal S1, S2, distal pulses intact. Resp: Lungs clear to auscultation bilaterally, no wheezes, rales, or rhonchi. Musculoskeletal: Normal gait, 5/5 strength to all four extremities. Does have right-sided kyphosis, small cyst noted to left dorsum of wrist. All appear chronic no erythema or signs of injury. Skin: No suspicious rashes or lesions. Capillary refill less than 2 sec. Neurologic: Cranial nerves II-XII intact. DTR's intact. No focal neuro deficits noted. Hematologic/Lymphatic: No ecchymosis, no lymphadenopathy. Psych Appearance: well kempt Speech and Movement: agitated, restless and slurred speech Mood: anxious mood and manic mood Affect: anxious affect Attitude: cooperative Thought Process: flight of ideas Thought Content: delusions, hallucinations visual (Seeing her ex- and his girlfriend) and suicidality (Denies) Insight: fair and limited Judgment: limited Course Vital Signs Vital signs: Vital Signs Temperature 36.3 C L 12/23/20 18:15 Pulse 65 12/23/20 18:15 Respiratory Rate 22 12/23/20 18:15 Blood Pressure 188/89 H 12/23/20 18:15 Pulse Oximetry 96 12/23/20 18:15 Temperature 36.3 C L 12/23/20 18:15 Temperature Source Oral 12/23/20 18:15 Pulse 65 12/23/20 18:15 Respiratory Rate 22 12/23/20 18:15 Blood Pressure 188/89 H 12/23/20 18:15 Blood Pressure Position Sitting 12/23/20 18:15 Pulse Oximetry 96 12/23/20 18:15 Oxygen Delivery Method Room Air 12/23/20 18:15 Oxygen Flow Rate 0 12/23/20 18:15
[2020-12-23 19:07] LABS: Abs Immature Grans 0.01 10^3/uL (0.0-0.06); Absolute Basophil Count 0.02 10^3/uL (0.0-0.2); Absolute Eosinophil Count 0.02 10^3/uL (0.0-0.7); Absolute Lymphocyte Count 0.72 10^3/uL (1.2-3.4); Absolute Monocyte Count 0.25 10^3/uL (0.1-0.8); Absolute Neutrophil Count 2.55 10^3/uL (1.2-6.7); Basophils % 0.6; Eosinophils % 0.6; HCT 34.1 % (36.0-46.0); HGB 11.6 g/dL (11.2-15.7); Immature Grans % 0.3; Lymphocytes % 20.2; MCH 32.5 pg (27.0-33.0); MCV 95.5 fL (80-95); MPV 9.1 fL (8.0-11.0); Neutrophils % 71.3; Nucleated RBC 0 %; Platelet Count 151 10^3/uL (130-400); RBC 3.57 10^6/uL (3.93-5.22); RDW 12.8 % (11.7-14.6); RDW-SD 45.2 fL; WBC 3.57 10^3/uL (4.4-10.8)
[2020-12-23 19:25] LABS: ALT 15 U/L (14-59); AST 15 U/L (15-37); Albumin 3.8 g/dL (3.4-5.0); Alkaline Phosphatase 57 U/L (46-116); Anion Gap 9.9 mmol/L (3-11); BUN 19 mg/dL (7-18); Bilirubin, Total 0.4 mg/dL (0.2-1.0); CO2 24.1 mmol/L (21.0-32.0); CREATININE 1.5 mg/dL (0.55-1.02); Calcium 8.6 mg/dL (8.5-10.1); Chloride 104 mmol/L (98-107); Estimated GFR 34.04 (mL/min/1.73m2); Glucose 97 mg/dL (74-106); Potassium 3.8 mmol/L (3.5-5.1); Sodium 138 mmol/L (136-145); Total Protein 7.5 g/dL (6.4-8.2)
[2020-12-23 19:43] LABS: Salicylate 9.5 mg/dL (<2.8)
[2020-12-23 19:45] LABS: ETHANOL BLOOD < 3.0 mg/dL (<3)
[2020-12-23] MEDS: LORazepam 0.5 MG TAB PO (19:45)
[2020-12-23 19:46] LABS: Acetaminophen < 2 ug/mL (10-30)
[2020-12-23 19:49] LABS: Bilirubin Negative (Negative); Blood Negative (Negative); Clarity Clear (Clear); Glucose Negative (Negative); Ketones Negative (Negative); Leukocyte Esterase Negative (Negative); Nitrite Negative (Negative); Urobilinogen 0.2 EU/dL (Up TO 0.2)
[2020-12-23 19:54] LABS: *AMPHETAMINES SCREEN URINE Negative (Negative); *BARBITURATES SCREEN URINE Negative (Negative); *BENZODIAZEPINES SCREEN URINE Negative (Negative); Cannabinoids THC Negative (Negative); Cocaine Screen,Urine Negative (Negative); METHADONE URINE SCREEN Negative (Negative); OPIATES URINE SCREEN Negative (Negative)
--- NOTE | 2020-12-23 20:06 | NUR.NOTE ---
unable to verify med list utilized hs list and pharmacy fill list provider aware Nursing Note:
[2020-12-23 20:21] LABS: Tricyclic Antidepressants POSITIVE (Negative)
--- NOTE | 2020-12-24 10:49 | PDOC.MHCN_ITS ---
Date of service: 12/23/20 Time of Service: 06:49 Mental Health Crisis Note Presenting Issue How did you arrive at the ED and why did you come: Client was brought to the ED after calling the [place] [employer] reporting that her (who has been for 4 yrs) was at her house. Client was unsure if she had taken her evening meds and appeared confused. EMS transported her to the hospital. Precipitating Factors Client reports no SI or HI, with no intent or plan. Client believes that her who has been for 4 years is coming back to haunt her. She reports that her husbands girlfriend came to her house today to visit her. Disposition BEHAVIOR: Clients behavior is erratic, she is calmly having a conversation with this commercial loan underwriter one minute, and then begins hysterically crying the next. Client appears confused. EYE CONTACT: Client maintains eye contact throughout the face to face assessment. MOOD: Clients mood is depressed. AFFECT: Clients affect is normal APPETITE: Client reports a poor appetite. SLEEP(trouble falling/staying asleep: Client reports that she has no trouble falling asleep, but only sleeps for a short time, then wakes up and thinks she has slept a full night, when it has only been a few hours. Plan Client does not want hospitalization. Client reports that she wants to go home with her cats. Client will be medically cleared and will be given her evening meds if she has not had them. This commercial loan underwriter wrote down the [facility] Emergency number for client to take home with her and to call if needed. This commercial loan underwriter will reach out to client tomorrow and check in. A referral has been sent to [facility] for supports for client. This commercial loan underwriter spoke with Dental Technologist and discussed supports for client moving forward. Signature Clinician's Name/Title: Sabrina White [facility] Emergency Clinician
== END 2020-12-23 21:53 | disposition home or self-care (01) ==
PROVIDERS: Emergency Provider Registered Nurse Emergency; PCP Family Medicine
DX: R44.1 Visual hallucinations (principal)
CPT/HCPCS: 36415; 80053; 80307; 99284; 80320; 80329; 81003; 85025; 99283

== ENCOUNTER 2020-12-24 14:51 | Inpatient (IN) | payer MEDICARE, OTHER, SELFPAY ==
[2020-12-24 15:06] VITALS: BP 161/82; PULSE 73; RESP 18; TEMP 37.1; O2SAT 99
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
[2020-12-24] MEDS: LORazepam 1 MG TAB PO ×2 (16:01→22:01)
--- NOTE | 2020-12-24 16:42 | PDOC.CMSAFED ---
- If Service Date Differs Date of service: 12/24/20 Time of Service: 16:57 Care Management Safety Plan Status: Involuntary INVOLUNTARY FOR INPATIENT PSYCHIATRIC STABILIZATION. Fawn presents to the [facility] ED for the second time in as many days. Yesterday, it was deemed that due to lack of SI/HI she would not meet criteria for EE hold. CM meets with Fawn to discuss her current situation. She reports wanting to be home with her babies, her cats, but not feeling safe at home and not feeling safe at [facility]. She struggles to emotionally regulate with this life underwriter, marked by crying, high pitched wailing and shallow breaths. She identifies ativan as helpful when she is struggling-CM notified RN-MD ordered medication. She is able to calm down momentarily with cues Fawn take a deep breath, Fawn I am struggling to understand your words; lets take a break until you're calmer. She asks for a warm blanket which CM provides, she lays down and attempts to self-regulate but is easily re-triggered. Fawn is previously known to this life underwriter and appears to have lost a substantial amount of weight; Fawn reports 50lbs. She reports eating yogurt, and food I don't have to fix. She reports not wanting to go back to [facility], or any facility and wanting to only return home at this time. Dr. Ochoa reports reviewing Fawn's presentation with Enio FABIAN at [facility] and intention to seek involuntary hold at this time. 2nd certification by [facility] Psychiatrist will be scheduled within twenty four hours after filing of EE paperwork. Safety plan has been established to meet the needs of the patient, and consideration of the care team, to adhere to patient goals, identify restrictions based on behavioral status, address nutrition, and determine allowed personal belongings, tools for hygiene and personal care. Determine level of activity including ambulation, level of supervision, visitors, and determine privileges based on behaviors and level of engagement by pt. SAFETY PLAN: 1. Will remain on SI/HI precautions. In Paper Clothes 2. Will remain in room under direct supervision of one-on-one staff at all times provided by [employer]; [place], [employer] pole inspector. 3. May have paper cups, plates, finger foods as well as a cardboard spoon 4. Follow [facility] Management of the Admitted Behavioral Health Patient policy. 5. Comfort bath system only. 6. Personal belongings permitted per RN discretion. 7. Visitors: No visitors per current Covid Policy. 8. Activities: activities permitted per RN discretion. 9. Bathroom privileges with escort in ED. 10. Phone: permitted phone contact when requested, per RN discretion. 11. Due to INVOLUNTARY status, patient is being held at [facility] by the Department of Mental Health ([facility]) until 2nd certification by [facility] Psychiatrist can be performed (within 24 hours). Staff will provide de-escalation support (CPI) as needed. If patient wishes to leave [facility], staff will contact [facility] Crisis Screener ([phone]) and On-Call Travelift Operator ([phone]) as soon as possible. In the event of elopement, notify [facility] Police ([phone]). Patient is currently involuntarily at [facility]. [facility] Frontline Log Hauler will continue seeking placement. Please contact the [employer] Travelift Operator ([phone]) for any needed changes to Safety Plan. Safety plan has been provided to interdepartmental care team. Patient will be transported by sheriff's sergeant at time of discharge.
[2020-12-24 17:14] LABS: Abs Immature Grans 0.01 10^3/uL (0.0-0.06); Absolute Basophil Count 0.01 10^3/uL (0.0-0.2); Absolute Eosinophil Count 0.01 10^3/uL (0.0-0.7); Absolute Lymphocyte Count 0.66 10^3/uL (1.2-3.4); Absolute Monocyte Count 0.25 10^3/uL (0.1-0.8); Absolute Neutrophil Count 2.67 10^3/uL (1.2-6.7); Basophils % 0.3; Eosinophils % 0.3; HCT 34.7 % (36.0-46.0); HGB 11.6 g/dL (11.2-15.7); Immature Grans % 0.3; Lymphocytes % 18.3; MCH 31.4 pg (27.0-33.0); MCHC 33.4 % (32.0-36.0); MPV 9.2 fL (8.0-11.0); Monocytes % 6.9; Neutrophils % 73.9; Nucleated RBC 0 %; Platelet Count 156 10^3/uL (130-400); RBC 3.69 10^6/uL (3.93-5.22); RDW 12.6 % (11.7-14.6); RDW-SD 43.8 fL; WBC 3.61 10^3/uL (4.4-10.8)
[2020-12-24 17:24] LABS: COVID-19 PCR Negative (Negative); Influenza A PCR Negative (Negative); Influenza B PCR Negative (Negative); RSV PCR Negative (Negative)
[2020-12-24 17:30] LABS: ALT 15 U/L (14-59); AST 12 U/L (15-37); Albumin 3.5 g/dL (3.4-5.0); Alkaline Phosphatase 54 U/L (46-116); Anion Gap 9.7 mmol/L (3-11); BUN 19 mg/dL (7-18); Bilirubin, Total 0.4 mg/dL (0.2-1.0); CO2 25.3 mmol/L (21.0-32.0); CREATININE 1.3 mg/dL (0.55-1.02); Chloride 107 mmol/L (98-107); Estimated GFR 40.15 (mL/min/1.73m2); Glucose 126 mg/dL (74-106); Potassium 3.5 mmol/L (3.5-5.1); Sodium 142 mmol/L (136-145); TSH (W/Ref FT4) 1.09 uIU/mL (0.36-3.74); Total Protein 7.3 g/dL (6.4-8.2)
[2020-12-24 17:34] LABS: ETHANOL BLOOD < 3.0 mg/dL (<3)
[2020-12-24 17:35] LABS: Acetaminophen < 2 ug/mL (10-30); Salicylate 6.2 mg/dL (<2.8)
[2020-12-24 17:53] LABS: Bilirubin Negative (Negative); Blood Negative (Negative); Clarity Clear (Clear); Glucose Negative (Negative); Ketones Negative (Negative); Leukocyte Esterase Negative (Negative); Nitrite Negative (Negative); Urobilinogen 0.2 EU/dL (Up TO 0.2); pH 7.5 (5-8)
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
[2020-12-24 18:19] LABS: Tricyclic Antidepressants POSITIVE (Negative)
[2020-12-24 18:23] LABS: *AMPHETAMINES SCREEN URINE Negative (Negative); *BARBITURATES SCREEN URINE Negative (Negative); *BENZODIAZEPINES SCREEN URINE Negative (Negative); Cannabinoids THC Negative (Negative); Cocaine Screen,Urine Negative (Negative); METHADONE URINE SCREEN Negative (Negative); OPIATES URINE SCREEN Negative (Negative)
[2020-12-24] MEDS: cloNIDine 0.1 MG TAB PO (22:01)
[2020-12-24] MEDS: QUEtiapine 100 MG TAB PO (22:01)
[2020-12-24] MEDS: QUEtiapine 25 MG TAB 50 MG PO (22:01)
[2020-12-24] MEDS: Amitriptyline 25 MG TAB PO (22:01)
[2020-12-24] MEDS: busPIRone 15 MG TAB PO (22:01)
--- NOTE | 2020-12-24 22:19 | NUR.NOTE ---
Pt intermittently crying, demanding to go home. Able to calm self down and lie back in bed. Meds verified with med claim history, MD Rose aware. Night meds given. Pt aware of plan for stay in ED until inpt psych bed available. Leon to watch cats, pt states food is in the house, cats are fed daily.
[2020-12-24] MEDS: Topiramate 50 MG TAB 75 MG PO (22:28)
[2020-12-25] MEDS: Pantoprazole 40 MG TABCR PO (08:43)
[2020-12-25] MEDS: Levothyroxine 25 MCG TAB 12.5 MCG PO (09:00)
[2020-12-25] MEDS: LORazepam 1 MG TAB PO ×6 (09:00→20:26)
[2020-12-25] MEDS: busPIRone 15 MG TAB PO ×2 (09:00→20:56)
[2020-12-25] MEDS: cloNIDine 0.1 MG TAB PO ×2 (09:00→20:25)
[2020-12-25] MEDS: Topiramate 25 MG TAB 75 MG PO ×2 (09:01→20:56)
[2020-12-25] MEDS: Mirabegron 25 MG TABCR PO (09:01)
[2020-12-25] MEDS: Polyethylene Glycol 3350 17 GM PACKET PO (09:58)
[2020-12-25 14:27] VITALS: BP 160/69; PULSE 68; RESP 16; TEMP 36.4; O2SAT 97
--- NOTE | 2020-12-25 15:06 | CMSP_ITS ---
- If Service Date Differs Date of service: 12/25/20 Time of Service: 15:07 Care Management Safety Plan Status: Involuntary Safety plan has been established to meet the needs of the patient, and consideration of the care team, to adhere to patient goals, identify restrictions based on behavioral status, address nutrition, and determine allowed personal belongings, tools for hygiene and personal care. Determine level of activity including ambulation, level of supervision, visitors, and determine privileges based on behaviors and level of engagement by pt. SAFETY PLAN: 1. Will remain on SI/HI precautions and in paper clothes. 2. Will remain in room under direct supervision of one-on-one staff at all times provided by [employer], TIRE MOLD TESTER, STERILE TECH cooling system operator. 3. May have paper cups, plates, finger foods as well as a cardboard spoon with which to eat meals. 4. Follow [facility] Management of the Admitted Behavioral Health Patient policy. 5. Comfort bath system only. 6. Personal belongings permitted per RN discretion. 7. Visitors: No visitors per current Covid Policy. 8. Activities: activities permitted per RN discretion. 9. Bathroom privileges with escort in ED. 10. Phone: permitted phone contact when requested, per RN discretion. 11. Due to INVOLUNTARY status, patient is being held at [facility] by the Department of Mental Health ([facility]) until 2nd certification by [facility] Psychiatrist can be performed (within 24 hours). Staff will provide de-escalation support (CPI) as needed. If patient wishes to leave [facility], staff will contact [facility] Crisis Screener ([phone]) and On-Call Lead Recreation Assistant ([phone]) as soon as possible. In the event of elopement, notify [facility] Police ([phone]). Patient is currently involuntarily at [facility]. [facility] Frontline Director Of Strategic Partnerships will continue seeking placement. Please contact the Automobile Body Repair Chief Lead Recreation Assistant ([phone]) for any needed changes to Safety Plan. Safety plan has been provided to interdepartmental care team. Patient will be transported by [facility] at time of discharge.
--- NOTE | 2020-12-25 15:37 | PDOC.MHCN ---
Date of service: 12/25/20 Time of Service: 15:37 Mental Health Crisis Note Presenting Issue How did you arrive at the ED and why did you come: Pt arrived yesterday 12.24.2020 for evaluation after she called [facility] numerous times over the previous 254 hours reporting that her was in her home with his girlfriend. She was placed on EE status after Precipitating Factors Pt denied SI and HI today. She is still presenting as delusional. Disposition BEHAVIOR: Pt is minimally cooperative during the assessment. She is agitated and demanding to go home. EYE CONTACT: Pt makes good eye contact. MOOD: Pt is agitated and at times hysterical. AFFECT: Pt's affect is anxious APPETITE: Pt is reported to be eating okay. SLEEP(trouble falling/staying asleep: Pt is reported to have slept last night. Plan Based on the Pt's inability to safety plan and see that what she is experiencing may be a hallucination/delusion and her unwillingness to go to a facility voluntarily this clinician's professional opinion is that she remain on EE status pending the second evaluation by a psychiatrist later today. Pt will remain on EE status until she is screened by a psychiatrist. Referrals were sent to [facility], [facility] (will get back to [facility] tomorrow), and [facility] Signature Clinician's Name/Title: Tamiko Salomon MS, [facility] Emergency Services Clinician, [facility]
--- NOTE | 2020-12-25 15:43 | NUR.NOTE ---
Nursing Note: Leon Sánchez, (on HIPPA form) Home [phone]; cell [phone]. Can be called about care of pt cats. Yaneli Farmer
--- NOTE | 2020-12-25 19:57 | PDOC.ERCMPRO ---
- If Service Date Differs Date of service: 12/25/20 Time of Service: 19:57 Care Management Progress Note Fawn was evaluated and subsequently placed on involuntary status by Lucas Jarquin, [facility] Crisis Screener, last evening. Tonight, the Second Certification by [facility] Psychiatrist took place and Dr. Cami Soto found that Fawn did not meet criteria for involuntary status, due to her belief that Fawn's symptoms/condition are derived from a dementia as opposed to a psychiatric disorder. Dr. Soto did, however, find that Fawn lacks the capacity to make her own decisions and strongly recommended she not be allowed to leave the hospital and return home. Dr. Soto additionally recommended low dose Haldol, elimination of anti-cholinergic medication, and that Seroquel and Topamax be put on hold. Fawn was extremely agitated during the Second Certification and eventually ordered that remove the tablet from her room, telling the psychiatrist her questions were upsetting her. The plan is for Fawn to remain at [facility] this evening and for [facility] to repeat the mental status examination tomorrow. [facility] is also instructed by Dr. Soto to research Fawn's psychiatric history in search of a primary psychiatric disorder other than depression, anxiety, or bipolar II disorder. Dr. Soto is of the opinion that the hallucinations Fawn is experiencing are due to dementia and not a psychiatric disorder, and a patient can not be placed on an involuntary hold for a neurological disorder such as dementia. If [facility] finds evidence of a primary psychiatric disorder, then Fawn will be put back on involuntary status tomorrow.
[2020-12-25] MEDS: Topiramate 50 MG TAB 75 MG PO (21:00)
[2020-12-25] MEDS: QUEtiapine 25 MG TAB 50 MG PO (21:41)
[2020-12-25] MEDS: Amitriptyline 25 MG TAB PO (21:41)
[2020-12-25] MEDS: QUEtiapine 100 MG TAB PO (21:41)
[2020-12-26] MEDS: hydrOXYzine HCL 25 MG TAB (04:32)
[2020-12-26] MEDS: Melatonin 3 MG TAB PO (04:33)
--- NOTE | 2020-12-26 07:45 | RT.EKG_ITS ---
APPROVED REPORT Exam: Resting ECG Patient Location: E HR:63 bpm ECG Measurements Heart Rate 63 AXIS LA 166 P 74 QRSd 93 QRS 43 QT 401 T 63 QTc 410 Conclusion Sinus rhythm...normal P axis, V-rate 60- 99
--- NOTE | 2020-12-26 08:26 | NUR.NOTE ---
Nursing Note: [facility] ([facility]aira [facility]) [phone] ext. [phone] then #. [facility] is aware of this service. They will be contacted about patient's disposition. .[facility] will suspend service until notified. Yaneli Farmer
[2020-12-26] MEDS: Haloperidol 1 MG TAB PO (08:32)
[2020-12-26] MEDS: busPIRone 15 MG TAB PO (08:32)
[2020-12-26] MEDS: cloNIDine 0.1 MG TAB PO ×2 (08:32→20:22)
[2020-12-26] MEDS: Levothyroxine 25 MCG TAB 12.5 MCG PO (08:32)
[2020-12-26] MEDS: Mirabegron 25 MG TABCR PO (08:33)
[2020-12-26] MEDS: Pantoprazole 40 MG TABCR PO (08:33)
[2020-12-26] MEDS: LORazepam 1 MG TAB PO ×4 (08:33→20:22)
[2020-12-26 10:11] VITALS: BP 178/90; PULSE 69; RESP 18; TEMP 36.5; O2SAT 98
--- NOTE | 2020-12-26 10:12 | W.PM.HP.N ---
Date of service: 12/26/20 Assessment and Plan Assessment and plan (1) Hallucination, visual: Status: Acute Assessment and plan: Patient has been reassessed by mental health, and at this time the second certification did not pass. Psychiatry is concerned that the patient symptoms may be due to dementia and not a mental health crisis. They have recommended that the patient remain in the emergency department, and that the mental health team evaluate for previous instances of mental health issues, and previous dementia issues. We will follow recommendations of Dr. Cami Soto to initiate low-dose Haldol and discontinue Seroquel and Topamax. (2) Hypothyroidism: Status: Acute Assessment and plan: TSH 1.09 on December 24 2020 (3) Bipolar disorder: Status: Acute (4) Hypertension: Status: Chronic Assessment and plan: blood pressure stable, continue clonidine and monitor. (5) Discharge planning issues: Status: Acute Assessment and plan: case management following anticipate need for resources at discharge. Discussed with Dr Rubio History of Present Illness History of Present Illness Chief Complaint: psychosis Narrative: This is a 74-year-old female with known history of bipolar disorder, anxiety disorder, mixed personality disorder, recent ED visit, returns with EMS with severe anxiety and hallucinations. Patient acknowledges that she has been having hallucinations of her . She is fearful of being in her home. Apparently she called the police today and when please arrived they found that the house have been taped by the patient from the inside to secure the door. EMS concerned that she is not able to care for herself in her home. On exam patient is labile, extremely anxious, intermittently tearful. Patient is currently not here voluntarily as she is afraid to be here and wants to be home with her cats. She also notes that she is afraid to be at home because of her . She was cleared medically and underwent a psychiatric evaluation and was EE'd. She was held in the ED until a psychiatric bed became available. She was not held on second recert but was not safe for discharge to home d/t ongoing psychosis so will be admitted to med/surg for further medication management. Her case was discussed with Dr Cami Soto who recommended discontinuing topamax and seroquel and starting haldol 1 mg po bid. Review of Systems All systems reviewed & are unremarkable except as noted in HPI and below PFSH Medical History ASCVD (arteriosclerotic cardiovascular disease) Bipolar 2 disorder Breast cancer 1999-Right infiltrating ductal Chronic constipation Chronic insomnia Dementia Diabetes resolved with weight loss Dyspnea Fibromyalgia GERD (gastroesophageal reflux disease) Glaucoma Headache Hyperlipidemia Hyponatremia from psychiatric meds. on fluid restriction Hypothyroid Myocardial infarction Osteoarthritis Sciatica Vitamin B12 deficiency Surgical History BUNIONECTOMY LEFT FOOT-02/24/15 CARDIAC CATH LEFT, EF 70% History of bilateral oophorectomy History of cataract surgery History of cataract surgery History of knee replacement History of knee replacement History of lumpectomy Oophrectomy, Both L/S bilat prophylactic oopherectomy Family History Mother Neoplasm BREAST Father Heart disease Brother No problems noted. Grandfather No problems noted. FAMILY HISTORY Depression Social History Smoking/Tobacco Use Status: Current every day Tobacco Type: cigarettes Smoking risk assessment performed?: Yes Alcohol Intake: former Drug use: Never Substance use type: does not use Household members: other Details: SELF Pets and animals: Yes (cat) Current gender identity: female What type of physical activity do you participate in: none Mini/Mormon: Unitarian Universalist Special mini needs: No Do you feel safe at home: Yes Do you feel safe in your relationship?: Yes Additional Social history: Lives alone with her 2 cats Meds Home Medications and Allergies Allergies Allergy/AdvReac Type Severity Reaction Status Date / Time morphine AdvReac Mild VOMITS Verified 12/23/20 18:23 Home Medications Medication Instructions Recorded Confirmed Type ibuprofen 200 mg PO am prn tab-cap 05/06/18 12/24/20 History melatonin 10 mg capsule 10 mg PO HS PRN 05/14/19 12/23/20 History clonidine HCl 0.1 mg tablet 0.1 mg PO BID 06/02/19 12/24/20 History calcium polycarbophil 625 mg tablet 625 mg PO DAILY #90 tab 06/10/19 12/08/20 Rx cyanocobalamin (vitamin B-12) 1,000 mcg PO DAILY #90 cap 06/10/19 12/08/20 Rx 1,000 mcg capsule quetiapine 50 mg PO HS 11/14/19 12/24/20 History quetiapine 100 mg tablet 100 mg PO HS tab 11/17/19 12/24/20 History docusate sodium 100 mg capsule 100 mg PO BID #180 cap 01/25/20 12/24/20 Rx levothyroxine 25 mcg tablet 12.5 mcg PO DAILY #45 tab-cap 03/17/20 12/24/20 Rx magnesium 250 mg tablet 250 mg PO DAILY #90 tab 04/11/20 12/08/20 Rx pantoprazole 40 mg tablet,delayed 40 mg PO DAILY #90 tab-cap 04/11/20 12/24/20 Rx release potassium chloride 20 mEq 20 meq PO DAILY #90 tab-cap 04/11/20 12/24/20 Rx tablet,extended release hydroxyzine HCl 10 mg tablet 10 - 20 mg PO DIRECTED 09/22/20 12/23/20 History hydroxyzine HCl 25 mg tablet 25 mg PO QAM tab 09/22/20 12/23/20 History topiramate 25 mg tablet 25 mg PO BID #60 tab 11/13/20 12/24/20 Rx topiramate 50 mg tablet 50 mg PO BID #60 tab 11/13/20 12/24/20 Rx clotrimazole-betamethasone 1 1 applic TOPICAL BID #45 g 11/22/20 Rx %-0.05 % topical cream sertraline 50 mg tablet 50 mg PO DAILY #90 tab 11/27/20 12/24/20 Rx amitriptyline 25 mg PO HS 12/23/20 12/26/20 History buspirone 15 mg PO BID 12/23/20 12/24/20 History lorazepam 1 mg PO QID 12/23/20 12/24/20 History mirabegron [Myrbetriq] 50 mg PO DIRECTED 12/23/20 12/24/20 History sulfamethoxazole-trimethoprim 1 tab DIRECTED 12/23/20 12/23/20 History Exam Const General: cooperative and anxious Nutritional Appearance: thin Orientation: alert, awake and oriented x3 HENMT Head: normocephalic and atraumatic Mouth: moist mucous membranes Eyes Conjunctivae: normal conjunctivae Sclera: normal sclerae Neck Neck: supple Resp Auscultation: clear to auscultation bilaterally, no rales, no rhonchi and no wheezes Cardio Rate: regular rate and not tachycardic Rhythm: regular rhythm GI Palpation: soft, not firm, no guarding, no masses, not rigid and nontender Skin General skin exam: no rashes or lesions noted Neuro General: patient alert, patient awake, patient oriented x3 and tone normal Extrem General: no edema Psych Appearance: grossly normal Mental Status: mental status grossly normal Mood: anxious mood Affect: anxious affect Attitude: cooperative Thought Process: normal Thought Content: hallucinations, no homicidality and suicidality Results Labs Result diagrams: 12/24/20 16:55 12/24/20 16:55 Last Vital Signs Temp 36.5 C 12/26/20 10:11 Pulse 69 12/26/20 10:11 Resp 18 12/26/20 10:11 BP 178/90 H 12/26/20 10:11 Pulse Ox 98 12/26/20 10:11 COVID-19 Screening Have you, or household traveled for leisure in last 14 days?: No Had IN PERSON contact w/suspected or confirmed C-19 person: No
--- NOTE | 2020-12-26 11:51 | NUR.NOTE ---
Nursing Note: 11:53 Patient asked what day it was,and she is now in the bathroom.
--- NOTE | 2020-12-26 12:23 | NUR.NOTE ---
12:23Patient has crying times and she is shaking it will last 2 minutes and then she calms downNursing Note:
--- NOTE | 2020-12-26 13:23 | NUR.NOTE ---
13:23 She is crying a lot and she was very upset with her lunch so late then she started crying alotNursing Note:
--- NOTE | 2020-12-26 13:55 | NUR.NOTE ---
13:55 Chris does not wish to talk to me she is upset with and said i had no right to be in her home.Nursing Note:
--- NOTE | 2020-12-26 14:00 | NUR.NOTE ---
2:00 she is crying she talked to the nurse now she is a little more calm. She is asking for meds.Nursing Note:
--- NOTE | 2020-12-26 14:35 | NUR.NOTE ---
14:35 Patient is now a bit more calm and in her bed,it is ok to go in her room and talk to her and she is now very polite.Nursing Note:
--- NOTE | 2020-12-26 15:01 | NUR.NOTE ---
Nursing Note: patient got up from the bed and walked to the bathroom. she requested soap. soap was given to her. patient is back in bed.
--- NOTE | 2020-12-26 15:42 | NUR.NOTE ---
Nursing Note: patient is persistently tearful and anxious when CPSO is in the room. patient is very worried about her cats. shes misses them and wants to be able to see them again. patient is lying in her bed. CPSO unmuted the television which has seemed to distract the patient some.
--- NOTE | 2020-12-26 17:00 | CHAPLAIN ---
Fawn had been moved to Room 235 when I visited. She remembered me from previous admissions. She became teary telling me about her need for a bufferer because of people wanting to take her house and her money. She mentioned Bony going out with other women, and taking her money. When I asked if she was talking about her Bony, (who about 4 years ago) she said no. She asked me to call her friend and former studio grip, Leon Young. Leon said to reassure Fawn that he is taking care of her cats, and he is looking into legal matters for her. Fawn's other concern was that she usually takes 30 pills a day, she said, and she has only be given one. I passed this concern on to her Residential Counselor, Raven Rivas. I'll let Fawn know what Leon said.
--- NOTE | 2020-12-26 18:53 | INITIAL_ITS ---
- If Service Date Differs Date of service: 12/26/20 Time of Service: 18:54 Care Management Initial Assess REASON FOR HOSPITALIZATION:: Delirium. PAST MEDICAL HISTORY/PAST SURGICAL HISTORY:: Medical History: ASCVD (arteriosclerotic cardiovascular disease), Bipolar 2 disorder, Breast cancer - 1998-Right infiltrating ductal, Chronic constipation, Chronic insomnia, Dementia, Diabetes - resolved with weight loss, Dyspnea, Fibromyalgia, GERD (gastroesophageal reflux disease),. Glaucoma, Headache, Hyperlipidemia, Hyponatremia - from psychiatric meds. on fluid restriction, Hypothyroid, Myocardial infarction, Osteoarthritis, Sciatica, and Vitamin B12 deficiency. Surgical History: BUNIONECTOMY - LEFT FOOT-02/24/15, CARDIAC CATH - LEFT, EF 70%, History of bilateral oophorectomy, History of cataract surgery, History of knee replacement, History of lumpectomy, and Oophrectomy, Both - L/S bilat prophylactic oopherectomy. PREVIOUS FUNCTIONAL STATUS/SOCIAL/FAMILY SUPPORTS:: Fawn is a 74-year-old female who resides alone in her own home in [place], [place], with her two cats. Her only family is an older brother who resides in [facility], but she and her brother are estranged. 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 Fawn has an extensive psychiatric history with multiple hospitalizations. Diagnoses of record are depression, anxiety, and bipolar disorder. Fawn is independent with her ADLs at baseline and she still drives. CURRENT FUNCTIONAL STATUS:: Fawn is laying in bed when CM meets with her. She is agitated, sporadically crying out and yelling help me. She is only able to have a conversation for a few minutes before becoming distraught. CM will continue to follow. ADVANCE DIRECTIVES:: On file; Lindsey Lugo is listed as her Health Care Agent and Leon Young as alternative Health Care Agent. Has patient been provided with info about the portal/API?: Yes Did the patient sign up for the portal?: Yes (Previously enrolled) CODE STATUS:: DNR/DNI INSURANCE COVERAGE / FINANCIAL ISSUES:: Medicare and [employer]. CURRENT HOME/COMMUNITY SERVICES/EQUIPMENT:: Fawn sees a therapist, Varsha Oliver, at [facility], and has a rifle case repairer through [facility] (Beatriz Waterman). She also had a private caregiver for 20 hours per week through [facility] but she reportedly recently fired the caregiver. PRIMARY CARE PHYSICIAN:: Valerio Granger MD POTENTIAL DISCHARGE NEEDS:: A geriatric psych placement to stabilize her mood. PATIENT/FAMILY EDUCATION NEEDS:: Discharge instructions and follow up plan of care, including Ask Me Three and self-management. ANTICIPATED BARRIERS TO DISCHARGE:: Fawn's refusal of services. TRANSPORTATION:: To be determined based on disposition. PLAN:: A referral is made to the [facility]. If Fawn is accepted at the geriatric psych facility, she likely will be transported via [facility]. CM will continue to follow.
[2020-12-26] MEDS: LORazepam 0.5 MG TAB PO (19:08)
[2020-12-26] MEDS: Haloperidol 1 MG TAB 2 MG PO (19:08)
[2020-12-26] MEDS: Docusate Sodium 100 MG CAP PO (20:22)
[2020-12-26] MEDS: Melatonin 3 MG TAB 9 MG PO (20:22)
[2020-12-26] MEDS: Amitriptyline 25 MG TAB PO (20:59)
--- NOTE | 2020-12-27 04:25 | NUR.NOTE ---
Nursing Note: 12/27 Patient is agitated and restless tonight pointing fingers at staff. Patient making non sensical statements. Patient is however distractible and can be talked to calm down. Will continue to monitor
[2020-12-27] MEDS: Levothyroxine 25 MCG TAB 12.5 MCG PO (06:38)
[2020-12-27] MEDS: Haloperidol 5 MG/ML VIAL 2 MG IM (08:12)
--- NOTE | 2020-12-27 08:59 | W.PM.PROGNOT ---
Date of Service Date of service: 12/27/20 Time of Service: 08:59 Assessment and Plan Assessment and plan (1) Hallucination, visual: Status: Acute Assessment and plan: Patient has been reassessed by mental health, and at this time the second certification did not pass. Psychiatry is concerned that the patient symptoms may be due to dementia and not a mental health crisis. required IM haldol this morning, with good effect. We will follow recommendations of Dr. Cami Soto to initiate low-dose Haldol and discontinue Seroquel and Topamax. (2) Hypothyroidism: Status: Acute Assessment and plan: TSH 1.09 on December 24 2020 (3) Bipolar disorder: Status: Acute (4) Hypertension: Status: Chronic Assessment and plan: blood pressure stable, continue clonidine and monitor. (5) Discharge planning issues: Status: Acute Assessment and plan: case management following anticipate need for resources at discharge. Discussed with Dr Rubio Subjective Subjective Interval history since last seen: patient remains confused and agitated. unable to redirect. non compliant with medication. required IM haldol this morning for comfort d/t to severe distress. remains medically stable. Exam Const General: cooperative and anxious Nutritional Appearance: thin Orientation: alert, awake and oriented x3 HENMT Head: normocephalic and atraumatic Mouth: moist mucous membranes Eyes Conjunctivae: normal conjunctivae Sclera: normal sclerae Neck Neck: supple Resp Auscultation: clear to auscultation bilaterally, no rales, no rhonchi and no wheezes Cardio Rate: regular rate and not tachycardic Rhythm: regular rhythm GI Palpation: soft, not firm, no guarding, no masses, not rigid and nontender Skin General skin exam: no rashes or lesions noted Neuro General: patient alert, patient awake, patient oriented x3 and tone normal Extrem General: no edema Psych Appearance: grossly normal Mental Status: mental status grossly normal Mood: anxious mood Affect: anxious affect Attitude: cooperative Thought Process: normal Thought Content: hallucinations, no homicidality and suicidality Objective Last Vital Signs Temp 36.5 C 12/26/20 10:11 Pulse 69 12/26/20 10:11 Resp 18 12/26/20 10:11 BP 178/90 H 12/26/20 10:11 Pulse Ox 98 12/26/20 10:11
[2020-12-27] MEDS: Docusate Sodium 100 MG CAP PO ×2 (09:46→19:02)
[2020-12-27] MEDS: Pantoprazole 40 MG TABCR PO (09:47)
[2020-12-27] MEDS: hydrOXYzine HCL 25 MG TAB PO (09:47)
[2020-12-27] MEDS: Cyanocobalamin 500 MCG TAB 1000 MCG PO (09:47)
[2020-12-27] MEDS: Haloperidol 1 MG TAB PO ×2 (09:47→19:02)
[2020-12-27] MEDS: LORazepam 1 MG TAB PO ×4 (09:47→19:02)
[2020-12-27] MEDS: Magnesium Oxide 400 MG TAB PO (09:47)
[2020-12-27] MEDS: Mirabegron 25 MG TABCR PO (09:47)
[2020-12-27] MEDS: cloNIDine 0.1 MG TAB PO ×2 (09:57→19:02)
--- NOTE | 2020-12-27 15:26 | CHAPLAIN ---
I visited with Fawn shortly before she went to the [facility] to meet with her friend, Rev. Leon Young. Fawn asked me to reminder of Ry Mendenhall's name. Leon is a long time friend and former electronic scale subassembler of [employer]. He is feeding her cats for her while she is here. Fawn trusts Ry and has a calming effect on her.
[2020-12-27 16:35] VITALS: BP 167/77; PULSE 67; RESP 18; TEMP 36.8; O2SAT 97
--- NOTE | 2020-12-27 18:34 | CMPROGNOTE_ITS ---
- If Service Date Differs Date of service: 12/27/20 Time of Service: 18:34 Care Management Progress Note S/O: Fawn met with Pastor Young in the chapel today. He was able to get her to agree to go to a psych facility, which she had been refusing. CM coordinated efforts with Beatriz Waterman, Fawn's COA case management assistant, to begin the process of applying for emergency guardianship, though paperwork has yet to be filed with the court. Fawn became agitated prior to meeting with her topographical field assistant, requiring IM Haldol. Since then, she has been calm and cooperative and she seemed to enjoy her visit with Pastor Young, who is clearly a source of support for her. A: Fawn is a 74 year old female admitted to [facility] on 12/24/2020 for delirium. P: Fawn is accepted for admission at the [facility] with an admission time of 10:00 am on morning. She will be transported to the facility via adaptive physical education specialist in the a.m. CM will continue to follow.
[2020-12-27] MEDS: Amitriptyline 25 MG TAB PO (21:36)
[2020-12-27] MEDS: Melatonin 3 MG TAB 9 MG PO (21:36)
[2020-12-27 23:42] VITALS: BP 133/76; PULSE 66; RESP 16; TEMP 36; O2SAT 97
[2020-12-28] MEDS: Levothyroxine 25 MCG TAB 12.5 MCG PO (05:53)
[2020-12-28 05:55] VITALS: BP 129/73; PULSE 68; RESP 18; TEMP 36.7; O2SAT 99
[2020-12-28 07:37] VITALS: BP 115/66; PULSE 64; RESP 18; TEMP 36.7; O2SAT 98
[2020-12-28] MEDS: cloNIDine 0.1 MG TAB PO (07:53)
[2020-12-28] MEDS: LORazepam 1 MG TAB PO (07:53)
[2020-12-28] MEDS: hydrOXYzine HCL 25 MG TAB PO (07:53)
[2020-12-28] MEDS: Mirabegron 25 MG TABCR PO (07:53)
[2020-12-28] MEDS: Docusate Sodium 100 MG CAP PO (07:53)
[2020-12-28] MEDS: Magnesium Oxide 400 MG TAB PO (07:54)
[2020-12-28] MEDS: Pantoprazole 40 MG TABCR PO (07:54)
[2020-12-28] MEDS: Haloperidol 1 MG TAB PO ×2 (07:54→09:04)
[2020-12-28] MEDS: Potassium Chloride Liquid 20 MEQ PKT PO (07:54)
[2020-12-28] MEDS: Cyanocobalamin 500 MCG TAB 1000 MCG PO (07:54)
[2020-12-28] MEDS: Polyethylene Glycol 3350 17 GM PACKET PO (08:33)
--- NOTE | 2020-12-28 08:33 | W.PM.DS.N ---
Date of service: 12/28/20 Time of Service: 08:33 DS: Diagnosis Discharge Diagnosis (1) Hallucination, visual: Status: Acute (2) Hypothyroidism: Status: Acute (3) Bipolar disorder: Status: Acute (4) Hypertension: Status: Chronic Discharge Plan Disposition Patient Disposition: HOSPITAL, NON-SPECIFIC Condition: Stable Discharge Details Reason For Visit: DELIRIUM Admit Date/Time: 12/26/20 10:06 Admit Provider: Navdeep Rubio Attending Provider: Navdeep Rubio Primary Care Provider: Valerio Granger Hospital Course Hospital Course: This is a 74-year-old female with known history of bipolar disorder, anxiety disorder, mixed personality disorder, recent ED visit, returns with EMS with severe anxiety and hallucinations. Patient acknowledges that she has been having hallucinations of her . She is fearful of being in her home. Apparently she called the police and when please arrived they found that the house have been taped by the patient from the inside to secure the door. EMS concerned that she is not able to care for herself in her home. She was paranoid and with psychotic behaviors. She was cleared medically and underwent a psychiatric evaluation and was EE'd. She was held in the ED until a psychiatric bed became available. She was not held on second recert but was not safe for discharge to home d/t ongoing psychosis so was admitted to med/surg for further medication management. Her case was discussed with Dr Cami Soto who recommended discontinuing topamax and seroquel and starting haldol 1 mg po bid. while on med/surg she remained medically stable but continued to remain psychotic, refusing some care and medication. case management has been following and referrals placed and she was accepted at [facility] for inpatient geripsychiatric care. she was resistive to leave at time of discharge and administered haldol 1 mg PO extra dose. she was also requesting miralax for constipation and was c/o urinary retention. She voided 550 cc urine this am. her case was discussed with ELIZABETH Maddox at [facility]. she will be transported by animal researcher with assistance of her nanosystems engineer. discharge discussed with DR Rubio Home Meds and New Rx's Prescriptions: New haloperidol 1 mg Tablet 1 mg PO BID Qty: 0 RF: 0 Myrbetriq 25 mg Tablet Extended Release 24 Hr 25 mg PO DAILY Qty: 0 RF: 0 Continued melatonin 10 mg capsule 10 mg PO HS PRNRF: 0 clonidine HCl 0.1 mg tablet 0.1 mg PO BID RF: 0 pantoprazole 40 mg tablet,delayed release (DR/EC) 40 mg PO DAILY Qty: 90 RF: 3 potassium chloride 20 mEq tablet extended release 20 meq PO DAILY Qty: 90 RF: 3 hydroxyzine HCl 25 mg tablet 25 mg PO QAM RF: 0 cyanocobalamin (vitamin B-12) 1,000 mcg capsule 1,000 mcg PO DAILY Qty: 90 RF: 3 docusate sodium 100 mg capsule 100 mg PO BID Qty: 180 RF: 3 levothyroxine 25 mcg tablet 12.5 mcg PO DAILY Qty: 45 RF: 3 magnesium 250 mg tablet 250 mg PO DAILY Qty: 90 RF: 3 amitriptyline 25 mg tablet 25 mg PO HS RF: 0 lorazepam 1 mg tablet 1 mg PO QID RF: 0 Discontinued quetiapine [Seroquel] 100 mg tablet 100 mg PO HS RF: 0 hydroxyzine HCl 10 mg tablet 10 - 20 mg PO DIRECTED RF: 0 ibuprofen 200 MG capsule 200 mg PO am prn RF: 0 calcium polycarbophil [Fiber-Tabs] 625 mg tablet 625 mg PO DAILY Qty: 90 RF: 3 topiramate 25 mg tablet 25 mg PO BID Qty: 60 RF: 11 topiramate 50 mg tablet 50 mg PO BID Qty: 60 RF: 11 clotrimazole-betamethasone 1-0.05 % cream 1 applic topical BID Qty: 45 RF: 0 sertraline 50 mg tablet 50 mg PO DAILY Qty: 90 RF: 3 quetiapine 50 mg Tablet 50 mg PO HS RF: 0 buspirone 15 mg tablet 15 mg PO BID RF: 0 Myrbetriq 50 mg tablet extended release 24 hr 50 mg PO DIRECTED RF: 0 sulfamethoxazole-trimethoprim 400-80 mg tablet 1 tab DIRECTED RF: 0 Discharge Instructions Instructions: Psychotic Disorder (DC) Stand Alone Forms: Nursing Discharge Form Activity:: Activity as Tolerated Equipment/Supplies:: No Equipment Needed Diet:: As Tolerated Discharge Orders Discharge Orders: Discharge Order (Routine); Ordered 12/28/20 Ordered By: Lisa Martinez Discharge Data Discharge Date/Time-TO BE ENTERED AT DEPARTURE: 12/28/20 09:35 DS: Summary Time Spent with Patient providing and/or coordinating discharge services: Greater than 30 minutes Status at Discharge Functional status at discharge: independent ambulation Overall status at discharge: patient is not back to baseline Mental Status: mental status grossly normal Speech and Movement: speech and movement normal Mood: anxious mood Affect: anxious affect Exam Const General: cooperative and anxious Nutritional Appearance: thin Orientation: alert, awake and oriented x3 HENMT Head: normocephalic and atraumatic Mouth: moist mucous membranes Eyes Conjunctivae: normal conjunctivae Sclera: normal sclerae Neck Neck: supple Resp Auscultation: clear to auscultation bilaterally, no rales, no rhonchi and no wheezes Cardio Rate: regular rate and not tachycardic Rhythm: regular rhythm GI Palpation: soft, not firm, no guarding, no masses, not rigid and nontender Skin General skin exam: no rashes or lesions noted Neuro General: patient alert, patient awake, patient oriented x3 and tone normal Extrem General: no edema Psych Appearance: grossly normal Mental Status: mental status grossly normal Speech and Movement: speech and movement normal Mood: anxious mood Affect: anxious affect Attitude: cooperative Thought Process: normal Thought Content: hallucinations, no homicidality and suicidality DS: Data Vitals/I&O Vitals and I&O: Vital Signs Temperature 36.7 C 12/28/20 07:37 Temperature Source Tympanic 12/28/20 07:37 Pulse 64 12/28/20 07:37 Pulse Rhythm Regular 12/28/20 06:41 Respiratory Rate 18 12/28/20 07:37 Respiratory Effort Non-Labored 12/28/20 06:41 Respiratory Depth Normal 12/28/20 06:41 Respiratory Pattern Normal 12/28/20 06:41 Blood Pressure 115/66 12/28/20 07:37 Blood Pressure Position Sitting 12/24/20 15:06 Pulse Oximetry 98 12/28/20 07:37 Oxygen Delivery Method Room Air 12/28/20 07:37 Oxygen Flow Rate 0 12/28/20 07:37 Pain Level 8 12/28/20 07:37 Intake & Output 12/27/20 12/27/20 12/28/20 11:59 23:59 11:59 Intake Total 360 / 1300 940 / 1300 50 / 50 Output Total 300 / 300 650 / 650 Balance 360 / 1000 640 / 1000 -600 / -600 Intake: Oral 360 / 1300 940 / 1300 50 / 50 Output: Urine 300 / 300 650 / 650 Other: Urine Color Yellow Yellow Pale Yellow Urine Appearance Clear Clear Clear Urine Odor Normal Normal Comment Pt voided into hat but immediately emptied hat into toilet and flushed. Urine not visualized by RN. Pt reports urine was clear and yellow. Pt educated on importance of leaving urine in hat for RN to assess for accurate I&Os. Pt verbalized understanding. Voiding Methods Toilet Toilet Toilet Data Completed and Pending Labs on day of discharge: Labs from last 24 hours 12/27/20 12/27/20 05:35 05:35 WBC Cancelled RBC Cancelled Hgb Cancelled Hct Cancelled MCV Cancelled MCH Cancelled MCHC Cancelled RDW Cancelled Plt Count Cancelled MPV Cancelled Immature Gran % Cancelled Neutrophils % Cancelled Band Neutrophils % Cancelled Lymphocytes % Cancelled Atypical Lymphs % Cancelled Monocytes % Cancelled Eosinophils % Cancelled Basophils % Cancelled Metamyelocytes % Cancelled Myelocytes % Cancelled Promyelocytes % Cancelled Other Cells % Cancelled Nucleated RBC % Cancelled Absolute Neutrophils Cancelled Absolute Lymphocytes Cancelled Absolute Monocytes Cancelled Absolute Eosinophils Cancelled Absolute Basophils Cancelled RBC Morphology Cancelled Polychromasia Cancelled Hypochromasia Cancelled Poikilocytosis Cancelled Basophilic Stippling Cancelled Anisocytosis Cancelled Microcytosis Cancelled Macrocytosis Cancelled Spherocytes Cancelled Tear Drop Cells Cancelled Ovalocytes Cancelled Stomatocytes Cancelled [place] Bodies Cancelled [place] Cells/Echinocytes Cancelled Acanthocytes (Spur) Cancelled Schistocytes Cancelled Sodium Cancelled Potassium Cancelled Chloride Cancelled Carbon Dioxide Cancelled Anion Gap Cancelled BUN Cancelled Creatinine Cancelled Estimated GFR/1.73 m2 Cancelled Glucose Cancelled Calcium Cancelled [facility] Medical History ASCVD (arteriosclerotic cardiovascular disease) Bipolar 2 disorder Breast cancer 1998-Right infiltrating ductal Chronic constipation Chronic insomnia Dementia Diabetes resolved with weight loss Dyspnea Fibromyalgia GERD (gastroesophageal reflux disease) Glaucoma Headache Hyperlipidemia Hyponatremia from psychiatric meds. on fluid restriction Hypothyroid Myocardial infarction Osteoarthritis Sciatica Vitamin B12 deficiency Surgical History BUNIONECTOMY LEFT FOOT-02/24/15 CARDIAC CATH LEFT, EF 70% History of bilateral oophorectomy History of cataract surgery History of cataract surgery History of knee replacement History of knee replacement History of lumpectomy Oophrectomy, Both L/S bilat prophylactic oopherectomy Family History Mother Neoplasm BREAST Father Heart disease Brother No problems noted. Grandfather No problems noted. FAMILY HISTORY Depression Social History Smoking/Tobacco Use Status: Current every day Tobacco Type: cigarettes Smoking risk assessment performed?: Yes Alcohol Intake: former Drug use: Never Substance use type: does not use Household members: other Details: SELF Pets and animals: Yes (cat) Current gender identity: female What type of physical activity do you participate in: none Mini/Latter-Day: Unitarian Universalist Special mini needs: No Do you feel safe at home: Yes Do you feel safe in your relationship?: Yes Additional Social history: Lives alone with her 2 cats
--- NOTE | 2020-12-28 10:26 | CMDISCH_ITS ---
- If Service Date Differs Date of service: 12/28/20 Time of Service: 10:26 LACE Index Scoring Tool - Questions: Length of Stay (in days): 4 - 6 Acuity (Admit via E.D.?): Yes Comorbidities: Any Tumor E.D. Visits: 5 - Answers: Total Score: 13 Risk of Readmission: High Risk Care Management Discharge Reason for Hospitalization: Delirium. Discharge Plan: Fawn is transferred to [facility]. She is transported via construction operations manager. Patient/Family Education Needs: Discharge instructions, expectations, and follow up plan of care. Services Needed at Discharge: Transportation (Via construction operations manager)
== END 2020-12-28 09:35 | disposition short-term general hospital (02) | DRG 125 ==
LOC: ER 12-26 10:27 → MS 12-26 11:20
PROVIDERS: Student in an Organized Health Care Education/Training Program; Admitting Provider Family Medicine; Emergency Provider Emergency Medicine; PCP Family Medicine; Visit Provider Family Medicine
DX: R44.1 Visual hallucinations (principal); E87.1 Hypo-osmolality and hyponatremia; R41.0 Disorientation, unspecified; E03.9 Hypothyroidism, unspecified; F31.9 Bipolar disorder, unspecified; I10 Essential (primary) hypertension; F60.89 Other specific personality disorders; I25.10 Atherosclerotic heart disease of native coronary artery without angina pectoris; K59.09 Other constipation; F51.04 Psychophysiologic insomnia; F03.90 Unspecified dementia, unspecified severity, without behavioral disturbance, psychotic disturbance, mood disturbance, and anxiety; M79.7 Fibromyalgia; K21.9 Gastro-esophageal reflux disease without esophagitis; H40.9 Unspecified glaucoma; E78.5 Hyperlipidemia, unspecified; I25.2 Old myocardial infarction; M15.9 Polyosteoarthritis, unspecified; E53.8 Deficiency of other specified B group vitamins; M54.30 Sciatica, unspecified side; F17.210 Nicotine dependence, cigarettes, uncomplicated
CPT/HCPCS: 36415; 80048; 80053; 80307; 93005; 99223; 99233; 99239; 99281; 99285; 80320; 80329; 81003; 84443; 85025; 93010; J1630

== ENCOUNTER 2021-02-20 14:30 | Outpatient (REF) | payer MEDICARE, OTHER, SELFPAY ==
[2021-02-20 21:39] LABS: Bilirubin Negative (Negative); Blood Trace-lysed (Negative); Clarity Cloudy (Clear); Glucose Negative (Negative); Ketones Negative (Negative); Leukocyte Esterase Moderate (Negative); Nitrite Negative (Negative); Specific Gravity 1.015 (1.005-1.025); Urobilinogen 0.2 EU/dL (Up TO 0.2)
[2021-02-20 22:10] LABS: Bacteria Many HPF (Negative); C & S Indicated? Yes; WBC >50 HPF (0-5)
== END 2021-02-20 14:31 | disposition home or self-care (01) ==
LOC: LBN 14:30
PROVIDERS: Family Medicine; PCP Family Medicine; Visit Provider Family Medicine
DX: R30.0 Dysuria (principal)
CPT/HCPCS: 87077; 81003; 81015; 87086; 87186

== ENCOUNTER → 2021-03-29 14:58 | Outpatient (BNVA) | payer MEDICARE, OTHER, SELFPAY | PROVIDERS: PCP Family Medicine; Referring Provider Family Medicine; Visit Provider Nurse Practitioner Gerontology | DX: N32.81 Overactive bladder (principal) | CPT/HCPCS: 99213 ==

== ENCOUNTER 2021-04-26 15:09 | Outpatient (REF) | payer MEDICARE, OTHER, SELFPAY ==
[2021-04-26 17:59] LABS: Bilirubin Negative (Negative); Blood Trace-intact (Negative); Clarity Clear (Clear); Glucose Negative (Negative); Ketones Negative (Negative); Leukocyte Esterase Negative (Negative); Nitrite Negative (Negative); Urobilinogen 0.2 EU/dL (Up TO 0.2); pH 6.5 (5-8)
[2021-04-26 18:08] LABS: Epithelial Cells Few HPF (Negative); RBC 0-2 HPF (0-2)
[2021-04-26 18:09] LABS: Bacteria Few HPF (Negative); C & S Indicated? C&S Done As Ordered; Casts Negative LPF (Negative); Crystals Negative HPF (Negative); Mucus Negative (Negative)
== END 2021-04-26 15:10 | disposition home or self-care (01) ==
LOC: LBN 15:09
PROVIDERS: PCP Family Medicine; Visit Provider Family Medicine
DX: R30.0 Dysuria (principal); N39.0 Urinary tract infection, site not specified; R10.2 Pelvic and perineal pain
CPT/HCPCS: 81003; 81015; 87086

== ENCOUNTER 2021-05-23 12:56 | Outpatient (REF) | payer MEDICARE, OTHER, SELFPAY | END 2021-05-23 12:57 | disposition home or self-care (01) | LOC: LBN 12:56 | PROVIDERS: PCP Family Medicine; Visit Provider Family Medicine | DX: N76.0 Acute vaginitis (principal) | CPT/HCPCS: 87480; 87510; 87660 ==

== ENCOUNTER 2021-08-03 13:27 | Outpatient (REF) | payer MEDICARE, OTHER, SELFPAY ==
[2021-08-03 21:49] LABS: HCT 40.1 % (36.0-46.0); HGB 13.4 g/dL (11.2-15.7); MCH 32.2 pg (27.0-33.0); MCHC 33.4 % (32.0-36.0); MCV 96.4 fL (80-95); MPV 9.1 fL (8.0-11.0); Platelet Count 201 10^3/uL (130-400); RBC 4.16 10^6/uL (3.93-5.22); RDW 12.3 % (11.7-14.6); RDW-SD 43.8 fL; WBC 6.84 10^3/uL (4.4-10.8)
[2021-08-03 22:08] LABS: ALT 19 U/L (14-59); AST 14 U/L (15-37); Albumin 4.1 g/dL (3.4-5.0); Alkaline Phosphatase 50 U/L (46-116); Anion Gap 9.4 mmol/L (3-11); BUN 15 mg/dL (7-18); Bilirubin, Total 0.7 mg/dL (0.2-1.0); CO2 26.6 mmol/L (21.0-32.0); Calcium 9.3 mg/dL (8.5-10.1); Chloride 99 mmol/L (98-107); Glucose 98 mg/dL (74-106); Magnesium 2.2 mg/dL (1.8-2.4); Potassium 4.2 mmol/L (3.5-5.1); Sodium 135 mmol/L (136-145); TSH 0.82 uIU/mL (0.36-3.74); Total Protein 7.4 g/dL (6.4-8.2)
== END 2021-08-03 13:28 | disposition home or self-care (01) ==
LOC: NCHCN 13:27
PROVIDERS: Visit Provider Registered Nurse
DX: E03.9 Hypothyroidism, unspecified (principal); N28.9 Disorder of kidney and ureter, unspecified; Z00.00 Encounter for general adult medical examination without abnormal findings
CPT/HCPCS: 80053; 85027; 83735; 84443